=== PATIENT | male | born 1955 | race Two or more races ===

== ENCOUNTER 2018-08-04 18:55 | Emergency (ER) | payer MEDICARE, OTHER, MEDICAID ==
--- NOTE | 2018-08-04 19:18 | EDM.PDOC ---
ED HPI GENERAL MEDICAL PROBLEM - General Chief Complaint: Headache Stated Complaint: HIGH BP/HEADACHE/CHEST PRESSURE Time Seen by Provider: 08/04/18 19:17 - History of Present Illness INITIAL COMMENTS - FREE TEXT/NARRATIVE: 63-year-old male presents emergency room with chest discomfort headache and his blood pressure may be up. Patient is not felt warm last several days. His chest pain is not worsened with exercise does not improve presses just there. No associated nausea vomiting with this the pain does not radiate anywhere. Patient said a headache mostly in the right side of his head. His wonders if this is due to his blood pressure began up. His blood pressures not escalated here. Patient is treated for hyperlipidemia He has no history of coronary artery disease he takes Coumadin for blood clot he had a pulmonary embolism some time back his regular physician is in [facility]. Patient has not had significant cough no fevers or chills. Duration: Other (This is been going on about the last 3 days.) Treatments STATISTICAL GENETICIST: Reports: Other (see below) Other Treatments STATISTICAL GENETICIST: none Headache Pain Score (Numeric/FACES): 6 - Related Data Allergies Allergy/AdvReac Type Severity Reaction Status Date / Time No Known Allergies Allergy Verified 08/04/18 19:07 Home Meds: Home Meds Colchicine 0.6 mg PO QID PRN 08/04/18 [History] LORazepam [Ativan] 0.5 mg PO Q24H #7 tablet 08/04/18 [Rx] Pantoprazole Sodium [Protonix] 40 mg PO DAILY 08/04/18 [History] Silodosin 8 mg PO DAILY 08/04/18 [History] Telmisartan/Hydrochlorothiazid [Telmisartan-Hctz 80-12.5 mg Tb] 1 tab PO DAILY 08/04/18 [History] Warfarin [Coumadin] 5 mg PO DAILY 08/04/18 [History] Past Medical History Cardiovascular History: Reports: Hypertension Gastrointestinal History: Reports: GERD Genitourinary History: Reports: Prostate Disorder Musculoskeletal History: Reports: Gout Hematologic History: Reports: Polycythemia Other Hematologic History: has phlebotmy once a month - Past Surgical History Musculoskeletal Surgical History: Reports: Shoulder Surgery, Other (See Below) Other Musculoskeletal Surgeries/Procedures:: knee surgery Social & Family History - Tobacco Use Smoking Status *Q: Never Smoker - Caffeine Use Caffeine Use: Reports: Coffee, Soda, Tea - Recreational Drug Use Recreational Drug Use: No ED ROS GENERAL - Review of Systems Review Of Systems: See Below Constitutional: Reports: No Symptoms HEENT: Reports: No Symptoms Respiratory: Denies: Shortness of Breath Cardiovascular: Reports: Chest Pain (Mild). Denies: Dyspnea on Exertion, Edema , Lightheadedness, Palpitations Endocrine: Reports: No Symptoms GI/Abdominal: Reports: No Symptoms : Reports: No Symptoms Neurological: Reports: No Symptoms Psychiatric: Reports: No Symptoms - Physical Exam Exam: See Below Exam Limited By: Other General Appearance: Alert, No Apparent Distress Eye Exam: Bilateral Eye: Normal Inspection Ears: Normal External Exam, Normal Canal, Hearing Grossly Normal, Normal TMs Nose: Normal Inspection, Normal Mucosa, No Blood Throat/Mouth: Normal Inspection, Normal Lips, Normal Teeth, Normal Gums, Normal Oropharynx, Normal Voice, No Airway Compromise Head Exam: Atraumatic, Normocephalic Neck: Normal Inspection, Supple, Non-Tender, Full Range of Motion. No: Lymphadenopathy (L), Lymphadenopathy (R) Respiratory/Chest: No Respiratory Distress, Lungs Clear, Normal Breath Sounds GI/Abdominal: Normal Bowel Sounds, Soft, Non-Tender Rectal (Males) Exam: Rectal Fissure Neuro Exam (Abbreviated): Alert, Oriented Back Exam: Normal Inspection. No: CVA Tenderness (L), CVA Tenderness (R) Extremities: Normal Inspection, No Pedal Edema, Mottled Psychiatric: Normal Affect Skin Exam: Warm, Dry, Intact Course - Vital Signs Last Recorded V/S: Last Vital Signs Temp 37.6 C 08/04/18 19:16 Pulse 90 08/04/18 19:16 Resp 20 08/04/18 19:16 BP 135/104 H 08/04/18 19:16 Pulse Ox 95 08/04/18 19:16 - Orders/Labs/Meds Orders: Active Orders 24 hr Category Date Time Status EKG Documentation Completion [RC] STAT Care 08/04/18 19:38 Active Chest 1V Frontal [CR] Stat Exams 08/04/18 19:38 Taken Labs: Laboratory Tests 08/04/18 08/04/18 08/04/18 Range/Units 19:55 19:55 19:55 WBC 7.11 (4.23-9.07) K/mm3 RBC 6.88 H (4.63-6.08) M/mm3 Hgb 19.9 H (13.7-17.5) gm/L Hct 58.9 H (40.1-51.0) % MCV 85.6 (79.0-92.2) fl MCH 28.9 (25.7-32.2) pg MCHC 33.8 (32.2-35.5) g/dl RDW Std Deviation 47.6 H (35.1-43.9) fL Plt Count 151 L (163-337) K/mm3 MPV 12.6 H (9.4-12.3) fl Neutrophils % (Manual) 66 H (40-60) % Band Neutrophils % 0 (0-10) % Lymphocytes % (Manual) 25 (20-40) % Atypical Lymphs % 0 % Monocytes % (Manual) 7 (2-10) % Eosinophils % (Manual) 2 (0.8-7.0) % Basophils % (Manual) 0 L (0.2-1.2) Platelet Estimate Adequate RBC Morph Comment Normal PT (9.5-12.1) SECONDS INR Sodium 140 (136-145) mEq/L Potassium 3.9 (3.5-5.1) mEq/L Chloride 104 (98-107) mEq/L Carbon Dioxide 25 (21-32) mEq/L Anion Gap 14.9 (5-15) BUN 21 H (7-18) mg/dL Creatinine 1.2 (0.7-1.3) mg/dL Est Cr Clr Drug Dosing 60.17 mL/min Estimated GFR (MDRD) > 60 (>60) mL/min BUN/Creatinine Ratio 17.5 (14-18) Glucose 117 H (80-115) mg/dL Calcium 9.4 (8.5-10.1) mg/dL Magnesium 2.1 (1.8-2.4) mg/dl Total Bilirubin 0.7 (0.2-1.0) mg/dL AST 14 L (15-37) U/L ALT 24 (16-63) U/L Alkaline Phosphatase 122 H (46-116) U/L Troponin I < 0.017 (0.00-0.056) ng/mL Total Protein 7.4 (6.4-8.2) g/dl Albumin 4.0 (3.4-5.0) g/dl Globulin 3.4 gm/dL Albumin/Globulin Ratio 1.2 (1-2) Pre Ther Phlebot Pulse Pre Ther Phlebot BP Therapeut Phleb Volume mL Post Ther Phleb Pulse Post Ther Phlebot BP 08/04/18 08/04/18 Range/Units 19:55 20:53 WBC (4.23-9.07) K/mm3 RBC (4.63-6.08) M/mm3 Hgb (13.7-17.5) gm/L Hct (40.1-51.0) % MCV (79.0-92.2) fl MCH (25.7-32.2) pg MCHC (32.2-35.5) g/dl RDW Std Deviation (35.1-43.9) fL Plt Count (163-337) K/mm3 MPV (9.4-12.3) fl Neutrophils % (Manual) (40-60) % Band Neutrophils % (0-10) % Lymphocytes % (Manual) (20-40) % Atypical Lymphs % % Monocytes % (Manual) (2-10) % Eosinophils % (Manual) (0.8-7.0) % Basophils % (Manual) (0.2-1.2) Platelet Estimate RBC Morph Comment PT 14.1 H (9.5-12.1) SECONDS INR 1.30 Sodium (136-145) mEq/L Potassium (3.5-5.1) mEq/L Chloride (98-107) mEq/L Carbon Dioxide (21-32) mEq/L Anion Gap (5-15) BUN (7-18) mg/dL Creatinine (0.7-1.3) mg/dL Est Cr Clr Drug Dosing mL/min Estimated GFR (MDRD) (>60) mL/min BUN/Creatinine Ratio (14-18) Glucose (80-115) mg/dL Calcium (8.5-10.1) mg/dL Magnesium (1.8-2.4) mg/dl Total Bilirubin (0.2-1.0) mg/dL AST (15-37) U/L ALT (16-63) U/L Alkaline Phosphatase (46-116) U/L Troponin I (0.00-0.056) ng/mL Total Protein (6.4-8.2) g/dl Albumin (3.4-5.0) g/dl Globulin gm/dL Albumin/Globulin Ratio (1-2) Pre Ther Phlebot Pulse 94 Pre Ther Phlebot BP 152/134 Therapeut Phleb Volume 500 mL Post Ther Phleb Pulse 86 Post Ther Phlebot BP 131/101 - Re-Assessments/Exams Free Text/Narrative Re-Assessment/Exam: 08/04/18 21:21 Evaluation is basically unremarkable still waiting on his INR. He was phlebotomized one unit and feels much better chest pain gone headache gone awaiting his INR. He feels pretty good and is fairly insistent on going home he would like to give him some for his insomnia bothering him for the last 4-5 weeks we can give him a few Ativan. Departure - Departure Time of Disposition: 21:22 Disposition: Home, Self-Care 01 Clinical Impression: Polycythemia, Atypical chest pain, Cephalgia - Discharge Information Prescriptions: LORazepam [Ativan] 0.5 mg PO Q24H #7 tablet Referrals: PCP,Not In Area [Primary Care Provider] - Forms: ED Department Discharge Additional Instructions: Return to emergency room if any questions problems worsening symptoms. Take an extra Coumadin today and then be certain to take it one daily have your INR checked on Wednesday in the clinic [phone] take the rest of your medications as directed. To help his sleep and give new prescription for Ativan take one at bedtime as needed. - My Orders Last 24 Hours: My Active Orders 08/04/18 19:38 EKG Documentation Completion [RC] STAT Chest 1V Frontal [CR] Stat - Assessment/Plan Last 24 Hours: My Active Orders 08/04/18 19:38 EKG Documentation Completion [RC] STAT Chest 1V Frontal [CR] Stat
--- NOTE | 2018-08-05 07:15 | CR ---
Chest: Portable view of the chest was obtained. Comparison: No prior chest x-ray. If the film is marked correctly, patient has situs inversus. Tortuous thoracic aorta is seen. Heart size is normal for portable technique. Lungs are clear with no acute parenchymal change. Bony structures are grossly intact. Impression: 1. Possible situs inversus if the film is marked correctly. 2. Nothing acute is seen. Diagnostic code #2
== END 2018-08-04 21:35 | disposition home or self-care (01) ==
LOC: JD.ED 18:55
DX: R07.89 Other chest pain (principal); R51 Headache; D75.1 Secondary polycythemia; I10 Essential (primary) hypertension; K21.9 Gastro-esophageal reflux disease without esophagitis; Z79.899 Other long term (current) drug therapy; Z79.01 Long term (current) use of anticoagulants
CPT/HCPCS: 36415; 71045; 71045-26; 80053; 83735; 84484; 85007; 85027; 85610; 93005; 93010; 99195; 99284; 99285-25

== ENCOUNTER 2018-08-12 05:43 | Emergency (ER) | payer MEDICARE, MEDICAID ==
--- NOTE | 2018-08-12 06:18 | EDM.PDOC ---
ED HPI GENERAL MEDICAL PROBLEM - General Chief Complaint: Cardiovascular Problem Stated Complaint: BLOOD PRESSURE Time Seen by Provider: 08/12/18 05:55 Source of Information: Reports: Patient, Family (Son, ), RN Notes Reviewed History Limitations: Reports: Language Barrier (Son acted as marketing and promotions manager ) - History of Present Illness INITIAL COMMENTS - FREE TEXT/NARRATIVE: The patient's son states that the patient has been complaining of tingling to both of his forearms, a drowning sound in both of his ears, and a slight pain to both sides of his neck. He states that it's a "weird feeling" that is difficult to describe. He specifically denies having any chest pain, dyspnea, palpitations, nausea, vomiting, constipation, diarrhea, abdominal pain, or urinary symptoms. No recent diaphoresis. He has had these symptoms since approximately 07/21/2018. He and his are visiting from [place], although are considering moving out here. The patient's son feels that the patient's symptoms may be related to several of the patient's friends dying off. The patient has a history of a PE in 2009, and is on Coumadin. He also has a history of polycythemia, for which he receives therapeutic phlebotomy monthly, most recently 08/04/2018. Posterior Headache Pain Score (Numeric/FACES): 4 - Related Data Allergies Allergy/AdvReac Type Severity Reaction Status Date / Time No Known Allergies Allergy Verified 08/12/18 05:53 Home Meds: Home Meds Colchicine 0.6 mg PO QID PRN 08/04/18 [History] LORazepam [Ativan] 0.5 mg PO Q24H #7 tablet 08/04/18 [Rx] Pantoprazole Sodium [Protonix] 40 mg PO DAILY 08/04/18 [History] Silodosin 8 mg PO DAILY 08/04/18 [History] Telmisartan/Hydrochlorothiazid [Telmisartan-Hctz 80-12.5 mg Tb] 1 tab PO DAILY 08/04/18 [History] Warfarin [Coumadin] 5 mg PO DAILY 08/04/18 [History] Past Medical History Cardiovascular History: Reports: Blood Clots/VTE/DVT (PE around 2009), Hypertension, Other (See Below) (Dextrocardia) Gastrointestinal History: Reports: GERD Genitourinary History: Reports: BPH Musculoskeletal History: Reports: Gout (suspected) Endocrine/Metabolic History: Reports: Obesity/BMI 30+ Hematologic History: Reports: Polycythemia (receives monthly therapeutic phlebotomy) - Past Surgical History HEENT Surgical History: Reports: Cataract Surgery, Tonsillectomy Musculoskeletal Surgical History: Reports: Arthroscopic Knee (right), Shoulder Surgery (right, arthroscopic) Social & Family History - Tobacco Use Smoking Status *Q: Never Smoker - Caffeine Use Caffeine Use: Reports: Coffee, Soda, Tea - Alcohol Use Alcohol Use History: Yes Alcohol Use Frequency: Rarely - Recreational Drug Use Recreational Drug Use: No - Living Situation & Occupation Living situation: Reports: , with Spouse Occupation: Retired ED ROS GENERAL - Review of Systems Review Of Systems: ROS reveals no pertinent complaints other than HPI. ED EXAM, GENERAL - Physical Exam Exam: See Below Exam Limited By: No Limitations General Appearance: Alert, WD/WN, No Apparent Distress Ears: Normal External Exam, Hearing Grossly Normal Nose: Normal Inspection Throat/Mouth: Normal Inspection, Normal Lips, Normal Voice, No Airway Compromise Head: Atraumatic, Normocephalic Neck: Normal Inspection, Full Range of Motion Respiratory/Chest: No Respiratory Distress, Lungs Clear, Normal Breath Sounds, No Accessory Muscle Use Cardiovascular: Normal Peripheral Pulses, Regular Rate, Rhythm, No Edema, No Gallop, No JVD, No Murmur, No Rub, Other (Heart sounds are on right side of chest) Peripheral Pulses: 4+: Radial (L), Radial (R) GI/Abdominal: Normal Bowel Sounds, Soft, Non-Tender, No Organomegaly, No Distention, No Abnormal Bruit, No Mass, Other (Obese) (Male) Exam: Deferred Rectal (Males) Exam: Deferred Back Exam: Normal Inspection, Full Range of Motion, NT Extremities: Normal Inspection, Normal Range of Motion, Normal Capillary Refill Neurological: Alert, Normal Cognition, No Motor/Sensory Deficits Psychiatric: Normal Affect Skin Exam: Warm, Dry, Intact, Normal Color, No Rash EKG INTERPRETATION EKG Date: 08/12/18 Time: 06:56 Rhythm: Other (Sinus bradycardia) Rate (Beats/Min): 57 [place]: Other (Posterior axis) P-Wave: Present QRS: Normal (Late transition) ST-T: Normal (Lateral J-point elevation, but no ischemic changes) QT: Normal Course - Vital Signs Last Recorded V/S: Last Vital Signs Temp 36.5 C 08/12/18 05:52 Pulse 61 08/12/18 05:52 Resp 8 L 08/12/18 05:52 BP 159/108 H 08/12/18 05:52 Pulse Ox 96 08/12/18 05:52 - Orders/Labs/Meds Orders: Active Orders 24 hr Category Date Time Status EKG Documentation Completion [RC] STAT Care 08/12/18 06:41 Active Chest 2V [CR] Stat Exams 08/12/18 06:15 Taken CBC WITH MANUAL DIFF [HEME] Stat Lab 08/12/18 06:25 Results Labs: Laboratory Tests 08/12/18 08/12/18 08/12/18 Range/Units 06:25 06:25 06:25 WBC 4.58 (4.23-9.07) K/mm3 RBC 6.45 H (4.63-6.08) M/mm3 Hgb 18.5 H (13.7-17.5) gm/L Hct 55.7 H (40.1-51.0) % MCV 86.4 (79.0-92.2) fl MCH 28.7 (25.7-32.2) pg MCHC 33.2 (32.2-35.5) g/dl RDW Std Deviation 46.9 H (35.1-43.9) fL Plt Count 131 L (163-337) K/mm3 MPV 12.2 (9.4-12.3) fl PT 27.2 H (9.5-12.1) SECONDS INR 2.54 Sodium 138 (136-145) mEq/L Potassium 3.5 (3.5-5.1) mEq/L Chloride 104 (98-107) mEq/L Carbon Dioxide 27 (21-32) mEq/L Anion Gap 10.5 (5-15) BUN 15 (7-18) mg/dL Creatinine 0.9 (0.7-1.3) mg/dL Est Cr Clr Drug Dosing 80.22 mL/min Estimated GFR (MDRD) > 60 (>60) mL/min BUN/Creatinine Ratio 16.7 (14-18) Glucose 98 (80-115) mg/dL Calcium 9.1 (8.5-10.1) mg/dL Total Bilirubin 0.8 (0.2-1.0) mg/dL AST 15 (15-37) U/L ALT 18 (16-63) U/L Alkaline Phosphatase 105 (46-116) U/L Troponin I < 0.017 (0.00-0.056) ng/mL Total Protein 6.8 (6.4-8.2) g/dl Albumin 3.7 (3.4-5.0) g/dl Globulin 3.1 gm/dL Albumin/Globulin Ratio 1.2 (1-2) - Re-Assessments/Exams Free Text/Narrative Re-Assessment/Exam: 08/12/18 06:17 The patient has had these nonspecific symptoms for over 3 weeks. The patient's son feels like the patient is overly concerned about minor symptoms, because his friends are gradually dying. For today's purposes, I have ordered an ECG, a chest x-ray, and some blood work, just to make sure that nothing terrible is happening. If his workup today is unremarkable, I believe we can safely refer him to a PCP. 08/12/18 07:03 2-view chest radiograph reviewed. The patient appears to have dextrocardia, otherwise, his cardiac silhouette is within normal limits. No pulmonary vascular congestion. No pleural effusions. No focal infiltrate. No pneumothorax. Formal read per the Radiologist pending. 08/12/18 07:13 Test results discussed with the patient and his family. Today's workup is unremarkable. I will discharge him home with a referral to our clinic. Departure - Departure Time of Disposition: 07:14 Disposition: Home, Self-Care 01 Condition: Good Clinical Impression: Malaise - Discharge Information *PRESCRIPTION DRUG MONITORING PROGRAM REVIEWED*: Not Applicable *COPY OF PRESCRIPTION DRUG MONITORING REPORT IN PATIENT YESSENIA: Not Applicable Referrals: Gaby Trevino MD [Physician] - Forms: ED Department Discharge Additional Instructions: You were seen in the emergency room for tingling to both of your forearms, a droning sound your ears, neck pain, and a generally weird feeling. Workup in the ER included blood work, a chest x-ray, and an ECG. Your workup was unremarkable. You have dextrocardia = your heart is reversed, pointing to the right side of your chest instead of the left, but, otherwise, your workup was unremarkable. Your INR (Coumadin number) was therapeutic at 2.54. We recommend that you follow-up with Dr. Gaby Trevino, or one of the other providers in the clinic, at the next available appointment. If any other problems, please do not hesitate to return to the ER. - My Orders Last 24 Hours: My Active Orders 08/12/18 06:15 Chest 2V [CR] Stat 08/12/18 06:25 CBC WITH MANUAL DIFF [HEME] Stat 08/12/18 06:41 EKG Documentation Completion [RC] STAT - Assessment/Plan Last 24 Hours: My Active Orders 08/12/18 06:15 Chest 2V [CR] Stat 08/12/18 06:25 CBC WITH MANUAL DIFF [HEME] Stat 08/12/18 06:41 EKG Documentation Completion [RC] STAT
--- NOTE | 2018-08-12 10:54 | CR ---
Chest: Two views of the chest were obtained. Comparison: Prior portable chest x-ray of 08/04/18. Evidence of situs inversus. Heart size is normal. Upper mediastinum is normal. Lungs are clear with no acute parenchymal change. Mild degenerative change is scattered within the spine. Mild scoliosis is noted. Impression: 1. Situs inversus. 2. Nothing acute is appreciated on two-view chest x-ray. Diagnostic code #2
== END 2018-08-12 07:40 | disposition home or self-care (01) ==
LOC: JD.ED 05:43
DX: R53.81 Other malaise (principal)
CPT/HCPCS: 36415; 71046; 71046-26; 80053; 84484; 85007; 85027; 85610; 93005; 93010; 99282; 99284-25

== ENCOUNTER 2018-12-17 04:24 | Emergency (ER) | payer MEDICARE, OTHER, MEDICAID ==
[2018-12-17] MEDS ORDERED: Lidocaine 2% Jelly 10 ML Urojet MUCMEM ONE (05:16)
--- NOTE | 2018-12-17 05:18 | EDM.PDOC ---
ED HPI GENERAL MEDICAL PROBLEM - General Chief Complaint: Genitourinary Problem Stated Complaint: UNABLE TO URINATE SINCE 1AM Time Seen by Provider: 12/17/18 05:06 Source of Information: Reports: Patient, Family (Son, ) History Limitations: Reports: Language Barrier (Son served as instrument sterilizer) - History of Present Illness INITIAL COMMENTS - FREE TEXT/NARRATIVE: According to the patient's son, who served as a instrument sterilizer for the patient, the patient was able to urinate at 22:00 last night, before), but was then unable to urinate at 01:00. At the same time, he developed suprapubic pain. The patient had similar symptoms in 2013, requiring catheterization and follow- up with a Urologist in [place], who started him on silodosin (Rapaflo), that the patient is still taking. The patient denies recently running out of or skipping any doses of silodosin. The patient is no longer under the care of a Urologist; the silodosin is prescribed by his PCP. The patient reports that he had difficulty sleeping last night, therefore he took some NyQuil, which contains doxylamine succinate, an antihistamine. The patient recalls that he had also taken NyQuil prior to having urinary retention back in 2012, as well. The patient denies any recent illness, such as fever, chills, cough, chest discomfort, palpitations, dyspnea, nausea, vomiting, constipation, diarrhea, abdominal pain, recent weight gain or weight loss, recent bloody bowel movements or black bowel movements, recent joint aches, headaches, or rashes. No recent urinary symptoms, such as dysuria, urinary urgency, or urinary frequency. The patient's PCP is Radha Butt. Lower Abdominal Pain Score (Numeric/FACES): 8 - Related Data Allergies Allergy/AdvReac Type Severity Reaction Status Date / Time No Known Allergies Allergy Verified 12/17/18 05:31 Home Meds: Home Meds Colchicine 0.6 mg PO QID PRN 08/04/18 [History] Pantoprazole Sodium [Protonix] 40 mg PO DAILY 08/04/18 [History] Silodosin 8 mg PO DAILY 08/04/18 [History] Telmisartan/Hydrochlorothiazid [Telmisartan-Hctz 80-12.5 mg Tb] 1 tab PO DAILY 08/04/18 [History] Warfarin [Coumadin] 5 mg PO DAILY 08/04/18 [History] Allopurinol [Zyloprim] 300 mg PO DAILY 11/28/18 [History] Diclofenac Sodium [Voltaren] 50 mg PO BID PRN 11/28/18 [History] Furosemide 20 mg PO DAILY 11/28/18 [History] Past Medical History Cardiovascular History: Reports: Blood Clots/VTE/DVT (PE 2009), Hypertension, Other (See Below) (Dextrocardia) Gastrointestinal History: Reports: GERD Genitourinary History: Reports: BPH Musculoskeletal History: Reports: Gout (suspected, not confirmed) Endocrine/Metabolic History: Reports: Obesity/BMI 30+ Hematologic History: Reports: Polycythemia (monthly phlebotomy) - Past Surgical History HEENT Surgical History: Reports: Cataract Surgery (bilateral), Tonsillectomy Musculoskeletal Surgical History: Reports: Arthroscopic Knee (right), Shoulder Surgery (right, arthroscopic) Social & Family History - Tobacco Use Smoking Status *Q: Never Smoker Second Hand Smoke Exposure: No - Caffeine Use Caffeine Use: Reports: None - Alcohol Use Alcohol Use History: Yes Alcohol Use Frequency: Rarely - Recreational Drug Use Recreational Drug Use: No - Living Situation & Occupation Living situation: Reports: , with Spouse Occupation: Retired ED ROS GENERAL - Review of Systems Review Of Systems: ROS reveals no pertinent complaints other than HPI. ED EXAM, RENAL/ - Physical Exam Exam: See Below Exam Limited By: No Limitations General Appearance: Alert, WD/WN, Mild Distress (Appears uncomfortable) Eye Exam: Bilateral Eye: EOMI, Normal Inspection Ears: Normal External Exam, Hearing Grossly Normal Nose: Normal Inspection Throat/Mouth: Normal Inspection, Normal Lips, Normal Voice, No Airway Compromise Head: Atraumatic, Normocephalic Neck: Normal Inspection, Full Range of Motion Respiratory/Chest: No Respiratory Distress, Lungs Clear, Normal Breath Sounds, No Accessory Muscle Use Cardiovascular: Normal Peripheral Pulses, Regular Rate, Rhythm, No Gallop, No JVD, No Murmur, No Rub GI/Abdominal: Normal Bowel Sounds, Soft, No Organomegaly, No Distention, No Abnormal Bruit, No Mass, Tender (Suprapubic area only. Nontender elsewhere.), Other (Obese) (Male) Exam: Deferred Rectal (Males) Exam: Deferred Back Exam: Normal Inspection, Full Range of Motion. No: CVA Tenderness (L), CVA Tenderness (R) Extremities: Normal Inspection, Normal Range of Motion, No Pedal Edema, Normal Capillary Refill Neurological: Alert, Oriented, Normal Cognition, No Motor/Sensory Deficits Psychiatric: Normal Affect Skin Exam: Warm, Dry, Intact, Normal Color, No Rash Course - Vital Signs Last Recorded V/S: Last Vital Signs Temp 36.5 C 12/17/18 04:33 Pulse 85 12/17/18 04:33 Resp 20 12/17/18 04:33 BP 142/103 H 12/17/18 04:33 Pulse Ox - Orders/Labs/Meds Orders: Active Orders 24 hr Category Date Time Status Bladder Scan [RC] ASDIRECTED Care 12/17/18 05:15 Active Burnham Catheter Insertion [Insert Urinary Catheter] [OM. Care 12/17/18 05:15 Ordered PC] Q24H Urinary Catheter Assessment [RC] ASDIRECTED Care 12/17/18 05:16 Active Labs: Laboratory Tests 12/17/18 Range/Units 05:16 Urine Color Yellow (Yellow) Urine Appearance Clear (Clear) Urine pH 7.0 (5.0-8.0) Ur Specific [place] 1.015 (1.005-1.030) Urine Protein Negative (Negative) Urine Glucose (UA) Negative (Negative) Urine Ketones Negative (Negative) Urine Occult Blood 1+ H (Negative) Urine Nitrite Negative (Negative) Urine Bilirubin Negative (Negative) Urine Urobilinogen 0.2 (0.2-1.0) Ur Leukocyte Esterase Negative (Negative) Urine RBC 0-5 (0-5) /hpf Urine WBC 0-5 (0-5) /hpf Ur Squamous Epith Cells 0-5 (0-5) /hpf Urine Bacteria Rare (FEW) /hpf Urine Mucus Not seen (FEW) /hpf Meds: Medications Discontinued Medications Generic Name Dose Route Start Last Admin Trade Name Freq PRN Reason Stop Dose Admin Lidocaine HCl 10 ml 12/17/18 05:16 12/17/18 05:27 Xylocaine 2% Jelly MUCMEM 12/17/18 05:17 10 ml ONETIME ONE Administration - Re-Assessments/Exams Free Text/Narrative Re-Assessment/Exam: 12/17/18 05:17 The patient's bladder scan demonstrated >620 ml of urine. Following a Urojet, a Burnham catheter will be placed to a leg bag. We will send a urine sample for urinalysis. 12/17/18 06:01 The patient's urinalysis is normal. Given his history, the patient's urinary retention is most likely due to the doxylamine succinate in the NyQuil that he took last night. I will discharge him home with the recommendation that he follow-up in the office of his PCP this coming 12/19/2018, for Burnham catheter removal. If he is still unable to urinate following removal of the catheter, he should return to the ED for reinsertion of the catheter, after which he would need to follow-up with a Urologist. In meantime, however, I will also refer him to a Urologist. Departure - Departure Time of Disposition: 06:08 Disposition: Home, Self-Care 01 Condition: Good Clinical Impression: Urinary retention - Discharge Information *PRESCRIPTION DRUG MONITORING PROGRAM REVIEWED*: Not Applicable *COPY OF PRESCRIPTION DRUG MONITORING REPORT IN PATIENT YESSENIA: Not Applicable Referrals: Radha Butt NP [Primary Care Provider] - Matt Toscano MD [Ordering Only Provider] - Forms: ED Department Discharge Additional Instructions: You were seen in the emergency room after being unable to urinate. A bladder scan found more than 620 mL of urine in her bladder, therefore a Burnham catheter was placed to a leg bag. A urinalysis was checked, showing no sign of a urinary tract infection. Based on your history, your urinary retention is most likely due to the doxylamine succinate, an antihistamine, in the NyQuil that you took last night. Maintain your Burnham catheter as instructed. Be sure to keep the bag below your body level when you lie down at night, so that urine does not back flow into your bladder. Do not take any more NyQuil, ever. Avoid all antihistamines. Follow-up with your PCP, Radha Butt, this coming 12/19/2018, for removal of the Burnham catheter. If you redevelop the inability to urinate, please return to the ER for reinsertion of a Burnham catheter. In the meantime, we recommend that you make an appointment to follow-up with the Urologist Dr. Matt Toscano, in [place]. If any other problems, please do not hesitate to return to the ER. - My Orders Last 24 Hours: My Active Orders 12/17/18 05:15 Bladder Scan [RC] ASDIRECTED Burnham Catheter Insertion [Insert Urinary Catheter] [OM.PC] Q24H 12/17/18 05:16 Urinary Catheter Assessment [RC] ASDIRECTED - Assessment/Plan Last 24 Hours: My Active Orders 12/17/18 05:15 Bladder Scan [RC] ASDIRECTED Burnham Catheter Insertion [Insert Urinary Catheter] [OM.PC] Q24H 12/17/18 05:16 Urinary Catheter Assessment [RC] ASDIRECTED
== END 2018-12-17 06:31 | disposition home or self-care (01) ==
LOC: JD.ED 04:24
DX: N40.1 Benign prostatic hyperplasia with lower urinary tract symptoms (principal); R33.8 Other retention of urine; I10 Essential (primary) hypertension; K21.9 Gastro-esophageal reflux disease without esophagitis; E66.9 Obesity, unspecified; Z68.34 Body mass index [BMI] 34.0-34.9, adult; Z86.711 Personal history of pulmonary embolism; Z79.01 Long term (current) use of anticoagulants; Z79.899 Other long term (current) drug therapy
CPT/HCPCS: 51702; 81001; 99282; 99284

== ENCOUNTER 2018-12-17 19:06 | Emergency (ER) | payer MEDICARE, MEDICAID ==
--- NOTE | 2018-12-17 20:06 | EDM.PDOC ---
ED HPI GENERAL MEDICAL PROBLEM - General Chief Complaint: Genitourinary Problem Stated Complaint: catheter MISPLACED AND BURNING PUT IN THIS MORNING Time Seen by Provider: 12/17/18 19:49 Source of Information: Reports: Patient, Old Records, RN Notes Reviewed History Limitations: Reports: No Limitations - History of Present Illness INITIAL COMMENTS - FREE TEXT/NARRATIVE: Patient is a 63-year-old male who presents to the ED for the evaluation of catheter issues. The patient notes that he was in this ER this morning for difficulty urinating. He had a Burnham catheter placed today at around 5 AM. Patient states that this morning this was just fine, but as the day went on he has been developing some feelings of his bladder feeling full and issues with his catheter leaking. The patient did empty the leg bag at home, and was draining some urine that is dark regan color out of it. Patient states that he is not having too much pain at the site of the catheter, there is a little uncomfortableness. Penis Pain Score (Numeric/FACES): 6 - Related Data Allergies Allergy/AdvReac Type Severity Reaction Status Date / Time No Known Allergies Allergy Verified 12/17/18 05:31 Home Meds: Home Meds Colchicine 0.6 mg PO QID PRN 08/04/18 [History] Pantoprazole Sodium [Protonix] 40 mg PO DAILY 08/04/18 [History] Silodosin 8 mg PO DAILY 08/04/18 [History] Telmisartan/Hydrochlorothiazid [Telmisartan-Hctz 80-12.5 mg Tb] 1 tab PO DAILY 08/04/18 [History] Warfarin [Coumadin] 5 mg PO DAILY 08/04/18 [History] Allopurinol [Zyloprim] 300 mg PO DAILY 11/28/18 [History] Diclofenac Sodium [Voltaren] 50 mg PO BID PRN 11/28/18 [History] Furosemide 20 mg PO DAILY 11/28/18 [History] Past Medical History HEENT History: Reports: Cataract Cardiovascular History: Reports: Blood Clots/VTE/DVT, Hypertension, Other (See Below) Other Cardiovascular History: Dextrocardia Respiratory History: Reports: None Gastrointestinal History: Reports: GERD Genitourinary History: Reports: BPH 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 Musculoskeletal History: Reports: Gout Neurological History: Reports: None Psychiatric History: Reports: None Endocrine/Metabolic History: Reports: Obesity/BMI 30+ Hematologic History: Reports: Polycythemia Other Hematologic History: has phlebotmy once a month Immunologic History: Reports: None Oncologic (Cancer) History: Reports: None Dermatologic History: Reports: None - Past Surgical History Head Surgeries/Procedures: Reports: None HEENT Surgical History: Reports: Cataract Surgery, Tonsillectomy Respiratory Surgical History: Reports: None Neurological Surgical History: Reports: None Musculoskeletal Surgical History: Reports: Arthroscopic Knee, Shoulder Surgery Oncologic Surgical History: Reports: None Dermatological Surgical History: Reports: None Social & Family History - Tobacco Use Smoking Status *Q: Never Smoker - Caffeine Use Caffeine Use: Reports: Soda - Recreational Drug Use Recreational Drug Use: No - Living Situation & Occupation Living situation: Reports: , with Spouse Occupation: Retired ED ROS GENERAL - Review of Systems Review Of Systems: See Below Constitutional: Denies: Fever, Chills HEENT: Reports: No Symptoms Respiratory: Denies: Shortness of Breath Cardiovascular: Denies: Chest Pain Endocrine: Reports: No Symptoms GI/Abdominal: Denies: Abdominal Pain, Diarrhea, Nausea, Vomiting : Reports: Other (catheter leaking) Musculoskeletal: Reports: No Symptoms Skin: Reports: No Symptoms Neurological: Reports: No Symptoms Psychiatric: Reports: No Symptoms Hematologic/Lymphatic: Reports: No Symptoms Immunologic: Reports: No Symptoms ED EXAM, RENAL/ - Physical Exam Exam: See Below Exam Limited By: No Limitations General Appearance: Alert, WD/WN, No Apparent Distress Ears: Normal External Exam Nose: Normal Inspection Throat/Mouth: Normal Inspection, Normal Lips, Normal Teeth, Normal Gums, Normal Oropharynx, Normal Voice, No Airway Compromise Head: Atraumatic, Normocephalic Neck: Normal Inspection Respiratory/Chest: No Respiratory Distress, Lungs Clear, Normal Breath Sounds, No Accessory Muscle Use, Chest Non-Tender Cardiovascular: Normal Peripheral Pulses, Regular Rate, Rhythm, No Murmur GI/Abdominal: Normal Bowel Sounds, Soft, Non-Tender, No Distention, No Mass (Male) Exam: No Hernia, Normal Inspection, Other (Burnham catheter in place, there is some leaking noted from around the catheter at the tip of the penis. The patient's foreskin needed to be pulled back to appreciate the leaking.). No : Circumcised Extremities: Normal Inspection, Normal Capillary Refill Neurological: Alert, Oriented, Normal Cognition, No Motor/Sensory Deficits Psychiatric: Normal Affect, Normal Mood Skin Exam: Warm, Dry, Intact, Normal Color, No Rash Course - Vital Signs Last Recorded V/S: Last Vital Signs Temp 98.9 F 12/17/18 19:43 Pulse 69 12/17/18 19:43 Resp 20 12/17/18 19:43 BP 139/97 H 12/17/18 19:43 Pulse Ox 98 12/17/18 19:43 - Orders/Labs/Meds Orders: Active Orders 24 hr Category Date Time Status Burnham Catheter Insertion [Insert Urinary Catheter] [OM. Care 12/17/18 20:30 Ordered PC] Q24H Urinary Catheter Assessment [RC] ASDIRECTED Care 12/17/18 20:24 Ordered Meds: Medications Discontinued Medications Generic Name Dose Route Start Last Admin Trade Name Génesis PRN Reason Stop Dose Admin Lidocaine HCl 10 ml 12/17/18 20:24 12/17/18 20:46 Xylocaine 2% Jelly MUCMEM 12/17/18 20:25 Not Given ONETIME ONE - Re-Assessments/Exams Free Text/Narrative Re-Assessment/Exam: 12/17/18 20:07 Patient presents to the ER for some catheter issues. I will have the nurse troubleshoot this and make sure that the balloon is inflated to the proper level , and if this is not, we will simply replace the catheter. 12/17/18 21:17 The catheter was replaced successfully, the patient has not noticed any leaking from the new catheter site. Will discharge patient home with general recommendations. Departure - Departure Time of Disposition: 21:17 Disposition: Home, Self-Care 01 Condition: Fair Clinical Impression: Burnham catheter problem Qualifiers: Encounter type: initial encounter Qualified Code(s): T83.9XXA - Unspecified complication of genitourinary prosthetic device, implant and graft, initial encounter - Discharge Information *PRESCRIPTION DRUG MONITORING PROGRAM REVIEWED*: No *COPY OF PRESCRIPTION DRUG MONITORING REPORT IN PATIENT YESSENIA: No Instructions: Indwelling Urinary Catheter Care, Adult Referrals: Radha Butt DECORATING CONSULTANT [Primary Care Provider] - Forms: ED Department Discharge Additional Instructions: You were evaluated in the ED tonight for problems regarding your urinary catheter. Your urinary catheter was replaced with a new one, please follow your previous discharge instructions for removal on Wednesday at the clinic possibly. Please follow the initial instructions that if on Wednesday when you take the urinary catheter out that you are having some urinary retention that you return to the ER for placement of the catheter again. Please return to the ED if your symptoms should change or worsen. - My Orders Last 24 Hours: My Active Orders 12/17/18 20:24 Urinary Catheter Assessment [RC] ASDIRECTED 12/17/18 20:30 Burnham Catheter Insertion [Insert Urinary Catheter] [OM.PC] Q24H - Assessment/Plan Last 24 Hours: My Active Orders 12/17/18 20:24 Urinary Catheter Assessment [RC] ASDIRECTED 12/17/18 20:30 Burnham Catheter Insertion [Insert Urinary Catheter] [OM.PC] Q24H
[2018-12-17] MEDS ORDERED: Lidocaine 2% Jelly 10 ML Urojet MUCMEM ONE (20:24)
== END 2018-12-17 21:30 | disposition home or self-care (01) ==
LOC: JD.ED 19:06
DX: T83.038A Leakage of other urinary catheter, initial encounter (principal); I10 Essential (primary) hypertension; K21.9 Gastro-esophageal reflux disease without esophagitis; E66.9 Obesity, unspecified; Z79.890 Hormone replacement therapy; Z79.899 Other long term (current) drug therapy; Z98.890 Other specified postprocedural states; Z68.35 Body mass index [BMI] 35.0-35.9, adult
CPT/HCPCS: 51702; 99282; 99283

== ENCOUNTER 2018-12-19 14:41 | Emergency (ER) | payer MEDICARE, MEDICAID ==
--- NOTE | 2018-12-19 15:14 | EDM.PDOC ---
ED HPI GENERAL MEDICAL PROBLEM - General Chief Complaint: Genitourinary Problem Stated Complaint: CATHETER ISSUES Time Seen by Provider: 12/19/18 15:12 Source of Information: Reports: Patient, Family (Daughter) History Limitations: Reports: Language Barrier (Speaks mostly Pakistani) - History of Present Illness INITIAL COMMENTS - FREE TEXT/NARRATIVE: 63-year-old male Pakistani Pakistani descent presents to the ED for evaluation positive with his Burnham catheter. Burnham catheter was placed on Wednesday evening after he took NyQuil which contains Benadryl at to help sleep. He was unable to void most of the day on Wednesday. He attended the ER and a Burnham catheter was placed at that time. Burnham catheters continued to leak around the penis. This is due to bladder spasms. Education has worn off the Burnham catheter will simply be removed. His daughter acts as clinical quality manager. Onset: Sudden Onset Date: 12/16/18 Duration: Hour(s):, Day(s): Location: Reports: Other (Reveals a Burnahm catheter leaking around the catheter in the penis. Very little urine is entering the drainage bag.) Quality: Reports: Other Severity: Moderate (Burnham catheter problems as mentioned above.) Improves with: Reports: None Worsens with: Reports: None Context: Reports: Other (Acute urinary retention precipitated by Benadryl usage. ). Denies: Activity, Exercise, Lifting, Sick Contact, Trauma Associated Symptoms: Reports: Other (Suprapubic abdominal pain with intermittent bladder spasms.) Treatments POLITICAL SCIENTIST: Reports: Other (see below) (None.) - Related Data Allergies Allergy/AdvReac Type Severity Reaction Status Date / Time No Known Allergies Allergy Verified 12/19/18 14:53 Home Meds: Home Meds Colchicine 0.6 mg PO QID PRN 08/04/18 [History] Pantoprazole Sodium [Protonix] 40 mg PO DAILY 08/04/18 [History] Silodosin 8 mg PO DAILY 08/04/18 [History] Telmisartan/Hydrochlorothiazid [Telmisartan-Hctz 80-12.5 mg Tb] 1 tab PO DAILY 08/04/18 [History] Warfarin [Coumadin] 5 mg PO DAILY 08/04/18 [History] Allopurinol [Zyloprim] 300 mg PO DAILY 11/28/18 [History] Diclofenac Sodium [Voltaren] 50 mg PO BID PRN 11/28/18 [History] Furosemide 20 mg PO DAILY 11/28/18 [History] Past Medical History HEENT History: Reports: Cataract Cardiovascular History: Reports: Blood Clots/VTE/DVT, Hypertension, Other (See Below) Other Cardiovascular History: Dextrocardia Respiratory History: Reports: None Gastrointestinal History: Reports: GERD Genitourinary History: Reports: BPH 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 Musculoskeletal History: Reports: Gout Neurological History: Reports: None Psychiatric History: Reports: None Endocrine/Metabolic History: Reports: Obesity/BMI 30+ Hematologic History: Reports: Polycythemia Other Hematologic History: has phlebotmy once a month Immunologic History: Reports: None Oncologic (Cancer) History: Reports: None Dermatologic History: Reports: None - Past Surgical History Head Surgeries/Procedures: Reports: None HEENT Surgical History: Reports: Cataract Surgery, Tonsillectomy Respiratory Surgical History: Reports: None Neurological Surgical History: Reports: None Musculoskeletal Surgical History: Reports: Arthroscopic Knee, Shoulder Surgery Oncologic Surgical History: Reports: None Dermatological Surgical History: Reports: None Social & Family History - Tobacco Use Smoking Status *Q: Never Smoker - Caffeine Use Caffeine Use: Reports: Soda - Recreational Drug Use Recreational Drug Use: No - Living Situation & Occupation Living situation: Reports: , with Spouse Occupation: Retired ED ROS GENERAL - Review of Systems Review Of Systems: See Below Constitutional: Reports: Decreased Appetite. Denies: Fever, Chills, Malaise, Weakness, Fatigue, Weight Loss HEENT: Reports: No Symptoms Respiratory: Reports: No Symptoms Cardiovascular: Reports: Blood Pressure Problem. Denies: Chest Pain, Claudication, Dyspnea on Exertion, Edema, Lightheadedness, Orthopnea Endocrine: Reports: Fatigue GI/Abdominal: Reports: Abdominal Pain (Intermittent lower suprapubic abdominal pain due to bladder spasms.) : Reports: Other (Bladder spasms and causing your into extruded around the catheter through the urethra soaking his clothing.) Musculoskeletal: Reports: Back Pain, Joint Pain Skin: Reports: No Symptoms (Osteoarthritic changes) Neurological: Reports: No Symptoms Psychiatric: Reports: No Symptoms Hematologic/Lymphatic: Reports: No Symptoms Immunologic: Reports: No Symptoms ED EXAM, RENAL/ - Physical Exam Exam: See Below Exam Limited By: Language Barrier (Speaks mostly Pakistani. Daughter acts as clinical quality manager.) General Appearance: Alert, WD/WN, No Apparent Distress GI/Abdominal: Soft, Non-Tender, No Organomegaly, No Abnormal Bruit, No Mass, Pelvis Stable (Male) Exam: Other (Burnham catheter appears to be in adequate position. Draining yellow urine around the catheter probably secondary to bladder spasms. There is very little urine in the drainage bag.) Back Exam: Normal Inspection, Full Range of Motion. No: CVA Tenderness (L), CVA Tenderness (R) Extremities: Normal Inspection, Normal Range of Motion, Non-Tender Neurological: Alert, Oriented, CN II-XII Intact, Normal Cognition Psychiatric: Normal Affect, Normal Mood Skin Exam: Warm, Dry, Intact, Normal Color, No Rash Course - Vital Signs Last Recorded V/S: Last Vital Signs Temp 37.1 C 12/19/18 14:51 Pulse 80 12/19/18 14:51 Resp 16 12/19/18 14:51 BP 130/87 12/19/18 14:51 Pulse Ox 98 12/19/18 14:51 - Radiology Interpretation Free Text/Narrative:: 63-year-old male presents to the ED due to problems with his Burnham catheter. Burnham was placed on Wednesday evening after he presented to the ED in acute urinary retention which was felt to been precipitated by the use of Benadryl in NyQuil preparation. Burnham catheter is been in since that time but is continued to have drainage around the catheter causing his underwear to become completely soaked at times. He is getting suprapubic spastic pains compatible with bladder spasms. The medication would've been worn off at this time therefore the but the Burnham catheter will be removed discontinued. Return to the ED for Burnham catheter reinsertion it is not able to void normally within the next 8 hours. Departure - Departure Time of Disposition: 15:12 Disposition: Home, Self-Care 01 Condition: Fair Clinical Impression: Encounter for Burnham catheter removal - Discharge Information *PRESCRIPTION DRUG MONITORING PROGRAM REVIEWED*: Not Applicable *COPY OF PRESCRIPTION DRUG MONITORING REPORT IN PATIENT YESSENIA: Not Applicable Referrals: Radha Butt NP [Primary Care Provider] - Forms: ED Department Discharge Additional Instructions: Evaluation the emergency room today in regards to catheter problems. There was placed due to acute urinary retention probably induced by NyQuil which contains Benadryl and will cause the bladder to become paralyzed in older patients. Of note almost all sleep aids contain Benadryl and should be avoided. Since the medication taken Wednesday night has worn off the Burnham catheter will be removed at this time. Drink plenty of fluids and if not passing his water normally or unable to pass her water by 2300 hrs. tonight return to the ED for Burnham catheter insertion. Of note it may burn and sting a bit to avoid for the next 2 days due to the catheter being placed. This should go away after 48 hours.
== END 2018-12-19 15:30 | disposition home or self-care (01) ==
LOC: JD.ED 14:41
DX: Z46.89 Encounter for fitting and adjustment of other specified devices (principal); R10.30 Lower abdominal pain, unspecified; K21.9 Gastro-esophageal reflux disease without esophagitis; E66.9 Obesity, unspecified; Z68.30 Body mass index [BMI] 30.0-30.9, adult; Z79.899 Other long term (current) drug therapy; Z79.01 Long term (current) use of anticoagulants; Z98.890 Other specified postprocedural states
CPT/HCPCS: 99281; 99283

== ENCOUNTER 2018-12-21 13:40 | Inpatient (IN) | payer MEDICARE, MEDICAID ==
[2018-12-21] MEDS ORDERED: Sodium Chloride 0.9% 10 ML Syringe FLUSH PRN (15:49)
[2018-12-21] MEDS ORDERED: Ondansetron 4 MG/2 ML SDV IVPUSH ONE (15:49)
[2018-12-21] MEDS ORDERED: HYDROmorphone 1 MG/ML Syringe IVPUSH ONE (15:49)
[2018-12-21] MEDS ORDERED: Sodium Chloride 0.9% 1,000 ML IV ONE ×2 (15:49→16:53)
--- NOTE | 2018-12-21 16:55 | EDM.PDOC ---
ED HPI GENERAL MEDICAL PROBLEM - General Chief Complaint: Abdominal Pain Stated Complaint: SEVERE ABDOMINAL PAIN POST CATHETER REMOVAL Time Seen by Provider: 12/21/18 15:30 Source of Information: Reports: Patient, Old Records History Limitations: Reports: Language Barrier - History of Present Illness INITIAL COMMENTS - FREE TEXT/NARRATIVE: 63-year-old male presents for evaluation and treatment of suprapubic pain extending into his groin. patient has been seen in the ER 4 times in the last week for urinary retention. He had a Burnham catheter placed and this was removed on Wednesday. He has now has been able to urinate; only has a little bit at a time. The last day or she is now been experiencing suprapubic pain that radiates into his bilateral groin and low back. He reports feeling feverish and chilled. No nausea or vomiting. Reports that the pain is worse with movement. He has not been on any antibiotics recently. No Recent travel. He has not seen a urologist for his BPH. Review records show that he did have BPH on a previous CT scan. patient present speaks Kitt[place]. Suprapubic Pain Score (Numeric/FACES): 9 - Related Data Allergies Allergy/AdvReac Type Severity Reaction Status Date / Time No Known Allergies Allergy Verified 12/21/18 21:03 Home Meds: Home Meds Colchicine 0.6 mg PO QID PRN 08/04/18 [History] Pantoprazole Sodium [Protonix] 40 mg PO DAILY 08/04/18 [History] Silodosin 8 mg PO DAILY 08/04/18 [History] Telmisartan/Hydrochlorothiazid [Telmisartan-Hctz 80-12.5 mg Tb] 1 tab PO DAILY 08/04/18 [History] Warfarin [Coumadin] 5 mg PO DAILY 08/04/18 [History] Allopurinol [Zyloprim] 300 mg PO DAILY 11/28/18 [History] Ranitidine [Zantac] 150 mg PO BID 12/21/18 [History] Past Medical History HEENT History: Reports: Cataract Cardiovascular History: Reports: Blood Clots/VTE/DVT, Hypertension, Other (See Below) Other Cardiovascular History: Dextrocardia Respiratory History: Reports: None Gastrointestinal History: Reports: GERD Genitourinary History: Reports: BPH [employer] History: Reports: None Musculoskeletal History: Reports: Gout Neurological History: Reports: None Psychiatric History: Reports: None Endocrine/Metabolic History: Reports: Obesity/BMI 30+ Hematologic History: Reports: Polycythemia Other Hematologic History: has phlebotmy once a month Immunologic History: Reports: None Oncologic (Cancer) History: Reports: None Dermatologic History: Reports: None - Past Surgical History Head Surgeries/Procedures: Reports: None HEENT Surgical History: Reports: Cataract Surgery, Tonsillectomy Respiratory Surgical History: Reports: None Neurological Surgical History: Reports: None Musculoskeletal Surgical History: Reports: Arthroscopic Knee, Shoulder Surgery Oncologic Surgical History: Reports: None Dermatological Surgical History: Reports: None Social & Family History - Tobacco Use Smoking Status *Q: Never Smoker - Caffeine Use Caffeine Use: Reports: None - Recreational Drug Use Recreational Drug Use: No - Living Situation & Occupation Living situation: Reports: , with Spouse Occupation: Retired ED ROS GENERAL - Review of Systems Review Of Systems: See Below Constitutional: Reports: Fever, Chills GI/Abdominal: Reports: Abdominal Pain (suprapubic into groin ). Denies: Nausea , Vomiting : Reports: Urinary Retention Musculoskeletal: Reports: Back Pain (low back ) ED EXAM, GI/ABD - Physical Exam Exam: See Below Exam Limited By: No Limitations General Appearance: Alert, WD/WN, No Apparent Distress, Mild Distress, Obese Respiratory/Chest: No Respiratory Distress, Lungs Clear, Normal Breath Sounds Cardiovascular: Normal Peripheral Pulses, Regular Rate, Rhythm, No Murmur GI/Abdominal Exam: Normal Bowel Sounds, Soft, Guarding, Tender (suprapubic) Neurological: Alert, Oriented, Normal Cognition Psychiatric: Normal Affect, Normal Mood Skin Exam: Normal Color, Diaphoretic, Increased Warmth Course - Vital Signs Last Recorded V/S: Last Vital Signs Temp 97.7 F 12/21/18 20:34 Pulse 78 12/21/18 20:34 Resp 8 L 12/21/18 20:34 BP 118/83 12/21/18 22:53 Pulse Ox 100 12/21/18 20:34 - Orders/Labs/Meds Orders: Active Orders 24 hr Category Date Time Status CULTURE BLOOD [BC] Stat Lab 12/21/18 16:00 Received CULTURE BLOOD [BC] Stat Lab 12/21/18 16:15 Received CULTURE URINE [RM] Stat Lab 12/21/18 15:50 Received Sodium Chloride 0.9% [Saline Flush] Med 12/21/18 15:49 Active 10 ml FLUSH ASDIRECTED PRN Blood Culture x2 Reflex Set [OM.PC] Stat Oth 12/21/18 15:50 Ordered Peripheral IV Insertion Adult [OM.PC] Routine Oth 12/21/18 15:49 Ordered Medication Orders Acetaminophen (Tylenol) 650 mg PO Q4H PRN PRN Reason: Pain (Mild 1-3)/fever Hydrocodone Bitart/Acetaminophen (Lando 325-5 Mg) 1 tab PO Q4H PRN PRN Reason: Pain (moderate 4-6) Last Admin: 12/21/18 22:54 Dose: 1 tab Albuterol/Ipratropium (Duoneb 3.0-0.5 Mg/3 Ml) 3 ml NEB Q4H PRN PRN Reason: Shortness Of Breath/wheezing Allopurinol (Zyloprim) 300 mg PO DAILY HEATHER Amlodipine Besylate (Norvasc) 5 mg PO DAILY HEATHER Bisacodyl (Dulcolax) 5 mg PO DAILY PRN PRN Reason: Constipation Docusate Sodium (Colace) 100 mg PO BID PRN PRN Reason: Constipation Famotidine (Pepcid) 20 mg PO BID HEATHER Finasteride (Proscar) 5 mg PO BEDTIME HEATHER Furosemide (Lasix) 20 mg PO DAILY HEATHER Hydralazine HCl (Apresoline) 20 mg IVPUSH Q4H PRN PRN Reason: Hypertension Hydromorphone HCl (Dilaudid) 0.5 mg IVPUSH Q2H PRN PRN Reason: Pain (severe 7-10) Promethazine HCl 6.25 mg/ (Sodium Chloride) 50.25 mls @ 100 mls/hr IV Q6H PRN PRN Reason: Nausea/Vomiting Lorazepam (Ativan) 0.25 mg IV Q6H PRN PRN Reason: Anxiety Losartan Potassium (Cozaar) 25 mg PO DAILY HEATHER Metoprolol Tartrate (Lopressor) 5 mg IVPUSH Q4H PRN PRN Reason: Tachycardia Non-Formulary Medication (Colchicine [Colchicine]) 0.6 mg PO QID PRN PRN Reason: Other Non-Formulary Medication (Silodosin [Silodosin]) 8 mg PO DAILY [facility] Ondansetron HCl (Zofran) 4 mg IV Q6H PRN PRN Reason: Nausea/Vomiting Pantoprazole Sodium (Protonix) 40 mg PO ACBREAKFAST@0700 [facility] Polyethylene Glycol (Miralax) 17 gm PO DAILY PRN PRN Reason: Constipation Senna/Docusate Sodium (Senna Plus) 1 tab PO BID PRN PRN Reason: Constipation Sodium Chloride (Saline Flush) 10 ml FLUSH ASDIRECTED PRN PRN Reason: Keep Vein Open Last Admin: 12/21/18 16:05 Dose: 10 ml Temazepam (Restoril) 7.5 mg PO BEDTIME PRN PRN Reason: Sleep Warfarin Sodium (Coumadin) 5 mg PO DAILY@1800 [facility] Labs: Laboratory Tests 12/21/18 12/21/18 12/21/18 Range/Units 15:50 16:00 16:00 WBC (4.23-9.07) K/mm3 RBC (4.63-6.08) M/mm3 Hgb (13.7-17.5) gm/L Hct (40.1-51.0) % MCV (79.0-92.2) fl MCH (25.7-32.2) pg MCHC (32.2-35.5) g/dl RDW Std Deviation (35.1-43.9) fL Plt Count (163-337) K/mm3 MPV (9.4-12.3) fl Neutrophils % (Manual) (40-60) % Band Neutrophils % (0-10) % Lymphocytes % (Manual) (20-40) % Atypical Lymphs % % Monocytes % (Manual) (2-10) % Eosinophils % (Manual) (0.8-7.0) % Basophils % (Manual) (0.2-1.2) Platelet Estimate Plt Morphology Comment Anisocytosis RBC Morph Comment PT (9.7-12.0) SECONDS INR Sodium 133 L (136-145) mEq/L Potassium 3.5 (3.5-5.1) mEq/L Chloride 99 (98-107) mEq/L Carbon Dioxide 25 (21-32) mEq/L Anion Gap 12.5 (5-15) BUN 17 (7-18) mg/dL Creatinine 1.2 (0.7-1.3) mg/dL Est Cr Clr Drug Dosing 60.17 mL/min Estimated GFR (MDRD) > 60 (>60) mL/min BUN/Creatinine Ratio 14.2 (14-18) Glucose 161 H (80-115) mg/dL Hemoglobin A1c (4.50-6.20) % Lactic Acid 2.3 H (0.4-2.0) mmol/L Calcium 8.8 (8.5-10.1) mg/dL Total Bilirubin 1.6 H (0.2-1.0) mg/dL AST 21 (15-37) U/L ALT 18 (16-63) U/L Alkaline Phosphatase 88 (46-116) U/L C-Reactive Protein 20.6 H* (<1.0) mg/dL Total Protein 6.9 (6.4-8.2) g/dl Albumin 3.1 L (3.4-5.0) g/dl Globulin 3.8 gm/dL Albumin/Globulin Ratio 0.8 L (1-2) Urine Color Dark yellow (Yellow) Urine Appearance Clear (Clear) Urine pH 6.5 (5.0-8.0) Ur Specific [place] 1.020 (1.005-1.030) Urine Protein 1+ H (Negative) Urine Glucose (UA) Negative (Negative) Urine Ketones Trace H (Negative) Urine Occult Blood 2+ H (Negative) Urine Nitrite Positive H (Negative) Urine Bilirubin Negative (Negative) Urine Urobilinogen 1.0 (0.2-1.0) Ur Leukocyte Esterase Trace H (Negative) Urine RBC 10-20 H (0-5) /hpf Urine WBC 5-10 H (0-5) /hpf Ur Squamous Epith Cells 0-5 (0-5) /hpf Amorphous Sediment Few H (NOT SEEN) /hpf Urine Bacteria Many H (FEW) /hpf Urine Mucus Not seen (FEW) /hpf 12/21/18 12/21/18 12/21/18 Range/Units 16:02 16:02 16:02 WBC 9.38 H (4.23-9.07) K/mm3 RBC 6.14 H (4.63-6.08) M/mm3 Hgb 15.8 (13.7-17.5) gm/L Hct 46.8 (40.1-51.0) % MCV 76.2 L D (79.0-92.2) fl MCH 25.7 (25.7-32.2) pg MCHC 33.8 (32.2-35.5) g/dl RDW Std Deviation 42.7 (35.1-43.9) fL Plt Count 116 L (163-337) K/mm3 MPV 12.4 H (9.4-12.3) fl Neutrophils % (Manual) 88 H (40-60) % Band Neutrophils % 0 (0-10) % Lymphocytes % (Manual) 4 L (20-40) % Atypical Lymphs % 0 % Monocytes % (Manual) 8 (2-10) % Eosinophils % (Manual) 0 L (0.8-7.0) % Basophils % (Manual) 0 L (0.2-1.2) Platelet Estimate Decreased Plt Morphology Comment Normal Anisocytosis 1+ slight RBC Morph Comment Not Reportable PT 17.8 H (9.7-12.0) SECONDS INR 1.68 Sodium (136-145) mEq/L Potassium (3.5-5.1) mEq/L Chloride (98-107) mEq/L Carbon Dioxide (21-32) mEq/L Anion Gap (5-15) BUN (7-18) mg/dL Creatinine (0.7-1.3) mg/dL Est Cr Clr Drug Dosing mL/min Estimated GFR (MDRD) (>60) mL/min BUN/Creatinine Ratio (14-18) Glucose (80-115) mg/dL Hemoglobin A1c 5.70 (4.50-6.20) % Lactic Acid (0.4-2.0) mmol/L Calcium (8.5-10.1) mg/dL Total Bilirubin (0.2-1.0) mg/dL AST (15-37) U/L ALT (16-63) U/L Alkaline Phosphatase (46-116) U/L C-Reactive Protein (<1.0) mg/dL Total Protein (6.4-8.2) g/dl Albumin (3.4-5.0) g/dl Globulin gm/dL Albumin/Globulin Ratio (1-2) Urine Color (Yellow) Urine Appearance (Clear) Urine pH (5.0-8.0) Ur Specific [place] (1.005-1.030) Urine Protein (Negative) Urine Glucose (UA) (Negative) Urine Ketones (Negative) Urine Occult Blood (Negative) Urine Nitrite (Negative) Urine Bilirubin (Negative) Urine Urobilinogen (0.2-1.0) Ur Leukocyte Esterase (Negative) Urine RBC (0-5) /hpf Urine WBC (0-5) /hpf Ur Squamous Epith Cells (0-5) /hpf Amorphous Sediment (NOT SEEN) /hpf Urine Bacteria (FEW) /hpf Urine Mucus (FEW) /hpf Meds: Medications Generic Name Dose Route Start Last Admin Trade Name Freq PRN Reason Stop Dose Admin Acetaminophen 650 mg 12/21/18 21:43 Tylenol PO Q4H PRN Pain (Mild 1-3)/fever Hydrocodone Bitart/Acetaminophen 1 tab 12/21/18 21:43 12/21/18 22:54 Lando 325-5 Mg PO 1 tab Q4H PRN Administration Pain (moderate 4-6) Albuterol/Ipratropium 3 ml 12/21/18 21:43 Duoneb 3.0-0.5 Mg/3 Ml NEB Q4H PRN Shortness Of Breath/wheezing Allopurinol 300 mg 12/22/18 09:00 Zyloprim PO DAILY [facility] Amlodipine Besylate 5 mg 12/22/18 09:00 Norvasc PO DAILY [facility] Bisacodyl 5 mg 12/21/18 21:43 Dulcolax PO DAILY PRN Constipation Docusate Sodium 100 mg 12/21/18 21:43 Colace PO BID PRN Constipation Famotidine 20 mg 12/22/18 09:00 Pepcid PO BID [facility] Finasteride 5 mg 12/22/18 21:00 Proscar PO BEDTIME HEATHER Furosemide 20 mg 12/22/18 09:00 Lasix PO DAILY [facility] Hydralazine HCl 20 mg 12/21/18 21:19 Apresoline IVPUSH Q4H PRN Hypertension Hydromorphone HCl 0.5 mg 12/21/18 21:43 Dilaudid IVPUSH Q2H PRN Pain (severe 7-10) Promethazine HCl 6.25 mg/ 50.25 mls @ 100 mls/hr 12/21/18 21:43 Sodium Chloride IV Q6H PRN Nausea/Vomiting Lorazepam 0.25 mg 12/21/18 21:43 Ativan IV Q6H PRN Anxiety Losartan Potassium 25 mg 12/22/18 09:00 Cozaar PO DAILY [facility] Metoprolol Tartrate 5 mg 08/28/19 21:19 Lopressor IVPUSH Q4H PRN Tachycardia Non-Formulary Medication 0.6 mg 12/21/18 21:15 Colchicine [Colchicine] PO QID PRN Other Non-Formulary Medication 8 mg 12/22/18 09:00 Silodosin [Silodosin] PO DAILY [facility] Ondansetron HCl 4 mg 12/21/18 21:43 Zofran IV Q6H PRN Nausea/Vomiting Pantoprazole Sodium 40 mg 12/22/18 07:00 Protonix PO ACBREAKFAST@0700 [facility] Polyethylene Glycol 17 gm 12/21/18 21:43 Miralax PO DAILY PRN Constipation Senna/Docusate Sodium 1 tab 12/21/18 21:43 Senna Plus PO BID PRN Constipation Sodium Chloride 10 ml 12/21/18 15:49 12/21/18 16:05 Saline Flush FLUSH 10 ml ASDIRECTED PRN Administration Keep Vein Open Temazepam 7.5 mg 12/21/18 21:43 Restoril PO BEDTIME PRN Sleep Warfarin Sodium 5 mg 12/22/18 18:00 Coumadin PO DAILY@1800 [facility] Discontinued Medications Generic Name Dose Route Start Last Admin Trade Name Freq PRN Reason Stop Dose Admin Clonidine HCl 0.1 mg 12/21/18 21:25 12/21/18 22:53 Catapres PO 12/21/18 21:26 0.1 mg ONETIME ONE Administration Finasteride 5 mg 12/21/18 21:25 12/21/18 22:55 Proscar PO 12/21/18 21:26 5 mg NOW STA Administration Hydromorphone HCl 1 mg 12/21/18 15:49 12/21/18 16:13 Dilaudid IVPUSH 12/21/18 15:50 1 mg ONETIME ONE Administration Sodium Chloride 1,000 mls @ 999 mls/hr 12/21/18 15:49 12/21/18 16:15 Normal Saline IV 12/21/18 16:49 999 mls/hr ONETIME ONE Administration Sodium Chloride 1,000 mls @ 999 mls/hr 12/21/18 16:53 12/21/18 17:15 Normal Saline IV 12/21/18 17:53 999 mls/hr ONETIME ONE Administration Ceftriaxone Sodium 2 gm/ 100 mls @ 200 mls/hr 12/21/18 17:24 12/21/18 17:37 Sodium Chloride IV 12/21/18 17:53 200 mls/hr NOW STA Administration Non-Formulary Medication 1 tab 12/22/18 09:00 Telmisartan/Hydrochlorothiazid [Telmisartan-Hctz 80-12.5 Mg Tb] PO DAILY HEATHER Ondansetron HCl 4 mg 12/21/18 15:49 12/21/18 16:11 Zofran IVPUSH 12/21/18 15:50 4 mg ONETIME ONE Administration Warfarin Sodium 10 mg 12/21/18 21:17 Coumadin PO 12/21/18 21:18 ONETIME ONE Warfarin Sodium 5 mg 12/21/18 21:17 12/21/18 22:51 Coumadin PO 12/21/18 21:18 5 mg ONETIME ONE Administration - Radiology Interpretation Free Text/Narrative:: CT abdomen and pelvis Technique: Multiple axial sections were obtained from above the dome of the diaphragm inferiorly through the pubic symphysis. Intravenous and oral contrast was not utilized. Study has been performed as a ureteral stone protocol. Comparison: Prior CT abdomen and pelvis exam of 08/17/18. 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 Kidneys show no abnormal calcifications. No ureteral dilatation or ureteral stone is seen. Visualized lung bases shows mild bibasilar atelectasis. Liver contains no focal abnormality. Gallbladder contains no calcified gallstones. Spleen appears within normal limits. Adrenal glands show no nodule. Pancreas is within normal limits. Aorta shows no aneurysm. No retroperitoneal adenopathy is seen. No mesenteric abnormalities are seen. Markedly enlarged prostate gland is seen. No pelvic mass or adenopathy is identified. Appendix felt to be seen and is normal in size. No free fluid or inflammatory change is seen. Bone window settings were reviewed which shows diffuse disc space narrowing and endplate osteophytes within the spine. Impression: 1. No renal calculi, ureteral dilatation or ureteral stone is seen. 2. Markedly enlarged prostate gland. 3. Nothing acute is appreciated on noncontrast CT study of the abdomen and pelvis. - Re-Assessments/Exams Free Text/Narrative Re-Assessment/Exam: 12/21/18 19:06 reviewed the labs and imaging with the patient and his family. I do feel that he needs to be admitted for this UTI. Likley pyelo and possibly uroseptic with a lactic acid of 2.[address] Tejada, agrees to the admission. Patient will need to see urology as an outpatient in the near future. Patient and family made aware of this. Departure - Departure Time of Disposition: 19:20 Disposition: Admitted As Inpatient 65 Condition: Fair Clinical Impression: Pyelonephritis - Discharge Information *PRESCRIPTION DRUG MONITORING PROGRAM REVIEWED*: No *COPY OF PRESCRIPTION DRUG MONITORING REPORT IN PATIENT YESSENIA: No - My Orders Last 24 Hours: My Active Orders 12/21/18 15:49 Sodium Chloride 0.9% [Saline Flush] 10 ml FLUSH ASDIRECTED PRN Peripheral IV Insertion Adult [OM.PC] Routine 12/21/18 15:50 CULTURE URINE [RM] Stat Blood Culture x2 Reflex Set [OM.PC] Stat 12/21/18 16:00 CULTURE BLOOD [BC] Stat 12/21/18 16:15 CULTURE BLOOD [BC] Stat - Assessment/Plan Last 24 Hours: My Active Orders 12/21/18 15:49 Sodium Chloride 0.9% [Saline Flush] 10 ml FLUSH ASDIRECTED PRN Peripheral IV Insertion Adult [OM.PC] Routine 12/21/18 15:50 CULTURE URINE [RM] Stat Blood Culture x2 Reflex Set [OM.PC] Stat 12/21/18 16:00 CULTURE BLOOD [BC] Stat 12/21/18 16:15 CULTURE BLOOD [BC] Stat
[2018-12-21] MEDS ORDERED: cefTRIAXone 2 GM in Sodium Chloride 0.9% 100 ML IV STA (17:24)
--- NOTE | 2018-12-21 18:20 | CT ---
CT abdomen and pelvis Technique: Multiple axial sections were obtained from above the dome of the diaphragm inferiorly through the pubic symphysis. Intravenous and oral contrast was not utilized. Study has been performed as a ureteral stone protocol. Comparison: Prior CT abdomen and pelvis exam of 08/17/18. 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 Kidneys show no abnormal calcifications. No ureteral dilatation or ureteral stone is seen. Visualized lung bases shows mild bibasilar atelectasis. Liver contains no focal abnormality. Gallbladder contains no calcified gallstones. Spleen appears within normal limits. Adrenal glands show no nodule. Pancreas is within normal limits. Aorta shows no aneurysm. No retroperitoneal adenopathy is seen. No mesenteric abnormalities are seen. Markedly enlarged prostate gland is seen. No pelvic mass or adenopathy is identified. Appendix felt to be seen and is normal in size. No free fluid or inflammatory change is seen. Bone window settings were reviewed which shows diffuse disc space narrowing and endplate osteophytes within the spine. Impression: 1. No renal calculi, ureteral dilatation or ureteral stone is seen. 2. Markedly enlarged prostate gland. 3. Nothing acute is appreciated on noncontrast CT study of the abdomen and pelvis. Diagnostic code #3
--- NOTE | 2018-12-21 20:21 | PCM.HP.2 ---
H&P History of Present Illness - General Date of Service: 12/21/18 Admit Problem/Dx: Admission Diagnosis/Problem Admission Diagnosis/Problem Urinary tract infection Source of Information: Patient, Family, Old Records, Provider, RN Notes Reviewed , Significant Other History Limitations: Reports: Language Barrier - History of Present Illness Initial Comments - Free Text/Narative: This is a 63 yo Male with past medical hx/o Cataract, Hx/o Blood Clot, HTN, Dextrocardia, GERD, BPH, Gout, Polycythemia, and Obesity, who presents to ED with suprapubic pain with radiation into his groin. His symptom started Wednesday and was initially seen in ED for urinary retention. He was discharged with a guerrero catheter but came back in the evening due to leakage. His indwelling catheter was changed and he returned to ED this past Wednesday for removal. He did just fine up until yesterday. His daughter states that felt like he got a cold on Wednesday after he was rained on. His symptoms gradually worsen throughout the course of the day and yesterday he develops a subjective fever, chills, body aches, malaise, fatigue and too weak to walk. Patient carries a hx/o BPH on Silodosin. He has not seen a urologist since he moved here in [place] this past May. He has a new PCP (Radha Butt) but only seen her once unrelated to urinary retention. His is initial workup in ED shows a CBC remarkable for WBC of 9.38, RBC of 6.14 , MCV of 76.2, Platelet # of 116, MPV of 12.4, Neutrophils of 88%, and Lymphocytes of 4%. His coagulation studies show PT of 17.8 and INR of 1.68. His Chemistry is significant for Na of 133, BS of 161, LA of 2.3, Total Bilirubin of 1.6, CRP of 20.6 and Albumin of 3.1. His UA shows hematuria, many bacteria and adequate amount of WBC. His abdominal/pelvis CT scan report read as no renal calculi, ureteral dilatation or ureteral stone is seen. Markedly enlarged prostate gland. Nothing acute is appreciated on non-contrast CT study. Patient is primarily coming in for urinary tract infection secondary to recent guerrero catheter from urinary retention. HPI is supplied by his daughter at beside. He is primarily Korean speaker with limited [place] language skills. Suprapubic Pain Score (Numeric/FACES): 9 Left groin Pain Score (Numeric/FACES): 5 - Related Data Allergies/Adverse Reactions: Allergies Allergy/AdvReac Type Severity Reaction Status Date / Time No Known Allergies Allergy Verified 12/21/18 21:03 Home Medications: Home Meds Colchicine 0.6 mg PO QID PRN 08/04/18 [History] Pantoprazole Sodium [Protonix] 40 mg PO DAILY 08/04/18 [History] Silodosin 8 mg PO DAILY 08/04/18 [History] Telmisartan/Hydrochlorothiazid [Telmisartan-Hctz 80-12.5 mg Tb] 1 tab PO DAILY 08/04/18 [History] Warfarin [Coumadin] 5 mg PO DAILY 08/04/18 [History] Allopurinol [Zyloprim] 300 mg PO DAILY 11/28/18 [History] Ranitidine [Zantac] 150 mg PO BID 12/21/18 [History] Past Medical History HEENT History: Reports: Cataract Cardiovascular History: Reports: Blood Clots/VTE/DVT, Hypertension, Other (See Below) Other Cardiovascular History: Dextrocardia Respiratory History: Reports: None Gastrointestinal History: Reports: GERD Genitourinary History: Reports: BPH 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: Reports: None Musculoskeletal History: Reports: Gout Neurological History: Reports: None Psychiatric History: Reports: None Endocrine/Metabolic History: Reports: Obesity/BMI 30+ Hematologic History: Reports: Polycythemia Other Hematologic History: has phlebotmy once a month Immunologic History: Reports: None Oncologic (Cancer) History: Reports: None Dermatologic History: Reports: None - Past Surgical History Head Surgeries/Procedures: Reports: None HEENT Surgical History: Reports: Cataract Surgery, Tonsillectomy Respiratory Surgical History: Reports: None Neurological Surgical History: Reports: None Musculoskeletal Surgical History: Reports: Arthroscopic Knee, Shoulder Surgery Oncologic Surgical History: Reports: None Dermatological Surgical History: Reports: None Social & Family History - Tobacco Use Smoking Status *Q: Never Smoker - Caffeine Use Caffeine Use: Reports: None - Recreational Drug Use Recreational Drug Use: No - Living Situation & Occupation Living situation: Reports: , with Spouse Occupation: Retired H&P Review of Systems - Review of Systems: Review Of Systems: See Below General: Reports: Fever, Chills, Malaise, Weakness, Fatigue HEENT: Reports: No Symptoms Pulmonary: Denies: Shortness of Breath, Wheezing, Pleuritic Chest Pain, Cough Cardiovascular: Denies: Chest Pain, Palpitations, Dyspnea on Exertion, Lightheadedness, Syncope, Blood Pressure Problem Gastrointestinal: Reports: Abdominal Pain. Denies: Difficulty Swallowing, Nausea, Vomiting Genitourinary: Reports: Dysuria, Burning, Retention Musculoskeletal: Reports: No Symptoms, Back Pain Skin: Denies: Bruising, Erythema, Wound Psychiatric: Denies: Confusion, Anxiety, Agitation, Hallucinations, Suicidal Ideation, Homicidal Ideation, Hallucinations (Auditory) Neurological: Denies: Confusion, Difficulty Walking, Weakness, Gait Disturbance Hematologic/Lymphatic: Reports: No Symptoms Immunologic: Reports: No Symptoms Exam - Exam Exam: See Below - Vital Signs Vital Signs: Last Vital Signs Temp 36.2 C 12/21/18 13:50 Pulse 105 H 12/21/18 13:50 Resp 20 12/21/18 13:50 BP 108/77 12/21/18 13:50 Pulse Ox 94 L 12/21/18 13:50 Weight: 107.048 kg - Exam General: Alert, Oriented, Cooperative, Other (Obese) HEENT: Conjunctiva Clear, EACs Clear, EOMI, Hearing Intact, Mucosa Moist & [place] , Nares Patent, Normal Nasal Septum, Posterior Pharynx Clear, Pupils Equal, Pupils Reactive Lungs: Clear to Auscultation, Normal Respiratory Effort Cardiovascular: Regular Rate, Regular Rhythm GI/Abdominal Exam: Normal Bowel Sounds, Soft, Non-Tender, No Organomegaly, No Distention, No Abnormal Bruit, No Mass, Other (Obese) (Male) Exam: Deferred Rectal (Males) Exam: Deferred (CT scan shows markedly enlarged prostate) Back Exam: Normal Inspection, Decreased Range of Motion Extremities: Normal Inspection, Normal Range of Motion, Non-Tender, No Pedal Edema, Normal Capillary Refill Peripheral Pulses: 2+: Posterior Tibial (L), Posterior Tibial (R), Dorsalis Pedis (L), Dorsalis Pedis (R) Skin: Warm, Dry, Intact Neuro Extensive - Mental Status: Oriented x3, Normal Cognition, Memory Intact Neuro Extensive - Motor, Sensory, Reflexes: CN II-XII Intact, Normal Gait Psychiatric: Alert, Normal Affect, Normal Mood - Patient Data Lab Results Last 24 hrs: Laboratory Results - last 24 hr 12/21/18 12/21/18 12/21/18 Range/Units 15:50 16:00 16:00 WBC (4.23-9.07) K/mm3 RBC (4.63-6.08) M/mm3 Hgb (13.7-17.5) gm/L Hct (40.1-51.0) % MCV (79.0-92.2) fl MCH (25.7-32.2) pg MCHC (32.2-35.5) g/dl RDW Std Deviation (35.1-43.9) fL Plt Count (163-337) K/mm3 MPV (9.4-12.3) fl Neutrophils % (Manual) (40-60) % Band Neutrophils % (0-10) % Lymphocytes % (Manual) (20-40) % Atypical Lymphs % % Monocytes % (Manual) (2-10) % Eosinophils % (Manual) (0.8-7.0) % Basophils % (Manual) (0.2-1.2) Platelet Estimate Plt Morphology Comment Anisocytosis RBC Morph Comment PT (9.7-12.0) SECONDS INR Sodium 133 L (136-145) mEq/L Potassium 3.5 (3.5-5.1) mEq/L Chloride 99 (98-107) mEq/L Carbon Dioxide 25 (21-32) mEq/L Anion Gap 12.5 (5-15) BUN 17 (7-18) mg/dL Creatinine 1.2 (0.7-1.3) mg/dL Est Cr Clr Drug Dosing 60.17 mL/min Estimated GFR (MDRD) > 60 (>60) mL/min BUN/Creatinine Ratio 14.2 (14-18) Glucose 161 H (80-115) mg/dL Lactic Acid 2.3 H (0.4-2.0) mmol/L Calcium 8.8 (8.5-10.1) mg/dL Total Bilirubin 1.6 H (0.2-1.0) mg/dL AST 21 (15-37) U/L ALT 18 (16-63) U/L Alkaline Phosphatase 88 (46-116) U/L C-Reactive Protein 20.6 H* (<1.0) mg/dL Total Protein 6.9 (6.4-8.2) g/dl Albumin 3.1 L (3.4-5.0) g/dl Globulin 3.8 gm/dL Albumin/Globulin Ratio 0.8 L (1-2) Urine Color Dark yellow (Yellow) Urine Appearance Clear (Clear) Urine pH 6.5 (5.0-8.0) Ur Specific [place] 1.020 (1.005-1.030) Urine Protein 1+ H (Negative) Urine Glucose (UA) Negative (Negative) Urine Ketones Trace H (Negative) Urine Occult Blood 2+ H (Negative) Urine Nitrite Positive H (Negative) Urine Bilirubin Negative (Negative) Urine Urobilinogen 1.0 (0.2-1.0) Ur Leukocyte Esterase Trace H (Negative) Urine RBC 10-20 H (0-5) /hpf Urine WBC 5-10 H (0-5) /hpf Ur Squamous Epith Cells 0-5 (0-5) /hpf Amorphous Sediment Few H (NOT SEEN) /hpf Urine Bacteria Many H (FEW) /hpf Urine Mucus Not seen (FEW) /hpf 12/21/18 12/21/18 Range/Units 16:02 16:02 WBC 9.38 H (4.23-9.07) K/mm3 RBC 6.14 H (4.63-6.08) M/mm3 Hgb 15.8 (13.7-17.5) gm/L Hct 46.8 (40.1-51.0) % MCV 76.2 L D (79.0-92.2) fl MCH 25.7 (25.7-32.2) pg MCHC 33.8 (32.2-35.5) g/dl RDW Std Deviation 42.7 (35.1-43.9) fL Plt Count 116 L (163-337) K/mm3 MPV 12.4 H (9.4-12.3) fl Neutrophils % (Manual) 88 H (40-60) % Band Neutrophils % 0 (0-10) % Lymphocytes % (Manual) 4 L (20-40) % Atypical Lymphs % 0 % Monocytes % (Manual) 8 (2-10) % Eosinophils % (Manual) 0 L (0.8-7.0) % Basophils % (Manual) 0 L (0.2-1.2) Platelet Estimate Decreased Plt Morphology Comment Normal Anisocytosis 1+ slight RBC Morph Comment Not Reportable PT 17.8 H (9.7-12.0) SECONDS INR 1.68 Sodium (136-145) mEq/L Potassium (3.5-5.1) mEq/L Chloride (98-107) mEq/L Carbon Dioxide (21-32) mEq/L Anion Gap (5-15) BUN (7-18) mg/dL Creatinine (0.7-1.3) mg/dL Est Cr Clr Drug Dosing mL/min Estimated GFR (MDRD) (>60) mL/min BUN/Creatinine Ratio (14-18) Glucose (80-115) mg/dL Lactic Acid (0.4-2.0) mmol/L Calcium (8.5-10.1) mg/dL Total Bilirubin (0.2-1.0) mg/dL AST (15-37) U/L ALT (16-63) U/L Alkaline Phosphatase (46-116) U/L C-Reactive Protein (<1.0) mg/dL Total Protein (6.4-8.2) g/dl Albumin (3.4-5.0) g/dl Globulin gm/dL Albumin/Globulin Ratio (1-2) Urine Color (Yellow) Urine Appearance (Clear) Urine pH (5.0-8.0) Ur Specific [place] (1.005-1.030) Urine Protein (Negative) Urine Glucose (UA) (Negative) Urine Ketones (Negative) Urine Occult Blood (Negative) Urine Nitrite (Negative) Urine Bilirubin (Negative) Urine Urobilinogen (0.2-1.0) Ur Leukocyte Esterase (Negative) Urine RBC (0-5) /hpf Urine WBC (0-5) /hpf Ur Squamous Epith Cells (0-5) /hpf Amorphous Sediment (NOT SEEN) /hpf Urine Bacteria (FEW) /hpf Urine Mucus (FEW) /hpf Result Diagrams: 12/22/18 04:46 12/22/18 04:46 Problem List Initiated/Reviewed/Updated: Yes Orders Last 24hrs: Active Orders 24 hr Category Date Time Status Admission Status [Patient Status] [ADT] Routine ADT 12/21/18 19:19 Active Peripheral IV Care [RC] . DIRECTED Care 12/21/18 15:50 Active CULTURE BLOOD [BC] Stat Lab 12/21/18 16:00 Received CULTURE BLOOD [BC] Stat Lab 12/21/18 16:15 Received CULTURE URINE [RM] Stat Lab 12/21/18 15:50 Received Sodium Chloride 0.9% [Saline Flush] Med 12/21/18 15:49 Active 10 ml FLUSH ASDIRECTED PRN Blood Culture x2 Reflex Set [OM.PC] Stat Oth 12/21/18 15:50 Ordered Peripheral IV Insertion Adult [OM.PC] Routine Oth 12/21/18 15:49 Ordered Medication Orders Sodium Chloride (Saline Flush) 10 ml FLUSH ASDIRECTED PRN PRN Reason: Keep Vein Open Last Admin: 12/21/18 16:05 Dose: 10 ml Assessment/Plan Comment:: Assessment: Acute: UTI - 2/2 recent indwelling catheter use - Has urinary retention from markedly enlarged prostate - UA shows hematuria and bacteruria - Suprapubic pain with radiation to his groin - Afebrile and with mild leukocytosis in ED - IV Rocephin in ED; may resume medication or switch to PNC base if no response in AM Urinary Retention - 2/2 Markedly Enlarged Prostate - Recently had guerrero catheter for it - He is able to void now per family - Bladder scan showed 46 ml of retained urine - He is on Silodosin for maintenance medication - Add 5-AR Inhibitor - Urology eval after discharge Accelerated/Malignant HTN - Carries a hx/o HTN - BP of 141/120 mmHg - He takes ARB/HCT combo for maintenance medications - Clonidine po x1 and PRN IV Hydralazine for BP > 150/90 mmHg - Losartan 25 mg po daily, Lasix 20 mg po daily and Norvasc 5 mg po daily for inpatient maintenance medications Class II Obese - BMI of 35.9 - Advised LSM - Dietary consult for weight management Subtherapeutic INR - INR of 1.68 - Uncertain why he is on Warfarin - Per family due to Polycythemia with hx/o phlebotomy - He takes 5 mg po daily; will give 10 mg po x1 tonight Lactic Acidosis - 2/2 Infection - Received 2L of NS in ED - Repeat LA Chronic: Cataract, Hx/o Blood Clot, HTN, Dextrocardia, GERD, BPH, Gout, Polycythemia, and Obesity Plan: Admit to [facility] Resume Home Meds except HCTZ due to Gout Routine AM Labs Regular Diet Dietary consult for Gout Diet and Weight Management Daily INR PT/OT eval Need urology eval after discharge SW/CM for d/c planning Code status: full Additional orders as above - Mortality Measure Prognosis:: Good
[2018-12-21] MEDS ORDERED: Colchicine 0.6 MG Tab PO PRN (21:15)
[2018-12-21] MEDS ORDERED: Warfarin 5 MG Tab PO ONE (21:17)
[2018-12-21] MEDS ORDERED: Warfarin 10 MG Tab PO ONE (21:17)
[2018-12-21] MEDS ORDERED: Metoprolol Tartrate 5 MG/5 ML SDV IVPUSH PRN (21:19)
[2018-12-21] MEDS ORDERED: hydrALAZINE 20 MG/ML SDV IVPUSH PRN (21:19)
[2018-12-21] MEDS ORDERED: cloNIDine 0.1 MG Tab PO ONE (21:25)
[2018-12-21] MEDS ORDERED: Finasteride 5 MG Tab PO STA (21:25)
[2018-12-21 21:39] LABS: HEMOGLOBIN A1C 5.7 % (4.50-6.20)
[2018-12-21] MEDS ORDERED: Albuterol/Ipratropium 3.0-0.5 MG/3 ML Neb Soln NEB PRN (21:43)
[2018-12-21] MEDS ORDERED: HYDROmorphone 0.5 MG/0.5 ML Syringe IVPUSH PRN (21:43)
[2018-12-21] MEDS ORDERED: Ondansetron 4 MG/2 ML SDV IV PRN (21:43)
[2018-12-21] MEDS ORDERED: Docusate Sodium 100 MG Cap PO PRN (21:43)
[2018-12-21] MEDS ORDERED: Acetaminophen 325 MG Tab PO PRN (21:43)
[2018-12-21] MEDS ORDERED: Promethazine 6.25 MG in Sodium Chloride 0.9% 50 ML IV PRN (21:43)
[2018-12-21] MEDS ORDERED: Temazepam 7.5 MG Cap PO PRN (21:43)
[2018-12-21] MEDS ORDERED: LORazepam 2 MG/ML SDV IV PRN (21:43)
[2018-12-21] MEDS ORDERED: Bisacodyl 5 MG Tab PO PRN (21:43)
[2018-12-21] MEDS ORDERED: Polyethylene Glycol 3350 Powder 17 GM Packet PO PRN (21:43)
[2018-12-21] MEDS: Acetaminophen/HYDROcodone 325-5 MG Tab PO PRN (22:54)
[2018-12-22] MEDS: Acetaminophen/HYDROcodone 325-5 MG Tab PO PRN ×3 (06:50→22:36)
[2018-12-22] MEDS: Pantoprazole 40 MG Tab.CR PO SCH (06:51)
--- NOTE | 2018-12-22 07:25 | PCM.PN ---
- General Info Date of Service: 12/22/18 Admission Dx/Problem (Free Text): Admission Diagnosis/Problem Admission Diagnosis/Problem Urinary tract infection Subjective Update: Follow Up Functional Status: Reports: Pain Controlled, Tolerating Diet, Urinating. Denies : New Symptoms - Review of Systems General: Reports: Weakness. Denies: Fever, Chills HEENT: Reports: No Symptoms Pulmonary: Denies: Shortness of Breath Cardiovascular: Denies: Chest Pain, Dyspnea on Exertion, Lightheadedness Gastrointestinal: Denies: Abdominal Pain, Nausea, Vomiting Genitourinary: Reports: Other (left inguinal pain). Denies: Dysuria, Urgency, Retention Musculoskeletal: Reports: No Symptoms Skin: Reports: No Symptoms Neurological: Reports: Difficulty Walking, Weakness, Gait Disturbance. Denies: Confusion, Dizziness, Numbness, Paresthesia, Tingling Psychiatric: Denies: Depression, Anxiety, Agitation, Hallucinations Systems Review Comment:: Overnight he had trouble getting up and out of bed. He complains of left inguinal pain. It took 2 staff to help him get up. He rates his pain at 6/10. He denies any back pain, no numbness, tingling or radiation of pain on the affected limb. He carries no hx/o inguinal hernia. His inguinal U/S revealed no blood clot. PT/OT unable to formally examine him due to generalized weakness. - Patient Data Vitals - Most Recent: Last Vital Signs Temp 36.9 C 12/21/18 22:55 Pulse 94 12/21/18 22:55 Resp 24 H 12/21/18 22:55 BP 118/83 12/21/18 22:55 Pulse Ox 95 12/21/18 22:55 Weight - Most Recent: 107.048 kg I&O - Last 24 Hours: Intake & Output 12/21/18 12/22/18 12/22/18 22:59 06:59 14:59 Intake Total 700 Output Total 400 Balance 300 Lab Results Last 24 Hours: Laboratory Results - last 24 hr 12/21/18 12/21/18 12/21/18 Range/Units 15:50 16:00 16:00 WBC (4.23-9.07) K/mm3 RBC (4.63-6.08) M/mm3 Hgb (13.7-17.5) gm/L Hct (40.1-51.0) % MCV (79.0-92.2) fl MCH (25.7-32.2) pg MCHC (32.2-35.5) g/dl RDW Std Deviation (35.1-43.9) fL Plt Count (163-337) K/mm3 MPV (9.4-12.3) fl Neut % (Auto) (34.0-67.9) % Lymph % (Auto) (21.8-53.1) % [place] % (Auto) (5.3-12.2) % Eos % (Auto) (0.8-7.0) Baso % (Auto) (0.1-1.2) % Neut # (Auto) (1.78-5.38) K/mm3 Lymph # (Auto) (1.32-3.57) K/mm3 [place] # (Auto) (0.30-0.82) K/mm3 Eos # (Auto) (0.04-0.54) K/mm3 Baso # (Auto) (0.01-0.08) K/mm3 Neutrophils % (Manual) (40-60) % Band Neutrophils % (0-10) % Lymphocytes % (Manual) (20-40) % Atypical Lymphs % % Monocytes % (Manual) (2-10) % Eosinophils % (Manual) (0.8-7.0) % Basophils % (Manual) (0.2-1.2) Platelet Estimate Plt Morphology Comment Anisocytosis RBC Morph Comment PT (9.7-12.0) SECONDS INR Sodium 133 L (136-145) mEq/L Potassium 3.5 (3.5-5.1) mEq/L Chloride 99 (98-107) mEq/L Carbon Dioxide 25 (21-32) mEq/L Anion Gap 12.5 (5-15) BUN 17 (7-18) mg/dL Creatinine 1.2 (0.7-1.3) mg/dL Est Cr Clr Drug Dosing 60.17 mL/min Estimated GFR (MDRD) > 60 (>60) mL/min BUN/Creatinine Ratio 14.2 (14-18) Glucose 161 H (80-115) mg/dL Hemoglobin A1c (4.50-6.20) % Lactic Acid 2.3 H (0.4-2.0) mmol/L Calcium 8.8 (8.5-10.1) mg/dL Magnesium (1.8-2.4) mg/dl Total Bilirubin 1.6 H (0.2-1.0) mg/dL AST 21 (15-37) U/L ALT 18 (16-63) U/L Alkaline Phosphatase 88 (46-116) U/L Creatine Kinase (39-308) U/L C-Reactive Protein 20.6 H* (<1.0) mg/dL Total Protein 6.9 (6.4-8.2) g/dl Albumin 3.1 L (3.4-5.0) g/dl Globulin 3.8 gm/dL Albumin/Globulin Ratio 0.8 L (1-2) Urine Color Dark yellow (Yellow) Urine Appearance Clear (Clear) Urine pH 6.5 (5.0-8.0) Ur Specific [place] 1.020 (1.005-1.030) Urine Protein 1+ H (Negative) Urine Glucose (UA) Negative (Negative) Urine Ketones Trace H (Negative) Urine Occult Blood 2+ H (Negative) Urine Nitrite Positive H (Negative) Urine Bilirubin Negative (Negative) Urine Urobilinogen 1.0 (0.2-1.0) Ur Leukocyte Esterase Trace H (Negative) Urine RBC 10-20 H (0-5) /hpf Urine WBC 5-10 H (0-5) /hpf Ur Squamous Epith Cells 0-5 (0-5) /hpf Amorphous Sediment Few H (NOT SEEN) /hpf Urine Bacteria Many H (FEW) /hpf Urine Mucus Not seen (FEW) /hpf 12/21/18 12/21/18 12/21/18 Range/Units 16:02 16:02 16:02 WBC 9.38 H (4.23-9.07) K/mm3 RBC 6.14 H (4.63-6.08) M/mm3 Hgb 15.8 (13.7-17.5) gm/L Hct 46.8 (40.1-51.0) % MCV 76.2 L D (79.0-92.2) fl MCH 25.7 (25.7-32.2) pg MCHC 33.8 (32.2-35.5) g/dl RDW Std Deviation 42.7 (35.1-43.9) fL Plt Count 116 L (163-337) K/mm3 MPV 12.4 H (9.4-12.3) fl Neut % (Auto) (34.0-67.9) % Lymph % (Auto) (21.8-53.1) % [place] % (Auto) (5.3-12.2) % Eos % (Auto) (0.8-7.0) Baso % (Auto) (0.1-1.2) % Neut # (Auto) (1.78-5.38) K/mm3 Lymph # (Auto) (1.32-3.57) K/mm3 [place] # (Auto) (0.30-0.82) K/mm3 Eos # (Auto) (0.04-0.54) K/mm3 Baso # (Auto) (0.01-0.08) K/mm3 Neutrophils % (Manual) 88 H (40-60) % Band Neutrophils % 0 (0-10) % Lymphocytes % (Manual) 4 L (20-40) % Atypical Lymphs % 0 % Monocytes % (Manual) 8 (2-10) % Eosinophils % (Manual) 0 L (0.8-7.0) % Basophils % (Manual) 0 L (0.2-1.2) Platelet Estimate Decreased Plt Morphology Comment Normal Anisocytosis 1+ slight RBC Morph Comment Not Reportable PT 17.8 H (9.7-12.0) SECONDS INR 1.68 Sodium (136-145) mEq/L Potassium (3.5-5.1) mEq/L Chloride (98-107) mEq/L Carbon Dioxide (21-32) mEq/L Anion Gap (5-15) BUN (7-18) mg/dL Creatinine (0.7-1.3) mg/dL Est Cr Clr Drug Dosing mL/min Estimated GFR (MDRD) (>60) mL/min BUN/Creatinine Ratio (14-18) Glucose (80-115) mg/dL Hemoglobin A1c 5.70 (4.50-6.20) % Lactic Acid (0.4-2.0) mmol/L Calcium (8.5-10.1) mg/dL Magnesium (1.8-2.4) mg/dl Total Bilirubin (0.2-1.0) mg/dL AST (15-37) U/L ALT (16-63) U/L Alkaline Phosphatase (46-116) U/L Creatine Kinase (39-308) U/L C-Reactive Protein (<1.0) mg/dL Total Protein (6.4-8.2) g/dl Albumin (3.4-5.0) g/dl Globulin gm/dL Albumin/Globulin Ratio (1-2) Urine Color (Yellow) Urine Appearance (Clear) Urine pH (5.0-8.0) Ur Specific [place] (1.005-1.030) Urine Protein (Negative) Urine Glucose (UA) (Negative) Urine Ketones (Negative) Urine Occult Blood (Negative) Urine Nitrite (Negative) Urine Bilirubin (Negative) Urine Urobilinogen (0.2-1.0) Ur Leukocyte Esterase (Negative) Urine RBC (0-5) /hpf Urine WBC (0-5) /hpf Ur Squamous Epith Cells (0-5) /hpf Amorphous Sediment (NOT SEEN) /hpf Urine Bacteria (FEW) /hpf Urine Mucus (FEW) /hpf 12/21/18 12/21/18 12/22/18 Range/Units 21:42 21:42 04:46 WBC 7.10 (4.23-9.07) K/mm3 RBC 5.53 (4.63-6.08) M/mm3 Hgb 14.1 D (13.7-17.5) gm/L Hct 42.8 (40.1-51.0) % MCV 77.4 L (79.0-92.2) fl MCH 25.5 L (25.7-32.2) pg MCHC 32.9 (32.2-35.5) g/dl RDW Std Deviation 43.3 (35.1-43.9) fL Plt Count 106 L (163-337) K/mm3 MPV 12.4 H (9.4-12.3) fl Neut % (Auto) 80.9 H (34.0-67.9) % Lymph % (Auto) 8.6 L (21.8-53.1) % [place] % (Auto) 9.9 (5.3-12.2) % Eos % (Auto) 0 L (0.8-7.0) Baso % (Auto) 0.3 (0.1-1.2) % Neut # (Auto) 5.75 H (1.78-5.38) K/mm3 Lymph # (Auto) 0.61 L (1.32-3.57) K/mm3 [place] # (Auto) 0.70 (0.30-0.82) K/mm3 Eos # (Auto) 0.00 L (0.04-0.54) K/mm3 Baso # (Auto) 0.02 (0.01-0.08) K/mm3 Neutrophils % (Manual) (40-60) % Band Neutrophils % (0-10) % Lymphocytes % (Manual) (20-40) % Atypical Lymphs % % Monocytes % (Manual) (2-10) % Eosinophils % (Manual) (0.8-7.0) % Basophils % (Manual) (0.2-1.2) Platelet Estimate Plt Morphology Comment Anisocytosis RBC Morph Comment PT 17.4 H (9.7-12.0) SECONDS INR 1.64 Sodium (136-145) mEq/L Potassium (3.5-5.1) mEq/L Chloride (98-107) mEq/L Carbon Dioxide (21-32) mEq/L Anion Gap (5-15) BUN (7-18) mg/dL Creatinine (0.7-1.3) mg/dL Est Cr Clr Drug Dosing mL/min Estimated GFR (MDRD) (>60) mL/min BUN/Creatinine Ratio (14-18) Glucose (80-115) mg/dL Hemoglobin A1c (4.50-6.20) % Lactic Acid 1.3 (0.4-2.0) mmol/L Calcium (8.5-10.1) mg/dL Magnesium (1.8-2.4) mg/dl Total Bilirubin (0.2-1.0) mg/dL AST (15-37) U/L ALT (16-63) U/L Alkaline Phosphatase (46-116) U/L Creatine Kinase (39-308) U/L C-Reactive Protein (<1.0) mg/dL Total Protein (6.4-8.2) g/dl Albumin (3.4-5.0) g/dl Globulin gm/dL Albumin/Globulin Ratio (1-2) Urine Color (Yellow) Urine Appearance (Clear) Urine pH (5.0-8.0) Ur Specific [place] (1.005-1.030) Urine Protein (Negative) Urine Glucose (UA) (Negative) Urine Ketones (Negative) Urine Occult Blood (Negative) Urine Nitrite (Negative) Urine Bilirubin (Negative) Urine Urobilinogen (0.2-1.0) Ur Leukocyte Esterase (Negative) Urine RBC (0-5) /hpf Urine WBC (0-5) /hpf Ur Squamous Epith Cells (0-5) /hpf Amorphous Sediment (NOT SEEN) /hpf Urine Bacteria (FEW) /hpf Urine Mucus (FEW) /hpf 12/22/18 Range/Units 04:46 WBC (4.23-9.07) K/mm3 RBC (4.63-6.08) M/mm3 Hgb (13.7-17.5) gm/L Hct (40.1-51.0) % MCV (79.0-92.2) fl MCH (25.7-32.2) pg MCHC (32.2-35.5) g/dl RDW Std Deviation (35.1-43.9) fL Plt Count (163-337) K/mm3 MPV (9.4-12.3) fl Neut % (Auto) (34.0-67.9) % Lymph % (Auto) (21.8-53.1) % [place] % (Auto) (5.3-12.2) % Eos % (Auto) (0.8-7.0) Baso % (Auto) (0.1-1.2) % Neut # (Auto) (1.78-5.38) K/mm3 Lymph # (Auto) (1.32-3.57) K/mm3 [place] # (Auto) (0.30-0.82) K/mm3 Eos # (Auto) (0.04-0.54) K/mm3 Baso # (Auto) (0.01-0.08) K/mm3 Neutrophils % (Manual) (40-60) % Band Neutrophils % (0-10) % Lymphocytes % (Manual) (20-40) % Atypical Lymphs % % Monocytes % (Manual) (2-10) % Eosinophils % (Manual) (0.8-7.0) % Basophils % (Manual) (0.2-1.2) Platelet Estimate Plt Morphology Comment Anisocytosis RBC Morph Comment PT (9.7-12.0) SECONDS INR Sodium 132 L (136-145) mEq/L Potassium 3.5 (3.5-5.1) mEq/L Chloride 98 (98-107) mEq/L Carbon Dioxide 25 (21-32) mEq/L Anion Gap 12.5 (5-15) BUN 17 (7-18) mg/dL Creatinine 1.1 (0.7-1.3) mg/dL Est Cr Clr Drug Dosing 65.64 mL/min Estimated GFR (MDRD) > 60 (>60) mL/min BUN/Creatinine Ratio 15.5 (14-18) Glucose 111 (80-115) mg/dL Hemoglobin A1c (4.50-6.20) % Lactic Acid (0.4-2.0) mmol/L Calcium 8.2 L (8.5-10.1) mg/dL Magnesium 1.8 (1.8-2.4) mg/dl Total Bilirubin (0.2-1.0) mg/dL AST (15-37) U/L ALT (16-63) U/L Alkaline Phosphatase (46-116) U/L Creatine Kinase 278 (39-308) U/L C-Reactive Protein 22.9 H* (<1.0) mg/dL Total Protein (6.4-8.2) g/dl Albumin (3.4-5.0) g/dl Globulin gm/dL Albumin/Globulin Ratio (1-2) Urine Color (Yellow) Urine Appearance (Clear) Urine pH (5.0-8.0) Ur Specific [place] (1.005-1.030) Urine Protein (Negative) Urine Glucose (UA) (Negative) Urine Ketones (Negative) Urine Occult Blood (Negative) Urine Nitrite (Negative) Urine Bilirubin (Negative) Urine Urobilinogen (0.2-1.0) Ur Leukocyte Esterase (Negative) Urine RBC (0-5) /hpf Urine WBC (0-5) /hpf Ur Squamous Epith Cells (0-5) /hpf Amorphous Sediment (NOT SEEN) /hpf Urine Bacteria (FEW) /hpf Urine Mucus (FEW) /hpf Med Orders - Current: Current Medications Acetaminophen (Tylenol) 650 mg PO Q4H PRN PRN Reason: Pain (Mild 1-3)/fever Hydrocodone Bitart/Acetaminophen ([place] 325-5 Mg) 1 tab PO Q4H PRN PRN Reason: Pain (moderate 4-6) Last Admin: 12/22/18 06:50 Dose: 1 tab Albuterol/Ipratropium (Duoneb 3.0-0.5 Mg/3 Ml) 3 ml NEB Q4H PRN PRN Reason: Shortness Of Breath/wheezing Allopurinol (Zyloprim) 300 mg PO DAILY [facility] Amlodipine Besylate (Norvasc) 5 mg PO DAILY [facility] Bisacodyl (Dulcolax) 5 mg PO DAILY PRN PRN Reason: Constipation Colchicine (Colcrys) 0.6 mg PO QID PRN PRN Reason: Other Docusate Sodium (Colace) 100 mg PO BID PRN PRN Reason: Constipation Famotidine (Pepcid) 20 mg PO BID [facility] Finasteride (Proscar) 5 mg PO BEDTIME [facility]ATH[facility] Furosemide (Lasix) 20 mg PO DAILY [facility] Hydralazine HCl (Apresoline) 20 mg IVPUSH Q4H PRN PRN Reason: Hypertension Hydromorphone HCl (Dilaudid) 0.5 mg IVPUSH Q2H PRN PRN Reason: Pain (severe 7-10) Promethazine HCl 6.25 mg/ (Sodium Chloride) 50.25 mls @ 100 mls/hr IV Q6H PRN PRN Reason: Nausea/Vomiting Lorazepam (Ativan) 0.25 mg IV Q6H PRN PRN Reason: Anxiety Losartan Potassium (Cozaar) 25 mg PO DAILY [facility] Metoprolol Tartrate (Lopressor) 5 mg IVPUSH Q4H PRN PRN Reason: Tachycardia Ondansetron HCl (Zofran) 4 mg IV Q6H PRN PRN Reason: Nausea/Vomiting Pantoprazole Sodium (Protonix) 40 mg PO ACBREAKFAST@0700 [facility] Last Admin: 12/22/18 06:51 Dose: 40 mg Silodosin 8 Mg 0 each PO DAILY [facility] Polyethylene Glycol (Miralax) 17 gm PO DAILY PRN PRN Reason: Constipation Senna/Docusate Sodium (Senna Plus) 1 tab PO BID PRN PRN Reason: Constipation Sodium Chloride (Saline Flush) 10 ml FLUSH ASDIRECTED PRN PRN Reason: Keep Vein Open Last Admin: 12/21/18 16:05 Dose: 10 ml Temazepam (Restoril) 7.5 mg PO BEDTIME PRN PRN Reason: Sleep Warfarin Sodium (Coumadin) 5 mg PO DAILY@1800 [facility] Discontinued Medications Clonidine HCl (Catapres) 0.1 mg PO ONETIME ONE Stop: 12/21/18 21:26 Last Admin: 12/21/18 22:53 Dose: 0.1 mg Finasteride (Proscar) 5 mg PO NOW STA Stop: 12/21/18 21:26 Last Admin: 12/21/18 22:55 Dose: 5 mg Hydromorphone HCl (Dilaudid) 1 mg IVPUSH ONETIME ONE Stop: 12/21/18 15:50 Last Admin: 12/21/18 16:13 Dose: 1 mg Sodium Chloride (Normal Saline) 1,000 mls @ 999 mls/hr IV ONETIME ONE Stop: 12/21/18 16:49 Last Admin: 12/21/18 16:15 Dose: 999 mls/hr Sodium Chloride (Normal Saline) 1,000 mls @ 999 mls/hr IV ONETIME ONE Stop: 12/21/18 17:53 Last Admin: 12/21/18 17:15 Dose: 999 mls/hr Ceftriaxone Sodium 2 gm/ (Sodium Chloride) 100 mls @ 200 mls/hr IV NOW STA Stop: 12/21/18 17:53 Last Admin: 12/21/18 17:37 Dose: 200 mls/hr Non-Formulary Medication (Telmisartan/Hydrochlorothiazid [Telmisartan-Hctz 80- 12.5 Mg Tb]) 1 tab PO DAILY [facility]ATHER Ondansetron HCl (Zofran) 4 mg IVPUSH ONETIME ONE Stop: 12/21/18 15:50 Last Admin: 12/21/18 16:11 Dose: 4 mg Warfarin Sodium (Coumadin) 10 mg PO ONETIME ONE Stop: 12/21/18 21:18 Warfarin Sodium (Coumadin) 5 mg PO ONETIME ONE Stop: 12/21/18 21:18 Last Admin: 12/21/18 22:51 Dose: 5 mg - Exam General: Alert, Oriented, Cooperative, Mild Distress, Other (Obese) HEENT: Pupils Equal, Pupils Reactive, EOMI, Mucous Membr. Moist/[place] Neck: Supple Lungs: Clear to Auscultation, Normal Respiratory Effort Cardiovascular: Regular Rate, Regular Rhythm GI/Abdominal Exam: Normal Bowel Sounds, Soft, Non-Tender, No Organomegaly, No Distention, No Abnormal Bruit, Other (Obese) (Male) Exam: Other (Tender on left inguinal). No: Hernia, Inguinal Lymphadenopathy Back Exam: Normal Inspection Extremities: Normal Inspection, Normal Range of Motion, Non-Tender, No Pedal Edema, Normal Capillary Refill, Other (Left leg: pain with passive movements ). No: Janessa's Sign Peripheral Pulses: 2+: Posterior Tibial (L), Posterior Tibial (R), Dorsalis Pedis (L), Dorsalis Pedis (R) Skin: Warm, Dry, Intact Neurological: No New Focal Deficit (limited due to pain with movement), Sensation Intact. No: Normal Gait Psy/Mental Status: Alert, Normal Affect, Normal Mood - Problem List Review Problem List Initiated/Reviewed/Updated: Yes - My Orders Last 24 Hours: My Active Orders 12/21/18 21:15 Colchicine [Colcrys] 0.6 mg PO QID PRN 12/21/18 21:19 Metoprolol Tartrate [Lopressor] 5 mg IVPUSH Q4H PRN hydrALAZINE [Apresoline] 20 mg IVPUSH Q4H PRN 12/21/18 21:24 Consult to Dietary [Consult to Hand Twister] [CONS] Routine 12/21/18 21:43 Height and Weight [RC] 04 Intake and Output [RC] 04,16 Oxygen Therapy [RC] PRN Up ad Sadie [RC] ASDIRECTED VTE/DVT Education [RC] DAILY Vital Signs [RC] Q4HR Consult to Case Management/Automatic I Threading Machine Feeder [CONS] Routine OT Evaluation and Treatment [CONS] Routine PT Evaluation and Treatment [CONS] Routine Acetaminophen [Tylenol] 650 mg PO Q4H PRN Acetaminophen/HYDROcodone [[place] 325-5 MG] 1 tab PO Q4H PRN Albuterol/Ipratropium [DuoNeb 3.0-0.5 MG/3 ML] 3 ml NEB Q4H PRN Bisacodyl [Dulcolax] 5 mg PO DAILY PRN Docusate Sodium [Colace] 100 mg PO BID PRN Docusate Sodium/Sennosides [Senna Plus] 1 tab PO BID PRN HYDROmorphone [Dilaudid] 0.5 mg IVPUSH Q2H PRN LORazepam [Ativan] 0.25 mg IV Q6H PRN Ondansetron [Zofran] 4 mg IV Q6H PRN Polyethylene Glycol 3350 [MiraLAX] 17 gm PO DAILY PRN Promethazine [Phenergan] 6.25 mg Sodium Chloride 0.9% [Normal Saline] 50 ml IV Q6H Temazepam [Restoril] 7.5 mg PO BEDTIME PRN Resuscitation Status Routine 12/21/18 21:44 Antiembolic Devices [RC] BID Sequential Compression Device [OM.PC] Per Unit Routine 12/21/18 21:45 RT Aerosol Therapy [RC] ASDIRECTED 12/21/18 Breakfast Regular Diet [DIET] 12/22/18 04:46 BASIC METABOLIC PANEL,BMP [CHEM] AM C-REACTIVE PROTEIN [CHEM] AM CBC WITH AUTO DIFF [HEME] AM CREATINE KINASE,CK [CHEM] AM MAGNESIUM [CHEM] AM VITAMIN D,25-HYDROXY [CHEM] AM 12/22/18 07:00 Pantoprazole [ProTONIX] 40 mg PO ACBREAKFAST@0700 12/22/18 09:00 Allopurinol [Zyloprim] 300 mg PO DAILY Famotidine [Pepcid] 20 mg PO BID Furosemide [Lasix] 20 mg PO DAILY Losartan [Cozaar] 25 mg PO DAILY Patient's Own Medication [Ptom] 0 each PO DAILY amLODIPine [Norvasc] 5 mg PO DAILY 12/22/18 18:00 Warfarin [Coumadin] 5 mg PO DAILY@1800 12/22/18 21:00 Finasteride [Proscar] 5 mg PO BEDTIME 12/23/18 05:11 BASIC METABOLIC PANEL,BMP [CHEM] AM C-REACTIVE PROTEIN [CHEM] AM CBC WITH AUTO DIFF [HEME] AM MAGNESIUM [CHEM] AM 12/24/18 05:11 BASIC METABOLIC PANEL,BMP [CHEM] AM C-REACTIVE PROTEIN [CHEM] AM CBC WITH AUTO DIFF [HEME] AM MAGNESIUM [CHEM] AM 12/25/18 05:11 BASIC METABOLIC PANEL,BMP [CHEM] AM C-REACTIVE PROTEIN [CHEM] AM CBC WITH AUTO DIFF [HEME] AM MAGNESIUM [CHEM] AM 12/26/18 05:11 BASIC METABOLIC PANEL,BMP [CHEM] AM C-REACTIVE PROTEIN [CHEM] AM CBC WITH AUTO DIFF [HEME] AM MAGNESIUM [CHEM] AM - Plan Plan:: Assessment: Acute: UTI - 2/2 recent indwelling catheter use - Has urinary retention from markedly enlarged prostate - UA shows hematuria and bacteruria--> GNR - Suprapubic pain with radiation to his left groin - Afebrile and with mild leukocytosis in ED - IV Zosyn Q6H due to no response with IV Rocephin Urinary Retention - 2/2 Markedly Enlarged Prostate - Recently had guerrero catheter for it - He is able to void now per family - Bladder scan showed 46 ml of retained urine - He is on Silodosin for maintenance medication - Add 5-AR Inhibitor - Urology eval after discharge Class II Obese - BMI of 35.9 - Advised LSM - Dietary consult for weight management Subtherapeutic INR - INR of 1.68-->1.80 - Uncertain why he is on Warfarin - Per family due to Polycythemia with hx/o phlebotomy - He takes 5 mg po daily; will give 10 mg po x1 tonight - Pharmacy to dose warfarin starting today Left Groin Pain with Generalized Weakness - Suspect 2/2 Arthritic Changes - No back pain, numbness or tingling to bilateral lower extremities - Reviewed Abdominal/Pelvis CT scan report: shows diffuse disc space narrowing and endplate osteophytes within the spine. Nothing acute is appreciated - U/S shows no blood clot - Uric Acid level is wnl - Originally ordered abdominal/pelvis/hip MRI but after discussing it with Dr. Cazares, he recommended Abdominal/Pelvis CTA - Abdominal/Pelvis CTA report: Slight atherosclerotic calcification within the common iliac arteries. No aorto-iliac dissection or occlusion. Branch vessels off the aorta also show no occlusion or focal stenosis. Degenerative change within the spine as well as vacuum phenomena within the sacroiliac joints - Lumbar x-ray done on 10/31/2018: Scoliosis as well as diffuse degenerative change - Pain with adduction, abduction, interna/external rotation, straight leg raise and flexion motion - Symptom may improve with weight loss - PRN pain medications, muscle relaxant, as well as PT/OT - If no response, consider ortho consult in AM Resolved: S/p Lactic Acidosis - 2/2 Infection - Received 2L of NS in ED - Repeat LA S/p Accelerated/Malignant HTN - Carries a hx/o HTN - BP of 141/120 mmHg - He takes ARB/HCT combo for maintenance medications - Clonidine po x1 and PRN IV Hydralazine for BP > 150/90 mmHg - Losartan 25 mg po daily, Lasix 20 mg po daily and Norvasc 5 mg po daily for inpatient maintenance medications Chronic: Cataract, Hx/o Blood Clot, HTN, Dextrocardia, GERD, BPH, Gout, Polycythemia, and Obesity Plan: Admit to [facility] Resume Home Meds except HCTZ due to Gout Routine AM Labs Regular Diet Dietary consult for Gout Diet and Weight Management Daily INR PT/OT eval Need urology eval after discharge SW/CM for d/c planning Code status: full Additional orders as above
[2018-12-22 07:51] LABS: VITAMIN D,25-HYDROXY 25.7 ng/ml (30.0-100.0)
[2018-12-22] MEDS ORDERED: Non-Formulary Medication 1 Each (Ranitidine 150 MG) PO SCH (09:00)
[2018-12-22] MEDS ORDERED: cefTRIAXone 1 GM in Sodium Chloride 0.9% 100 ML IV SCH (09:00)
[2018-12-22] MEDS ORDERED: Furosemide 20 MG Tab PO SCH (09:00)
[2018-12-22] MEDS ORDERED: Allopurinol 300 MG Tab PO SCH (09:00)
[2018-12-22] MEDS ORDERED: Piperacillin/Tazobactam 4.5 GM in Sodium Chloride 0.9% 100 ML IV ONE (09:15)
[2018-12-22] MEDS: Cholecalciferol (Vitamin D3) 5,000 UNIT Tab PO SCH (09:26)
[2018-12-22] MEDS: Losartan 25 MG Tab PO SCH (09:30)
[2018-12-22] MEDS: amLODIPine 5 MG Tab PO SCH (09:30)
[2018-12-22] MEDS: Silodosin 8 MG PO SCH (09:31)
[2018-12-22] MEDS: Famotidine 20 MG Tab PO SCH ×2 (09:35→20:55)
[2018-12-22] MEDS ORDERED: HYDROmorphone 1 MG/ML Syringe IVPUSH PRN (10:56)
[2018-12-22] MEDS: oxyCODONE 5 MG Tab PO PRN ×2 (11:03→17:23)
--- NOTE | 2018-12-22 12:06 | US ---
Bilateral lower extremity deep venous ultrasound: Duplex and color flow imaging was obtained of the right and left common femoral, greater saphenous, superficial femoral, popliteal, posterior tibial and peroneal veins. Findings: Normal phasic flow, augmentation and compression are seen. Right inguinal lymph node is seen measuring 3.1 cm which is believed to be incidental. Impression: 1. No evidence of deep venous thrombosis within the right or left lower extremities. Diagnostic code #1
[2018-12-22] MEDS ORDERED: Sodium Chloride 0.9% 500 ML IV ONE (13:34)
[2018-12-22] MEDS ORDERED: Sodium Chloride 0.9% 10 ML Syringe FLUSH PRN (13:40)
[2018-12-22] MEDS ORDERED: Iopamidol 755 Mg/ML 100 ML Bottle IVPUSH ONE (13:40)
[2018-12-22] MEDS ORDERED: Sodium Chloride 0.9% 100 ML IV SCH (13:45)
--- NOTE | 2018-12-22 15:24 | CT ---
CT aortoiliac angiogram Technique: Multiple axial sections were obtained from the dome of the diaphragm inferiorly through the hips and proximal femurs. Findings: Aorta shows no aneurysm or dissection. No focal occlusion is seen. Normal enhancement of the superior mesenteric artery and celiac axis is seen. Inferior mesenteric artery is also patent. Slight atherosclerotic calcification is seen within the common iliac arteries. Internal and external iliac arteries are patent with no occlusion. Superficial femoral arteries are also widely patent into the knee. Profunda arteries are patent. Other findings: Minimal atelectasis is noted within both lung bases. Liver contains no focal abnormality. Gallbladder contains no calcified gallstones. Spleen appears within normal limits. Adrenal glands show no nodule. Pancreas appears within normal limits. Kidneys show symmetric contrast enhancement. Cyst is noted within the left kidney measuring 1.7 cm. No retroperitoneal adenopathy or mesenteric abnormalities are seen. Markedly enlarged prostate gland is again noted. No pelvic mass or adenopathy is seen. No inguinal adenopathy is seen. No soft tissue findings are seen within the upper aspects of the lower extremities. Bone window settings were reviewed which show no discrete fracture within the femur or pelvis. Slight vacuum phenomena is incidentally noted within the sacroiliac joints. Scattered degenerative change is noted throughout the spine with scoliosis. No free fluid or inflammatory change is seen within the abdomen or pelvis. Appendix is not definitely visualized. Situs inversus is noted. Impression: 1. Slight atherosclerotic calcification within the common iliac arteries. No aortoiliac dissection or occlusion. Branch vessels off the aorta also show no occlusion or focal stenosis. 2. Markedly enlarged prostate gland. 3. Degenerative change within the spine as well as vacuum phenomena within the sacroiliac joints. 4. 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
[2018-12-22] MEDS: Piperacillin/Tazobactam 4.5 GM in Sodium Chloride 0.9% 100 ML IV SCH (17:22)
[2018-12-22] MEDS ORDERED: Warfarin 5 MG Tab PO SCH (18:00)
[2018-12-22] MEDS: Finasteride 5 MG Tab PO SCH (20:55)
[2018-12-23] MEDS: Piperacillin/Tazobactam 4.5 GM in Sodium Chloride 0.9% 100 ML IV SCH ×2 (00:15→09:13)
[2018-12-23] MEDS: oxyCODONE 5 MG Tab PO PRN ×2 (02:42→10:49)
[2018-12-23] MEDS: Pantoprazole 40 MG Tab.CR PO SCH (06:19)
--- NOTE | 2018-12-23 08:20 | PCM.PN ---
- General Info Date of Service: 12/23/18 Admission Dx/Problem (Free Text): Admission Diagnosis/Problem Admission Diagnosis/Problem Urinary tract infection Subjective Update: patient states he continues to have lower abdominal, suprapubic pain that radiates into the hips. This has been going on since just before admission. He does state that he has no pain at rest and with movement. He is afebrile. Functional Status: Reports: Pain Controlled - Review of Systems General: Reports: No Symptoms. Denies: Fever HEENT: Reports: No Symptoms Pulmonary: Reports: No Symptoms. Denies: Shortness of Breath Cardiovascular: Reports: No Symptoms. Denies: Chest Pain Musculoskeletal: Reports: Other (suprapubic/inguinal pain) - Patient Data Vitals - Most Recent: Last Vital Signs Temp 98.7 F 12/23/18 04:00 Pulse 66 12/23/18 04:00 Resp 14 12/23/18 04:00 BP 101/58 L 12/23/18 04:00 Pulse Ox 95 12/23/18 04:00 Weight - Most Recent: 235 lb 8 oz I&O - Last 24 Hours: Intake & Output 12/22/18 12/23/18 12/23/18 22:59 06:59 14:59 Intake Total 1150 875 Output Total 300 Balance 850 875 Lab Results Last 24 Hours: Laboratory Results - last 24 hr 12/22/18 12/22/18 12/22/18 Range/Units 04:46 04:50 18:25 WBC (4.23-9.07) K/mm3 RBC (4.63-6.08) M/mm3 Hgb (13.7-17.5) gm/L Hct (40.1-51.0) % MCV (79.0-92.2) fl MCH (25.7-32.2) pg MCHC (32.2-35.5) g/dl RDW Std Deviation (35.1-43.9) fL Plt Count (163-337) K/mm3 MPV (9.4-12.3) fl Neut % (Auto) (34.0-67.9) % Lymph % (Auto) (21.8-53.1) % [place] % (Auto) (5.3-12.2) % Eos % (Auto) (0.8-7.0) Baso % (Auto) (0.1-1.2) % Neut # (Auto) (1.78-5.38) K/mm3 Lymph # (Auto) (1.32-3.57) K/mm3 [place] # (Auto) (0.30-0.82) K/mm3 Eos # (Auto) (0.04-0.54) K/mm3 Baso # (Auto) (0.01-0.08) K/mm3 Manual Slide Review PT 19.0 H (9.7-12.0) SECONDS INR 1.80 D-Dimer, Quantitative 0.93 H (0.19-0.50) mg/L Sodium (136-145) mEq/L Potassium (3.5-5.1) mEq/L Chloride (98-107) mEq/L Carbon Dioxide (21-32) mEq/L Anion Gap (5-15) BUN (7-18) mg/dL Creatinine (0.7-1.3) mg/dL Est Cr Clr Drug Dosing mL/min Estimated GFR (MDRD) (>60) mL/min BUN/Creatinine Ratio (14-18) Glucose (80-115) mg/dL Uric Acid 4.5 (3.5-7.2) mg/dL Calcium (8.5-10.1) mg/dL Magnesium (1.8-2.4) mg/dl C-Reactive Protein (<1.0) mg/dL 12/23/18 12/23/18 Range/Units 04:47 04:49 WBC 7.01 (4.23-9.07) K/mm3 RBC 5.47 (4.63-6.08) M/mm3 Hgb 14.2 (13.7-17.5) gm/L Hct 42.1 (40.1-51.0) % MCV 77.0 L (79.0-92.2) fl MCH 26.0 (25.7-32.2) pg MCHC 33.7 (32.2-35.5) g/dl RDW Std Deviation 43.2 (35.1-43.9) fL Plt Count 97 L (163-337) K/mm3 MPV 12.8 H (9.4-12.3) fl Neut % (Auto) 80.0 H (34.0-67.9) % Lymph % (Auto) 6.0 L (21.8-53.1) % [place] % (Auto) 13.3 H (5.3-12.2) % Eos % (Auto) 0.3 L (0.8-7.0) Baso % (Auto) 0.1 (0.1-1.2) % Neut # (Auto) 5.61 H (1.78-5.38) K/mm3 Lymph # (Auto) 0.42 L (1.32-3.57) K/mm3 [place] # (Auto) 0.93 H (0.30-0.82) K/mm3 Eos # (Auto) 0.02 L (0.04-0.54) K/mm3 Baso # (Auto) 0.01 (0.01-0.08) K/mm3 Manual Slide Review Abnormal smear PT (9.7-12.0) SECONDS INR D-Dimer, Quantitative (0.19-0.50) mg/L Sodium 135 L (136-145) mEq/L Potassium 3.4 L (3.5-5.1) mEq/L Chloride 101 (98-107) mEq/L Carbon Dioxide 25 (21-32) mEq/L Anion Gap 12.4 (5-15) BUN 17 (7-18) mg/dL Creatinine 1.0 (0.7-1.3) mg/dL Est Cr Clr Drug Dosing 72.20 mL/min Estimated GFR (MDRD) > 60 (>60) mL/min BUN/Creatinine Ratio 17.0 (14-18) Glucose 127 H (80-115) mg/dL Uric Acid (3.5-7.2) mg/dL Calcium 8.6 (8.5-10.1) mg/dL Magnesium 2.0 (1.8-2.4) mg/dl C-Reactive Protein 25.9 H* (<1.0) mg/dL Jose Antonio Results Last 24 Hours: Microbiology 12/21/18 16:15 Aerobic Blood Culture - Preliminary Blood - Venous - Lab Draw NO GROWTH AFTER 1 DAY Anaerobic Blood Culture - Preliminary NO GROWTH AFTER 1 DAY 12/21/18 16:00 Aerobic Blood Culture - Preliminary Blood - Venous NO GROWTH AFTER 1 DAY Anaerobic Blood Culture - Preliminary NO GROWTH AFTER 1 DAY 12/21/18 15:50 Urine Culture - Preliminary Urine, Voided Gram Negative Rods Med Orders - Current: Current Medications Acetaminophen (Tylenol) 650 mg PO Q4H PRN PRN Reason: Pain (Mild 1-3)/fever Hydrocodone Bitart/Acetaminophen ([place] 325-5 Mg) 1 tab PO Q4H PRN PRN Reason: Pain (moderate 4-6) Last Admin: 12/22/18 22:36 Dose: 1 tab Albuterol/Ipratropium (Duoneb 3.0-0.5 Mg/3 Ml) 3 ml NEB Q4H PRN PRN Reason: Shortness Of Breath/wheezing Allopurinol (Zyloprim) 300 mg PO DAILY [facility] Amlodipine Besylate (Norvasc) 5 mg PO DAILY [facility] Last Admin: 12/22/18 09:30 Dose: Not Given Bisacodyl (Dulcolax) 5 mg PO DAILY PRN PRN Reason: Constipation Cholecalciferol (Vitamin D3) 5,000 unit PO DAILY [facility] Last Admin: 12/22/18 09:26 Dose: 5,000 unit Docusate Sodium (Colace) 100 mg PO BID PRN PRN Reason: Constipation Last Admin: 12/22/18 22:37 Dose: 100 mg Famotidine (Pepcid) 20 mg PO BID [facility] Last Admin: 12/22/18 20:55 Dose: 20 mg Finasteride (Proscar) 5 mg PO BEDTIME [facility] Last Admin: 12/22/18 20:55 Dose: 5 mg Furosemide (Lasix) 20 mg PO DAILY [facility] Hydralazine HCl (Apresoline) 20 mg IVPUSH Q4H PRN PRN Reason: Hypertension Hydromorphone HCl (Dilaudid) 1 mg IVPUSH Q2H PRN PRN Reason: Pain Promethazine HCl 6.25 mg/ (Sodium Chloride) 50.25 mls @ 100 mls/hr IV Q6H PRN PRN Reason: Nausea/Vomiting Piperacillin Sod/Tazobactam (Sod 4.5 gm/ Sodium Chloride) 100 mls @ 25 mls/hr IV Q8H [facility] Last Admin: 12/23/18 00:15 Dose: 25 mls/hr Lorazepam (Ativan) 0.25 mg IV Q6H PRN PRN Reason: Anxiety Losartan Potassium (Cozaar) 25 mg PO DAILY [facility] Last Admin: 12/22/18 09:30 Dose: Not Given Metoprolol Tartrate (Lopressor) 5 mg IVPUSH Q4H PRN PRN Reason: Tachycardia Ondansetron HCl (Zofran) 4 mg IV Q6H PRN PRN Reason: Nausea/Vomiting Oxycodone HCl (Oxycodone) 5 mg PO Q6H PRN PRN Reason: Pain Last Admin: 12/23/18 02:42 Dose: 5 mg Pantoprazole Sodium (Protonix) 40 mg PO ACBREAKFAST@0700 [facility] Last Admin: 12/23/18 06:19 Dose: 40 mg Silodosin 8 Mg 0 each PO DAILY [facility] Last Admin: 12/22/18 09:31 Dose: Not Given Polyethylene Glycol (Miralax) 17 gm PO DAILY PRN PRN Reason: Constipation Senna/Docusate Sodium (Senna Plus) 1 tab PO BID PRN PRN Reason: Constipation Sodium Chloride (Saline Flush) 10 ml FLUSH ASDIRECTED PRN PRN Reason: Keep Vein Open Last Admin: 12/21/18 16:05 Dose: 10 ml Temazepam (Restoril) 7.5 mg PO BEDTIME PRN PRN Reason: Sleep Warfarin Sodium (Coumadin) 5 mg PO DAILY@1800 [facility] Last Admin: 12/22/18 17:23 Dose: 5 mg Warfarin Sodium (Pharmacy To Dose - Warfarin) 0 dose .XX ASDIRECTED PRN PRN Reason: RX TO DOSE WARFARIN Discontinued Medications Allopurinol (Zyloprim) 300 mg PO DAILY [facility] Last Admin: 12/22/18 09:25 Dose: 300 mg Clonidine HCl (Catapres) 0.1 mg PO ONETIME ONE Stop: 12/21/18 21:26 Last Admin: 12/21/18 22:53 Dose: 0.1 mg Colchicine (Colcrys) 0.6 mg PO QID PRN PRN Reason: Other Finasteride (Proscar) 5 mg PO NOW STA Stop: 12/21/18 21:26 Last Admin: 12/21/18 22:55 Dose: 5 mg Furosemide (Lasix) 20 mg PO DAILY [facility] Last Admin: 12/22/18 09:30 Dose: Not Given Hydromorphone HCl (Dilaudid) 1 mg IVPUSH ONETIME ONE Stop: 12/21/18 15:50 Last Admin: 12/21/18 16:13 Dose: 1 mg Hydromorphone HCl (Dilaudid) 0.5 mg IVPUSH Q2H PRN PRN Reason: Pain (severe 7-10) Last Admin: 12/22/18 09:21 Dose: 0.5 mg Sodium Chloride (Normal Saline) 1,000 mls @ 999 mls/hr IV ONETIME ONE Stop: 12/21/18 16:49 Last Admin: 12/21/18 16:15 Dose: 999 mls/hr Sodium Chloride (Normal Saline) 1,000 mls @ 999 mls/hr IV ONETIME ONE Stop: 12/21/18 17:53 Last Admin: 12/21/18 17:15 Dose: 999 mls/hr Ceftriaxone Sodium 2 gm/ (Sodium Chloride) 100 mls @ 200 mls/hr IV NOW STA Stop: 12/21/18 17:53 Last Admin: 12/21/18 17:37 Dose: 200 mls/hr Ceftriaxone Sodium 1 gm/ (Sodium Chloride) 100 mls @ 200 mls/hr IV Q24H [facility] Last Admin: 12/22/18 09:10 Dose: Not Given Piperacillin Sod/Tazobactam (Sod 4.5 gm/ Sodium Chloride) 100 mls @ 200 mls/hr IV ONETIME ONE Stop: 12/22/18 09:44 Last Admin: 12/22/18 09:27 Dose: 200 mls/hr Sodium Chloride (Normal Saline) 500 mls @ 999 mls/hr IV .BOLUS ONE Stop: 12/22/18 14:04 Last Admin: 12/22/18 13:43 Dose: 999 mls/hr Sodium Chloride (Normal Saline) 100 mls @ 75 mls/hr IV ASDIRECTED [facility] Stop: 12/22/18 16:00 Last Admin: 12/22/18 14:18 Dose: 75 mls/hr Iopamidol (Isovue-370 (76%)) 100 ml IVPUSH ONETIME ONE Stop: 12/22/18 13:41 Last Admin: 12/22/18 14:18 Dose: 100 ml Non-Formulary Medication (Telmisartan/Hydrochlorothiazid [Telmisartan-Hctz 80- 12.5 Mg Tb]) 1 tab PO DAILY [facility] Ondansetron HCl (Zofran) 4 mg IVPUSH ONETIME ONE Stop: 12/21/18 15:50 Last Admin: 12/21/18 16:11 Dose: 4 mg Sodium Chloride (Saline Flush) 10 ml FLUSH ONETIME PRN PRN Reason: IV FLUSH Stop: 12/22/18 16:00 Last Admin: 12/22/18 14:18 Dose: 10 ml Warfarin Sodium (Coumadin) 10 mg PO ONETIME ONE Stop: 12/21/18 21:18 Last Admin: 12/22/18 08:55 Dose: Not Given Warfarin Sodium (Coumadin) 5 mg PO ONETIME ONE Stop: 12/21/18 21:18 Last Admin: 12/21/18 22:51 Dose: 5 mg - Exam Quality Assessment: No: Supplemental Oxygen General: Alert, Oriented HEENT: Pupils Equal, Pupils Reactive Neck: Supple Lungs: Clear to Auscultation, Normal Respiratory Effort Cardiovascular: Regular Rate, Regular Rhythm GI/Abdominal Exam: Normal Bowel Sounds, Soft, Tender (tenderness to palpation along the pannus of his suprapubic and bilateral inguinal area.) - Problem List Review Problem List Initiated/Reviewed/Updated: Yes - Plan Plan:: Assessment: Acute: UTI/parostitis - pansensitive Escherichia coli - 2/2 recent indwelling catheter use - Has urinary retention from markedly enlarged prostate - UA shows hematuria and bacteruria--> GNR - Suprapubic pain with radiation to his left groin - Afebrile and with mild leukocytosis in ED - Ancef 1 g every 8 hours for another 24-48 hours then switch to by mouth Urinary Retention - 2/2 Markedly Enlarged Prostate - Recently had guerrero catheter for it - He is able to void now per family - Bladder scan showed 46 ml of retained urine - He is on Silodosin for maintenance medication - Add 5-AR Inhibitor - Urology eval after discharge Abductor muscle strain bilaterally - MRI shows: 1. Diffuse edema within the abductor muscle groups on both sides , worse on the right side. Findings presumably due to previous trauma with partial muscle tearing. Infection is also a possibility, but seems unlikely without any more superficial edema being seen. 2. Markedly enlarged prostate gland. 3. Degenerative change is partially visualized within the lumbar spine. Class II Obese - BMI of 35.9 - Advised LSM - Dietary consult for weight management 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 - INR of 1.68-->1.80 --> 2.8 - He takes 5 mg po daily at home - Pharmacy to dose warfarin starting today Left Groin Pain with Generalized Weakness - Suspect 2/2 Arthritic Changes - No back pain, numbness or tingling to bilateral lower extremities - Reviewed Abdominal/Pelvis CT scan report: shows diffuse disc space narrowing and endplate osteophytes within the spine. Nothing acute is appreciated - U/S shows no blood clot - Uric Acid level is wnl - Originally ordered abdominal/pelvis/hip MRI but after discussing it with Dr. Cazares, he recommended Abdominal/Pelvis CTA - Abdominal/Pelvis CTA report: Slight atherosclerotic calcification within the common iliac arteries. No aorto-iliac dissection or occlusion. Branch vessels off the aorta also show no occlusion or focal stenosis. Degenerative change within the spine as well as vacuum phenomena within the sacroiliac joints - Lumbar x-ray done on 10/31/2018: Scoliosis as well as diffuse degenerative change - Pain with adduction, abduction, interna/external rotation, straight leg raise and flexion motion - Symptom may improve with weight loss - PRN pain medications, muscle relaxant, as well as PT/OT - If no response, consider ortho consult in AM Resolved: S/p Lactic Acidosis - 2/2 Infection - Received 2L of NS in ED - Repeat LA S/p Accelerated/Malignant HTN - Carries a hx/o HTN - BP of 141/120 mmHg - He takes ARB/HCT combo for maintenance medications - Clonidine po x1 and PRN IV Hydralazine for BP > 150/90 mmHg - Losartan 25 mg po daily, Lasix 20 mg po daily and Norvasc 5 mg po daily for inpatient maintenance medications Chronic: Cataract, Hx/o Blood Clot, HTN, Dextrocardia, GERD, BPH, Gout, Polycythemia, and Obesity Plan: Admit to [facility] Resume Home Meds except HCTZ due to Gout Routine AM Labs Regular Diet Dietary consult for Gout Diet and Weight Management Daily INR PT/OT eval Need urology eval after discharge SW/CM for d/c planning Code status: full Additional orders as above
[2018-12-23] MEDS: Acetaminophen/HYDROcodone 325-5 MG Tab PO PRN ×3 (09:13→21:04)
[2018-12-23] MEDS: Famotidine 20 MG Tab PO SCH ×2 (09:14→21:04)
[2018-12-23] MEDS: Cholecalciferol (Vitamin D3) 5,000 UNIT Tab PO SCH (09:14)
[2018-12-23] MEDS: Silodosin 8 MG PO SCH ×2 (09:15→17:51)
[2018-12-23] MEDS: Losartan 25 MG Tab PO SCH (09:25)
[2018-12-23] MEDS: amLODIPine 5 MG Tab PO SCH (09:26)
[2018-12-23] MEDS ORDERED: Sodium Chloride 0.9% 10 ML Syringe FLUSH PRN (11:56)
[2018-12-23] MEDS ORDERED: Gadobenate Dimeglumine 529 MG/ML 20 ML SDV IVPUSH ONE (11:56)
--- NOTE | 2018-12-23 13:21 | MR ---
MRI pelvis (without and with intravenous contrast) Technique: T1, T2 fat-suppressed axial semi-: T2 fat-suppressed, T2 inversion recovery, T2 and T1-weighted coronal; T2-weighted sagittal; post-gadolinium T1 fat-suppressed axial, coronal and sagittal images were obtained. Findings: Diffuse edema is identified within the abductor muscle groups on both sides, worse on the right side. Findings presumably are due to previous trauma with partial muscle tearing. Markedly enlarged prostate gland is noted. No bone marrow edema is seen. No low signal fracture line is seen within the hips or pelvis. Degenerative change is partially visualized within the lumbar spine. No abnormal enhancement is seen. Impression: 1. Diffuse edema within the abductor muscle groups on both sides, worse on the right side. As mentioned above, findings presumably due to previous trauma with partial muscle tearing. Infection is also a possibility but seems unlikely without any more superficial edema being seen. 2. Markedly enlarged prostate gland. 3. Degenerative change is partially visualized within the lumbar spine. Diagnostic code #3
[2018-12-23] MEDS ORDERED: Furosemide 40 MG Tab PO ONE (15:00)
[2018-12-23] MEDS ORDERED: Potassium Chloride 20 MEQ Tab.ER PO ONE (16:18)
[2018-12-23] MEDS ORDERED: Warfarin Sliding Scale PO SCH (18:00)
[2018-12-23] MEDS: ceFAZolin 1 GM in Premix Bag 1 BAG IV SCH (21:03)
[2018-12-23] MEDS: Finasteride 5 MG Tab PO SCH (21:04)
[2018-12-24] MEDS ORDERED: Bisacodyl 10 MG Supp RECTAL ONE (03:39)
[2018-12-24] MEDS: Acetaminophen/HYDROcodone 325-5 MG Tab PO PRN ×2 (04:12→15:27)
[2018-12-24] MEDS: Pantoprazole 40 MG Tab.CR PO SCH (06:45)
[2018-12-24] MEDS: ceFAZolin 1 GM in Premix Bag 1 BAG IV SCH ×3 (06:45→21:03)
[2018-12-24] MEDS: amLODIPine 5 MG Tab PO SCH (09:07)
[2018-12-24] MEDS: Losartan 25 MG Tab PO SCH (09:07)
[2018-12-24] MEDS: Cholecalciferol (Vitamin D3) 5,000 UNIT Tab PO SCH (09:07)
[2018-12-24] MEDS: Famotidine 20 MG Tab PO SCH (09:07)
[2018-12-24] MEDS ORDERED: Ketorolac 30 MG/ML SDV IM ONE (09:24)
[2018-12-24] MEDS: Cyclobenzaprine 10 MG Tab PO PRN ×2 (10:53→20:51)
[2018-12-24] MEDS ORDERED: Belladonna Alkaloids/Opium 16.2-30 MG Supp RECTAL PRN (12:17)
--- NOTE | 2018-12-24 13:34 | PCM.PN ---
- General Info Date of Service: 12/24/18 Admission Dx/Problem (Free Text): Admission Diagnosis/Problem Admission Diagnosis/Problem Urinary tract infection Subjective Update: patient continues to have severe suprapubic and inguinal pain. MRI showed possible partial tear of the abductor muscle groups on both sides, worse on the right side. It is presumed from previous trauma with partial muscle tearing, but patient denies any trauma. Infection is also a possibility, but seems unlikely without any more superficial edema being seen. patient's pain corresponds to the abductor muscles and he has increasing pain with abduction and abduction of his hips. C-reactive protein did come down slightly and he continues to have a normal white count. He is afebrile. Patient was switched to Ancef last night after cultures grew out Escherichia coli that is pansensitive. - Review of Systems General: Denies: Fever HEENT: Reports: No Symptoms Pulmonary: Reports: No Symptoms Cardiovascular: Reports: No Symptoms Gastrointestinal: Reports: No Symptoms Genitourinary: Denies: Dysuria, Frequency, Burning Musculoskeletal: Reports: Leg Pain - Patient Data Vitals - Most Recent: Last Vital Signs Temp 98.1 F 12/24/18 02:33 Pulse 64 12/24/18 02:33 Resp 14 12/24/18 02:33 BP 120/77 12/24/18 09:07 Pulse Ox 96 12/24/18 02:33 Weight - Most Recent: 236 lb 8 oz I&O - Last 24 Hours: Intake & Output 12/23/18 12/24/18 12/24/18 22:59 06:59 14:59 Intake Total 900 600 Output Total 200 590 Balance 700 10 Lab Results Last 24 Hours: Laboratory Results - last 24 hr 12/24/18 12/24/18 12/24/18 Range/Units 05:55 05:55 05:55 WBC 6.66 (4.23-9.07) K/mm3 RBC 5.66 (4.63-6.08) M/mm3 Hgb 14.5 (13.7-17.5) gm/L Hct 43.2 (40.1-51.0) % MCV 76.3 L (79.0-92.2) fl MCH 25.6 L (25.7-32.2) pg MCHC 33.6 (32.2-35.5) g/dl RDW Std Deviation 43.8 (35.1-43.9) fL Plt Count 121 L (163-337) K/mm3 MPV 13.1 H (9.4-12.3) fl Neut % (Auto) 74.1 H (34.0-67.9) % Lymph % (Auto) 11.7 L (21.8-53.1) % [place] % (Auto) 12.0 (5.3-12.2) % Eos % (Auto) 1.2 (0.8-7.0) Baso % (Auto) 0.5 (0.1-1.2) % Neut # (Auto) 4.94 (1.78-5.38) K/mm3 Lymph # (Auto) 0.78 L (1.32-3.57) K/mm3 [place] # (Auto) 0.80 (0.30-0.82) K/mm3 Eos # (Auto) 0.08 (0.04-0.54) K/mm3 Baso # (Auto) 0.03 (0.01-0.08) K/mm3 PT 32.2 H (9.7-12.0) SECONDS INR 3.15 Sodium 136 (136-145) mEq/L Potassium 3.7 (3.5-5.1) mEq/L Chloride 100 (98-107) mEq/L Carbon Dioxide 25 (21-32) mEq/L Anion Gap 14.7 (5-15) BUN 15 (7-18) mg/dL Creatinine 0.8 (0.7-1.3) mg/dL Est Cr Clr Drug Dosing 90.25 mL/min Estimated GFR (MDRD) > 60 (>60) mL/min BUN/Creatinine Ratio 18.8 H (14-18) Glucose 134 H (80-115) mg/dL Calcium 8.9 (8.5-10.1) mg/dL Magnesium 1.9 (1.8-2.4) mg/dl C-Reactive Protein 24.7 H* (<1.0) mg/dL Jose Antonio Results Last 24 Hours: Microbiology 12/21/18 16:15 Aerobic Blood Culture - Preliminary Blood - Venous - Lab Draw NO GROWTH AFTER 2 DAYS Anaerobic Blood Culture - Preliminary NO GROWTH AFTER 2 DAYS 12/21/18 16:00 Aerobic Blood Culture - Preliminary Blood - Venous NO GROWTH AFTER 2 DAYS Anaerobic Blood Culture - Preliminary NO GROWTH AFTER 2 DAYS 12/21/18 15:50 Urine Culture - Final Urine, Voided Escherichia Coli Med Orders - Current: Current Medications Acetaminophen (Tylenol) 650 mg PO Q4H PRN PRN Reason: Pain (Mild 1-3)/fever Hydrocodone Bitart/Acetaminophen ([place] 325-5 Mg) 1 tab PO Q4H PRN PRN Reason: Pain (moderate 4-6) Last Admin: 12/24/18 04:12 Dose: 1 tab Albuterol/Ipratropium (Duoneb 3.0-0.5 Mg/3 Ml) 3 ml NEB Q4H PRN PRN Reason: Shortness Of Breath/wheezing Allopurinol (Zyloprim) 300 mg PO DAILY [facility] Bisacodyl (Dulcolax) 5 mg PO DAILY PRN PRN Reason: Constipation Last Admin: 12/23/18 09:25 Dose: 5 mg Cholecalciferol (Vitamin D3) 5,000 unit PO DAILY [facility] Last Admin: 12/24/18 09:07 Dose: 5,000 unit Cyclobenzaprine HCl (Flexeril) 10 mg PO TID PRN PRN Reason: Muscle Spasm Last Admin: 12/24/18 10:53 Dose: 10 mg Docusate Sodium (Colace) 100 mg PO BID PRN PRN Reason: Constipation Last Admin: 12/22/18 22:37 Dose: 100 mg Finasteride (Proscar) 5 mg PO BEDTIME [facility] Last Admin: 12/23/18 21:04 Dose: 5 mg Hydralazine HCl (Apresoline) 20 mg IVPUSH Q4H PRN PRN Reason: Hypertension Hydromorphone HCl (Dilaudid) 1 mg IVPUSH Q2H PRN PRN Reason: Pain Promethazine HCl 6.25 mg/ (Sodium Chloride) 50.25 mls @ 100 mls/hr IV Q6H PRN PRN Reason: Nausea/Vomiting Cefazolin Sodium/Dextrose 1 gm (/ Premix) 50 mls @ 100 mls/hr IV Q8HR [facility] Last Admin: 12/24/18 06:45 Dose: 100 mls/hr Lorazepam (Ativan) 0.25 mg IV Q6H PRN PRN Reason: Anxiety Losartan Potassium (Cozaar) 25 mg PO DAILY [facility] Last Admin: 12/24/18 09:07 Dose: 25 mg Metoprolol Tartrate (Lopressor) 5 mg IVPUSH Q4H PRN PRN Reason: Tachycardia Ondansetron HCl (Zofran) 4 mg IV Q6H PRN PRN Reason: Nausea/Vomiting Oxycodone HCl (Oxycodone) 5 mg PO Q6H PRN PRN Reason: Pain Last Admin: 12/23/18 10:49 Dose: 5 mg Pantoprazole Sodium (Protonix) 40 mg PO ACBREAKFAST@0700 [facility] Last Admin: 12/24/18 06:45 Dose: 40 mg Silodosin 8 Mg 0 each PO DAILY@1800 [facility] Last Admin: 12/23/18 17:51 Dose: 1 each Polyethylene Glycol (Miralax) 17 gm PO DAILY PRN PRN Reason: Constipation Last Admin: 12/23/18 21:05 Dose: 17 gm Senna/Docusate Sodium (Senna Plus) 1 tab PO BID PRN PRN Reason: Constipation Sodium Chloride (Saline Flush) 10 ml FLUSH ASDIRECTED PRN PRN Reason: Keep Vein Open Last Admin: 12/21/18 16:05 Dose: 10 ml Temazepam (Restoril) 7.5 mg PO BEDTIME PRN PRN Reason: Sleep Warfarin Sodium (Pharmacy To Dose - Warfarin) 0 dose .XX ASDIRECTED PRN PRN Reason: RX TO DOSE WARFARIN Warfarin Sodium (Coumadin Sliding Scale) 0 each PO QPM [facility] Stop: 12/24/18 18:01 Discontinued Medications Allopurinol (Zyloprim) 300 mg PO DAILY [facility] Last Admin: 12/22/18 09:25 Dose: 300 mg Amlodipine Besylate (Norvasc) 5 mg PO DAILY [facility] Last Admin: 12/24/18 09:07 Dose: 5 mg Belladonna Alkaloids/Opium (B & O Supprettes No. 15a) 1 supp RECTAL Q6H PRN PRN Reason: bladder spasm Bisacodyl (Dulcolax) 10 mg RECTAL ONETIME ONE Stop: 12/24/18 03:40 Last Admin: 12/24/18 04:47 Dose: 10 mg Clonidine HCl (Catapres) 0.1 mg PO ONETIME ONE Stop: 12/21/18 21:26 Last Admin: 12/21/18 22:53 Dose: 0.1 mg Colchicine (Colcrys) 0.6 mg PO QID PRN PRN Reason: Other Famotidine (Pepcid) 20 mg PO BID [facility] Last Admin: 12/24/18 09:07 Dose: 20 mg Finasteride (Proscar) 5 mg PO NOW STA Stop: 12/21/18 21:26 Last Admin: 12/21/18 22:55 Dose: 5 mg Furosemide (Lasix) 20 mg PO DAILY [facility] Last Admin: 12/22/18 09:30 Dose: Not Given Furosemide (Lasix) 20 mg PO DAILY [facility] Furosemide (Lasix) 40 mg PO ONETIME ONE Stop: 12/23/18 15:01 Last Admin: 12/23/18 15:33 Dose: 40 mg Gadobenate Dimeglumine (Multihance) 20 ml IVPUSH ONETIME ONE Stop: 12/23/18 11:57 Last Admin: 12/23/18 12:12 Dose: 20 ml Hydromorphone HCl (Dilaudid) 1 mg IVPUSH ONETIME ONE Stop: 12/21/18 15:50 Last Admin: 12/21/18 16:13 Dose: 1 mg Hydromorphone HCl (Dilaudid) 0.5 mg IVPUSH Q2H PRN PRN Reason: Pain (severe 7-10) Last Admin: 12/22/18 09:21 Dose: 0.5 mg Sodium Chloride (Normal Saline) 1,000 mls @ 999 mls/hr IV ONETIME ONE Stop: 12/21/18 16:49 Last Admin: 12/21/18 16:15 Dose: 999 mls/hr Sodium Chloride (Normal Saline) 1,000 mls @ 999 mls/hr IV ONETIME ONE Stop: 12/21/18 17:53 Last Admin: 12/21/18 17:15 Dose: 999 mls/hr Ceftriaxone Sodium 2 gm/ (Sodium Chloride) 100 mls @ 200 mls/hr IV NOW STA Stop: 12/21/18 17:53 Last Admin: 12/21/18 17:37 Dose: 200 mls/hr Ceftriaxone Sodium 1 gm/ (Sodium Chloride) 100 mls @ 200 mls/hr IV Q24H [facility] Last Admin: 12/22/18 09:10 Dose: Not Given Piperacillin Sod/Tazobactam (Sod 4.5 gm/ Sodium Chloride) 100 mls @ 200 mls/hr IV ONETIME ONE Stop: 12/22/18 09:44 Last Admin: 12/22/18 09:27 Dose: 200 mls/hr Piperacillin Sod/Tazobactam (Sod 4.5 gm/ Sodium Chloride) 100 mls @ 25 mls/hr IV Q8H [facility] Last Admin: 12/23/18 09:13 Dose: 25 mls/hr Sodium Chloride (Normal Saline) 500 mls @ 999 mls/hr IV .BOLUS ONE Stop: 12/22/18 14:04 Last Admin: 12/22/18 13:43 Dose: 999 mls/hr Sodium Chloride (Normal Saline) 100 mls @ 75 mls/hr IV ASDIRECTED [facility] Stop: 12/22/18 16:00 Last Admin: 12/22/18 14:18 Dose: 75 mls/hr Iopamidol (Isovue-370 (76%)) 100 ml IVPUSH ONETIME ONE Stop: 12/22/18 13:41 Last Admin: 12/22/18 14:18 Dose: 100 ml Ketorolac Tromethamine (Toradol) 30 mg IM ONETIME ONE Stop: 12/24/18 09:25 Last Admin: 12/24/18 12:03 Dose: Not Given Non-Formulary Medication (Telmisartan/Hydrochlorothiazid [Telmisartan-Hctz 80- 12.5 Mg Tb]) 1 tab PO DAILY [facility] Ondansetron HCl (Zofran) 4 mg IVPUSH ONETIME ONE Stop: 12/21/18 15:50 Last Admin: 12/21/18 16:11 Dose: 4 mg Silodosin 8 Mg 0 each PO DAILY [facility] Last Admin: 12/23/18 09:15 Dose: Not Given Potassium Chloride (Klor-Con M20) 40 meq PO ONETIME ONE Stop: 12/23/18 16:19 Last Admin: 12/23/18 16:28 Dose: 40 meq Sodium Chloride (Saline Flush) 10 ml FLUSH ONETIME PRN PRN Reason: IV FLUSH Stop: 12/22/18 16:00 Last Admin: 12/22/18 14:18 Dose: 10 ml Sodium Chloride (Saline Flush) 10 ml FLUSH ONETIME PRN PRN Reason: IV FLUSH Stop: 12/23/18 13:00 Last Admin: 12/23/18 12:12 Dose: 10 ml Warfarin Sodium (Coumadin) 5 mg PO DAILY@1800 [facility] Last Admin: 12/22/18 17:23 Dose: 5 mg Warfarin Sodium (Coumadin) 10 mg PO ONETIME ONE Stop: 12/21/18 21:18 Last Admin: 12/22/18 08:55 Dose: Not Given Warfarin Sodium (Coumadin) 5 mg PO ONETIME ONE Stop: 12/21/18 21:18 Last Admin: 12/21/18 22:51 Dose: 5 mg Warfarin Sodium (Coumadin Sliding Scale) 0 each PO QPM [facility] Stop: 12/23/18 18:01 Last Admin: 12/23/18 19:06 Dose: Not Given - Exam Quality Assessment: No: Supplemental Oxygen General: Alert, Oriented HEENT: Pupils Equal Neck: Supple Lungs: Clear to Auscultation, Normal Respiratory Effort Cardiovascular: Regular Rate, Regular Rhythm GI/Abdominal Exam: Normal Bowel Sounds, Soft, No Organomegaly, Tender ( suprapubic tenderness without any signs of erythema or induration.) Extremities: Other (tenderness along the abductors without any erythema or induration.) Skin: Warm, Dry, Intact Neurological: No New Focal Deficit Psy/Mental Status: Alert, Normal Affect, Normal Mood - Problem List Review Problem List Initiated/Reviewed/Updated: Yes - My Orders Last 24 Hours: My Active Orders 12/23/18 22:00 ceFAZolin [Ancef] 1 gm Premix Bag 1 bag IV Q8HR 12/24/18 10:06 Cyclobenzaprine [Flexeril] 10 mg PO TID PRN 12/24/18 18:00 Warfarin Sliding Scale [Coumadin Sliding Scale] 0 each PO QPM - Plan Plan:: Assessment: Acute: UTI/parostitis - pansensitive Escherichia coli - 2/2 recent indwelling catheter use - Has urinary retention from markedly enlarged prostate - UA shows hematuria and bacteruria--> GNR - Suprapubic pain with radiation to his left groin - Afebrile and with mild leukocytosis in ED - Ancef 1 g every 8 hours for another 24-48 hours then switch to by mouth Urinary Retention - 2/2 Markedly Enlarged Prostate - Recently had guerrero catheter for it - He is able to void now per family - Bladder scan showed 46 ml of retained urine - He is on Silodosin for maintenance medication - Add 5-AR Inhibitor - Urology eval after discharge Abductor muscle strain bilaterally - MRI shows: 1. Diffuse edema within the abductor muscle groups on both sides , worse on the right side. Findings presumably due to previous trauma with partial muscle tearing. Infection is also a possibility, but seems unlikely without any more superficial edema being seen. 2. Markedly enlarged prostate gland. 3. Degenerative change is partially visualized within the lumbar spine. - MRI is consistent with patient's symptoms. Pain has worsened and we do not have physical therapy available. C-reactive protein did increase slightly coming down at 24.7 from 25.9. At this point, we will continue with Ancef and see if there is any improvement. - Trial of Flexeril 10 mg. Patient states it did not help his pain. 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 Nothing acute is appreciated - U/S shows no blood clot - Uric Acid level is wnl - Originally ordered abdominal/pelvis/hip MRI but after discussing it with Dr. Cazares, he recommended Abdominal/Pelvis CTA - Abdominal/Pelvis CTA report: Slight atherosclerotic calcification within the common iliac arteries. No aorto-iliac dissection or occlusion. Branch vessels off the aorta also show no occlusion or focal stenosis. Degenerative change within the spine as well as vacuum phenomena within the sacroiliac joints - Lumbar x-ray done on 10/31/2018: Scoliosis as well as diffuse degenerative change - Pain with adduction, abduction, interna/external rotation, straight leg raise and flexion motion - Symptom may improve with weight loss - PRN pain medications, muscle relaxant, as well as PT/OT - If no response, consider ortho consult in AM Resolved: S/p Lactic Acidosis - 2/2 Infection - Received 2L of NS in ED - Repeat LA S/p Accelerated/Malignant HTN - Carries a hx/o HTN - BP of 141/120 mmHg - He takes ARB/HCT combo for maintenance medications - Clonidine po x1 and PRN IV Hydralazine for BP > 150/90 mmHg - Losartan 25 mg po daily and Norvasc 5 mg po daily for inpatient maintenance medications Chronic: Cataract, Hx/o Blood Clot, HTN, Dextrocardia, GERD, BPH, Gout, Polycythemia, and Obesity Plan: Admit to [facility] Resume Home Meds except HCTZ due to Gout Routine AM Labs Regular Diet Dietary consult for Gout Diet and Weight Management Daily INR PT/OT eval Need urology eval after discharge SW/CM for d/c planning Code status: full Additional orders as above
[2018-12-24] MEDS ORDERED: Warfarin Sliding Scale PO SCH (18:00)
[2018-12-24] MEDS: Silodosin 8 MG PO SCH (18:55)
[2018-12-24] MEDS: Finasteride 5 MG Tab PO SCH (20:50)
[2018-12-25] MEDS: ceFAZolin 1 GM in Premix Bag 1 BAG IV SCH ×3 (06:00→21:20)
[2018-12-25] MEDS: Acetaminophen/HYDROcodone 325-5 MG Tab PO PRN ×3 (06:01→20:18)
[2018-12-25] MEDS: Pantoprazole 40 MG Tab.CR PO SCH (06:02)
[2018-12-25] MEDS ORDERED: Furosemide 20 MG Tab PO SCH (09:00)
[2018-12-25] MEDS: oxyCODONE 5 MG Tab PO PRN (09:22)
[2018-12-25] MEDS: Losartan 25 MG Tab PO SCH (09:22)
[2018-12-25] MEDS: Cholecalciferol (Vitamin D3) 5,000 UNIT Tab PO SCH (09:22)
[2018-12-25] MEDS: Allopurinol 300 MG Tab PO SCH (09:23)
[2018-12-25] MEDS: Cyclobenzaprine 10 MG Tab PO PRN (11:00)
--- NOTE | 2018-12-25 13:51 | PCM.PN ---
- General Info Date of Service: 12/25/18 Admission Dx/Problem (Free Text): Admission Diagnosis/Problem Admission Diagnosis/Problem Urinary tract infection Subjective Update: pain has significantly improved. He is afebrile. He did have one blood culture grow out gram-negative rods at 90 hours. Functional Status: Reports: Pain Controlled - Review of Systems General: Reports: No Symptoms HEENT: Reports: No Symptoms Pulmonary: Reports: No Symptoms Cardiovascular: Reports: No Symptoms Gastrointestinal: Reports: No Symptoms Genitourinary: Reports: No Symptoms - Patient Data Vitals - Most Recent: Last Vital Signs Temp 97.9 F 12/25/18 07:37 Pulse 70 12/25/18 07:37 Resp 16 12/25/18 07:37 BP 118/91 H 12/25/18 09:22 Pulse Ox 98 12/25/18 07:37 Weight - Most Recent: 236 lb 6.4 oz I&O - Last 24 Hours: Intake & Output 12/24/18 12/25/18 12/25/18 22:59 06:59 14:59 Intake Total 850 250 Output Total 550 300 Balance 300 -50 Lab Results Last 24 Hours: Laboratory Results - last 24 hr 12/25/18 12/25/18 12/25/18 Range/Units 05:11 05:11 05:11 WBC 9.75 H (4.23-9.07) K/mm3 RBC 5.55 (4.63-6.08) M/mm3 Hgb 14.2 (13.7-17.5) gm/L Hct 42.2 (40.1-51.0) % MCV 76.0 L (79.0-92.2) fl MCH 25.6 L (25.7-32.2) pg MCHC 33.6 (32.2-35.5) g/dl RDW Std Deviation 43.5 (35.1-43.9) fL Plt Count 161 L (163-337) K/mm3 MPV 12.6 H (9.4-12.3) fl Neut % (Auto) 77.7 H (34.0-67.9) % Lymph % (Auto) 11.3 L (21.8-53.1) % [place] % (Auto) 9.0 (5.3-12.2) % Eos % (Auto) 0.6 L (0.8-7.0) Baso % (Auto) 0.4 (0.1-1.2) % Neut # (Auto) 7.57 H (1.78-5.38) K/mm3 Lymph # (Auto) 1.10 L (1.32-3.57) K/mm3 [place] # (Auto) 0.88 H (0.30-0.82) K/mm3 Eos # (Auto) 0.06 (0.04-0.54) K/mm3 Baso # (Auto) 0.04 (0.01-0.08) K/mm3 Manual Slide Review Abnormal smear PT 22.3 H D (9.7-12.0) SECONDS INR 2.14 Sodium 136 (136-145) mEq/L Potassium 3.8 (3.5-5.1) mEq/L Chloride 102 (98-107) mEq/L Carbon Dioxide 26 (21-32) mEq/L Anion Gap 11.8 (5-15) BUN 14 (7-18) mg/dL Creatinine 0.8 (0.7-1.3) mg/dL Est Cr Clr Drug Dosing 90.25 mL/min Estimated GFR (MDRD) > 60 (>60) mL/min BUN/Creatinine Ratio 17.5 (14-18) Glucose 122 H (80-115) mg/dL Calcium 9.0 (8.5-10.1) mg/dL Magnesium 2.0 (1.8-2.4) mg/dl C-Reactive Protein 21.4 H* (<1.0) mg/dL Jose Antonio Results Last 24 Hours: Microbiology 12/21/18 16:15 Aerobic Blood Culture - Preliminary Blood - Venous - Lab Draw Gram Negative Rods Anaerobic Blood Culture - Preliminary NO GROWTH AFTER 3 DAYS 12/21/18 16:00 Aerobic Blood Culture - Preliminary Blood - Venous NO GROWTH AFTER 3 DAYS Anaerobic Blood Culture - Preliminary NO GROWTH AFTER 3 DAYS Med Orders - Current: Current Medications Acetaminophen (Tylenol) 650 mg PO Q4H PRN PRN Reason: Pain (Mild 1-3)/fever Hydrocodone Bitart/Acetaminophen ([place] 325-5 Mg) 1 tab PO Q4H PRN PRN Reason: Pain (moderate 4-6) Last Admin: 12/25/18 13:39 Dose: 1 tab Albuterol/Ipratropium (Duoneb 3.0-0.5 Mg/3 Ml) 3 ml NEB Q4H PRN PRN Reason: Shortness Of Breath/wheezing Allopurinol (Zyloprim) 300 mg PO DAILY [facility] Last Admin: 12/25/18 09:23 Dose: 300 mg Bisacodyl (Dulcolax) 5 mg PO DAILY PRN PRN Reason: Constipation Last Admin: 12/23/18 09:25 Dose: 5 mg Cholecalciferol (Vitamin D3) 5,000 unit PO DAILY [facility] Last Admin: 12/25/18 09:22 Dose: 5,000 unit Cyclobenzaprine HCl (Flexeril) 10 mg PO TID PRN PRN Reason: Muscle Spasm Last Admin: 12/25/18 11:00 Dose: 10 mg Docusate Sodium (Colace) 100 mg PO BID PRN PRN Reason: Constipation Last Admin: 12/22/18 22:37 Dose: 100 mg Finasteride (Proscar) 5 mg PO BEDTIME [facility] Last Admin: 12/24/18 20:50 Dose: 5 mg Hydralazine HCl (Apresoline) 20 mg IVPUSH Q4H PRN PRN Reason: Hypertension Hydromorphone HCl (Dilaudid) 1 mg IVPUSH Q2H PRN PRN Reason: Pain Promethazine HCl 6.25 mg/ (Sodium Chloride) 50.25 mls @ 100 mls/hr IV Q6H PRN PRN Reason: Nausea/Vomiting Cefazolin Sodium/Dextrose 1 gm (/ Premix) 50 mls @ 100 mls/hr IV Q8HR [facility] Last Admin: 12/25/18 13:39 Dose: 100 mls/hr Lorazepam (Ativan) 0.25 mg IV Q6H PRN PRN Reason: Anxiety Losartan Potassium (Cozaar) 25 mg PO DAILY [facility] Last Admin: 12/25/18 09:22 Dose: 25 mg Metoprolol Tartrate (Lopressor) 5 mg IVPUSH Q4H PRN PRN Reason: Tachycardia Ondansetron HCl (Zofran) 4 mg IV Q6H PRN PRN Reason: Nausea/Vomiting Oxycodone HCl (Oxycodone) 5 mg PO Q6H PRN PRN Reason: Pain Last Admin: 12/25/18 09:22 Dose: 5 mg Pantoprazole Sodium (Protonix) 40 mg PO ACBREAKFAST@0700 [facility] Last Admin: 12/25/18 06:02 Dose: 40 mg Silodosin 8 Mg 0 each PO DAILY@1800 [facility] Last Admin: 12/24/18 18:55 Dose: 1 each Polyethylene Glycol (Miralax) 17 gm PO DAILY PRN PRN Reason: Constipation Last Admin: 12/23/18 21:05 Dose: 17 gm Senna/Docusate Sodium (Senna Plus) 1 tab PO BID PRN PRN Reason: Constipation Sodium Chloride (Saline Flush) 10 ml FLUSH ASDIRECTED PRN PRN Reason: Keep Vein Open Last Admin: 12/21/18 16:05 Dose: 10 ml Temazepam (Restoril) 7.5 mg PO BEDTIME PRN PRN Reason: Sleep Warfarin Sodium (Pharmacy To Dose - Warfarin) 0 dose .XX ASDIRECTED PRN PRN Reason: RX TO DOSE WARFARIN Warfarin Sodium (Coumadin) 7.5 mg PO QPM [facility] Stop: 12/25/18 18:01 Discontinued Medications Allopurinol (Zyloprim) 300 mg PO DAILY [facility] Last Admin: 12/22/18 09:25 Dose: 300 mg Amlodipine Besylate (Norvasc) 5 mg PO DAILY [facility] Last Admin: 12/24/18 09:07 Dose: 5 mg Belladonna Alkaloids/Opium (B & O Supprettes No. 15a) 1 supp RECTAL Q6H PRN PRN Reason: bladder spasm Bisacodyl (Dulcolax) 10 mg RECTAL ONETIME ONE Stop: 12/24/18 03:40 Last Admin: 12/24/18 04:47 Dose: 10 mg Clonidine HCl (Catapres) 0.1 mg PO ONETIME ONE Stop: 12/21/18 21:26 Last Admin: 12/21/18 22:53 Dose: 0.1 mg Colchicine (Colcrys) 0.6 mg PO QID PRN PRN Reason: Other Famotidine (Pepcid) 20 mg PO BID [facility] Last Admin: 12/24/18 09:07 Dose: 20 mg Finasteride (Proscar) 5 mg PO NOW STA Stop: 12/21/18 21:26 Last Admin: 12/21/18 22:55 Dose: 5 mg Furosemide (Lasix) 20 mg PO DAILY [facility] Last Admin: 12/22/18 09:30 Dose: Not Given Furosemide (Lasix) 20 mg PO DAILY [facility] Furosemide (Lasix) 40 mg PO ONETIME ONE Stop: 12/23/18 15:01 Last Admin: 12/23/18 15:33 Dose: 40 mg Gadobenate Dimeglumine (Multihance) 20 ml IVPUSH ONETIME ONE Stop: 12/23/18 11:57 Last Admin: 12/23/18 12:12 Dose: 20 ml Hydromorphone HCl (Dilaudid) 1 mg IVPUSH ONETIME ONE Stop: 12/21/18 15:50 Last Admin: 12/21/18 16:13 Dose: 1 mg Hydromorphone HCl (Dilaudid) 0.5 mg IVPUSH Q2H PRN PRN Reason: Pain (severe 7-10) Last Admin: 12/22/18 09:21 Dose: 0.5 mg Sodium Chloride (Normal Saline) 1,000 mls @ 999 mls/hr IV ONETIME ONE Stop: 12/21/18 16:49 Last Admin: 12/21/18 16:15 Dose: 999 mls/hr Sodium Chloride (Normal Saline) 1,000 mls @ 999 mls/hr IV ONETIME ONE Stop: 12/21/18 17:53 Last Admin: 12/21/18 17:15 Dose: 999 mls/hr Ceftriaxone Sodium 2 gm/ (Sodium Chloride) 100 mls @ 200 mls/hr IV NOW STA Stop: 12/21/18 17:53 Last Admin: 12/21/18 17:37 Dose: 200 mls/hr Ceftriaxone Sodium 1 gm/ (Sodium Chloride) 100 mls @ 200 mls/hr IV Q24H [facility] Last Admin: 12/22/18 09:10 Dose: Not Given Piperacillin Sod/Tazobactam (Sod 4.5 gm/ Sodium Chloride) 100 mls @ 200 mls/hr IV ONETIME ONE Stop: 12/22/18 09:44 Last Admin: 12/22/18 09:27 Dose: 200 mls/hr Piperacillin Sod/Tazobactam (Sod 4.5 gm/ Sodium Chloride) 100 mls @ 25 mls/hr IV Q8H [facility] Last Admin: 12/23/18 09:13 Dose: 25 mls/hr Sodium Chloride (Normal Saline) 500 mls @ 999 mls/hr IV .BOLUS ONE Stop: 12/22/18 14:04 Last Admin: 12/22/18 13:43 Dose: 999 mls/hr Sodium Chloride (Normal Saline) 100 mls @ 75 mls/hr IV ASDIRECTED [facility] Stop: 12/22/18 16:00 Last Admin: 12/22/18 14:18 Dose: 75 mls/hr Iopamidol (Isovue-370 (76%)) 100 ml IVPUSH ONETIME ONE Stop: 12/22/18 13:41 Last Admin: 12/22/18 14:18 Dose: 100 ml Ketorolac Tromethamine (Toradol) 30 mg IM ONETIME ONE Stop: 12/24/18 09:25 Last Admin: 12/24/18 12:03 Dose: Not Given Non-Formulary Medication (Telmisartan/Hydrochlorothiazid [Telmisartan-Hctz 80- 12.5 Mg Tb]) 1 tab PO DAILY [facility] Ondansetron HCl (Zofran) 4 mg IVPUSH ONETIME ONE Stop: 12/21/18 15:50 Last Admin: 12/21/18 16:11 Dose: 4 mg Silodosin 8 Mg 0 each PO DAILY [facility] Last Admin: 12/23/18 09:15 Dose: Not Given Potassium Chloride (Klor-Con M20) 40 meq PO ONETIME ONE Stop: 12/23/18 16:19 Last Admin: 12/23/18 16:28 Dose: 40 meq Sodium Chloride (Saline Flush) 10 ml FLUSH ONETIME PRN PRN Reason: IV FLUSH Stop: 12/22/18 16:00 Last Admin: 12/22/18 14:18 Dose: 10 ml Sodium Chloride (Saline Flush) 10 ml FLUSH ONETIME PRN PRN Reason: IV FLUSH Stop: 12/23/18 13:00 Last Admin: 12/23/18 12:12 Dose: 10 ml Warfarin Sodium (Coumadin) 5 mg PO DAILY@1800 [facility] Last Admin: 12/22/18 17:23 Dose: 5 mg Warfarin Sodium (Coumadin) 10 mg PO ONETIME ONE Stop: 12/21/18 21:18 Last Admin: 12/22/18 08:55 Dose: Not Given Warfarin Sodium (Coumadin) 5 mg PO ONETIME ONE Stop: 12/21/18 21:18 Last Admin: 12/21/18 22:51 Dose: 5 mg Warfarin Sodium (Coumadin Sliding Scale) 0 each PO QPM [facility] Stop: 12/23/18 18:01 Last Admin: 12/23/18 19:06 Dose: Not Given Warfarin Sodium (Coumadin Sliding Scale) 0 each PO QPM [facility] Stop: 12/24/18 18:01 Last Admin: 12/24/18 18:11 Dose: Not Given - Exam Quality Assessment: Supplemental Oxygen General: Alert, Oriented HEENT: Pupils Equal, Pupils Reactive Neck: Supple Lungs: Clear to Auscultation, Normal Respiratory Effort Cardiovascular: Regular Rate, Regular Rhythm GI/Abdominal Exam: Normal Bowel Sounds, Soft, Non-Tender, No Distention Back Exam: Normal Inspection Extremities: Normal Inspection, Normal Range of Motion, Non-Tender, No Pedal Edema Psy/Mental Status: Alert, Normal Affect, Normal Mood - Problem List Review Problem List Initiated/Reviewed/Updated: Yes - My Orders Last 24 Hours: My Active Orders 12/25/18 13:23 Blood Culture x2 Reflex Set [OM.PC] Stat 12/25/18 13:30 CULTURE BLOOD [BC] Stat CULTURE BLOOD [BC] Stat 12/25/18 18:00 Warfarin [Coumadin] 7.5 mg PO QPM - Plan Plan:: Assessment: Acute: UTI/parostitis - pansensitive Escherichia coli - 2/2 recent indwelling catheter use - Has urinary retention from markedly enlarged prostate - UA shows hematuria and bacteruria--> GNR - Suprapubic pain with radiation to his left groin - Afebrile and with mild leukocytosis in ED - Ancef 1 g every 8 hours - slight increase in white count to 9.75 with decreasing fevers or protein at 21.4 - Continue to monitor gram-negative abundio bacteremia - Repeat blood cultures - Continue IV antibiotics Urinary Retention - 2/2 Markedly Enlarged Prostate - Recently had guerrero catheter for it - He is able to void now per family - Bladder scan showed 46 ml of retained urine - He is on Silodosin for maintenance medication - Add 5-AR Inhibitor - Urology eval after discharge Abductor muscle strain bilaterally - MRI shows: 1. Diffuse edema within the abductor muscle groups on both sides , worse on the right side. Findings presumably due to previous trauma with partial muscle tearing. Infection is also a possibility, but seems unlikely without any more superficial edema being seen. 2. Markedly enlarged prostate gland. 3. Degenerative change is partially visualized within the lumbar spine. - MRI is consistent with patient's symptoms. Pain has worsened and we do not have physical therapy available. C-reactive protein did increase slightly coming down at 24.7 from 25.9. At this point, we will continue with Ancef and see if there is any improvement. - Trial of Flexeril 10 mg. Patient states it did not help his pain. 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 Nothing acute is appreciated - U/S shows no blood clot - Uric Acid level is wnl - Originally ordered abdominal/pelvis/hip MRI but after discussing it with Dr. Cazares, he recommended Abdominal/Pelvis CTA - Abdominal/Pelvis CTA report: Slight atherosclerotic calcification within the common iliac arteries. No aorto-iliac dissection or occlusion. Branch vessels off the aorta also show no occlusion or focal stenosis. Degenerative change within the spine as well as vacuum phenomena within the sacroiliac joints - Lumbar x-ray done on 10/31/2018: Scoliosis as well as diffuse degenerative change - Pain with adduction, abduction, interna/external rotation, straight leg raise and flexion motion - Symptom may improve with weight loss - PRN pain medications, muscle relaxant, as well as PT/OT - If no response, consider ortho consult in AM Resolved: S/p Lactic Acidosis - 2/2 Infection - Received 2L of NS in ED - Repeat LA S/p Accelerated/Malignant HTN - Carries a hx/o HTN - BP of 141/120 mmHg - He takes ARB/HCT combo for maintenance medications - Clonidine po x1 and PRN IV Hydralazine for BP > 150/90 mmHg - Losartan 25 mg po daily and Norvasc 5 mg po daily for inpatient maintenance medications Chronic: Cataract, Hx/o Blood Clot, HTN, Dextrocardia, GERD, BPH, Gout, Polycythemia, and Obesity Plan: Admit to [facility] Resume Home Meds except HCTZ due to Gout Routine AM Labs Regular Diet Dietary consult for Gout Diet and Weight Management Daily INR PT/OT eval Need urology eval after discharge SW/CM for d/c planning Code status: full Additional orders as above
[2018-12-25] MEDS ORDERED: Warfarin 7.5 MG Tab PO SCH (18:00)
[2018-12-25] MEDS: Silodosin 8 MG PO SCH (18:02)
[2018-12-25] MEDS: Finasteride 5 MG Tab PO SCH (20:18)
[2018-12-26] MEDS: Cyclobenzaprine 10 MG Tab PO PRN ×3 (00:48→20:21)
[2018-12-26] MEDS: ceFAZolin 1 GM in Premix Bag 1 BAG IV SCH (05:10)
[2018-12-26] MEDS: Pantoprazole 40 MG Tab.CR PO SCH (06:47)
[2018-12-26] MEDS: Losartan 25 MG Tab PO SCH (08:57)
[2018-12-26] MEDS: Cholecalciferol (Vitamin D3) 5,000 UNIT Tab PO SCH (08:58)
[2018-12-26] MEDS: Allopurinol 300 MG Tab PO SCH (08:58)
[2018-12-26] MEDS ORDERED: Colchicine 0.6 MG Tab PO ONE ×2 (12:11→13:30)
[2018-12-26] MEDS: Indomethacin 25 MG Cap PO SCH ×2 (12:51→17:19)
[2018-12-26] MEDS: ceFAZolin 2 GM in Premix Bag 1 BAG IV SCH ×2 (12:59→20:21)
--- NOTE | 2018-12-26 14:32 | PCM.PN ---
- General Info Date of Service: 12/26/18 Admission Dx/Problem (Free Text): Admission Diagnosis/Problem Admission Diagnosis/Problem Urinary tract infection Subjective Update: Pain in the lower abdomen and inner thighs has improved. he now complains of right lateral foot pain. He states it feels like a gouty flare. Pain is moderate at rest. It started this morning. Functional Status: Denies: Pain Controlled - Review of Systems General: Reports: No Symptoms HEENT: Reports: No Symptoms Pulmonary: Reports: No Symptoms Cardiovascular: Reports: No Symptoms Gastrointestinal: Reports: No Symptoms - Patient Data Vitals - Most Recent: Last Vital Signs Temp 99.0 F 12/26/18 11:28 Pulse 89 12/26/18 11:28 Resp 20 12/26/18 11:28 BP 136/85 12/26/18 11:28 Pulse Ox 98 12/26/18 11:28 Weight - Most Recent: 233 lb I&O - Last 24 Hours: Intake & Output 12/25/18 12/26/18 12/26/18 22:59 06:59 14:59 Intake Total 950 800 180 Output Total 200 400 Balance 750 400 180 Lab Results Last 24 Hours: Laboratory Results - last 24 hr 12/26/18 12/26/18 12/26/18 Range/Units 04:55 04:55 04:55 WBC 9.86 H (4.23-9.07) K/mm3 RBC 5.47 (4.63-6.08) M/mm3 Hgb 13.9 (13.7-17.5) gm/L Hct 42.4 (40.1-51.0) % MCV 77.5 L (79.0-92.2) fl MCH 25.4 L (25.7-32.2) pg MCHC 32.8 (32.2-35.5) g/dl RDW Std Deviation 44.9 H (35.1-43.9) fL Plt Count 200 (163-337) K/mm3 MPV 12.3 (9.4-12.3) fl Neut % (Auto) 70.3 H (34.0-67.9) % Lymph % (Auto) 15.0 L (21.8-53.1) % [place] % (Auto) 7.6 (5.3-12.2) % Eos % (Auto) 2.4 (0.8-7.0) Baso % (Auto) 0.6 (0.1-1.2) % Neut # (Auto) 6.93 H (1.78-5.38) K/mm3 Lymph # (Auto) 1.48 (1.32-3.57) K/mm3 [place] # (Auto) 0.75 (0.30-0.82) K/mm3 Eos # (Auto) 0.24 (0.04-0.54) K/mm3 Baso # (Auto) 0.06 (0.01-0.08) K/mm3 Manual Slide Review Abnormal smear PT 18.8 H (9.7-12.0) SECONDS INR 1.78 Sodium 138 (136-145) mEq/L Potassium 3.8 (3.5-5.1) mEq/L Chloride 103 (98-107) mEq/L Carbon Dioxide 26 (21-32) mEq/L Anion Gap 12.8 (5-15) BUN 15 (7-18) mg/dL Creatinine 0.7 (0.7-1.3) mg/dL Est Cr Clr Drug Dosing 103.14 mL/min Estimated GFR (MDRD) > 60 (>60) mL/min BUN/Creatinine Ratio 21.4 H (14-18) Glucose 105 (80-115) mg/dL Uric Acid (3.5-7.2) mg/dL Calcium 9.0 (8.5-10.1) mg/dL Magnesium 2.0 (1.8-2.4) mg/dl C-Reactive Protein 17.9 H* (<1.0) mg/dL 12/26/18 Range/Units 04:55 WBC (4.23-9.07) K/mm3 RBC (4.63-6.08) M/mm3 Hgb (13.7-17.5) gm/L Hct (40.1-51.0) % MCV (79.0-92.2) fl MCH (25.7-32.2) pg MCHC (32.2-35.5) g/dl RDW Std Deviation (35.1-43.9) fL Plt Count (163-337) K/mm3 MPV (9.4-12.3) fl Neut % (Auto) (34.0-67.9) % Lymph % (Auto) (21.8-53.1) % [place] % (Auto) (5.3-12.2) % Eos % (Auto) (0.8-7.0) Baso % (Auto) (0.1-1.2) % Neut # (Auto) (1.78-5.38) K/mm3 Lymph # (Auto) (1.32-3.57) K/mm3 [place] # (Auto) (0.30-0.82) K/mm3 Eos # (Auto) (0.04-0.54) K/mm3 Baso # (Auto) (0.01-0.08) K/mm3 Manual Slide Review PT (9.7-12.0) SECONDS INR Sodium (136-145) mEq/L Potassium (3.5-5.1) mEq/L Chloride (98-107) mEq/L Carbon Dioxide (21-32) mEq/L Anion Gap (5-15) BUN (7-18) mg/dL Creatinine (0.7-1.3) mg/dL Est Cr Clr Drug Dosing mL/min Estimated GFR (MDRD) (>60) mL/min BUN/Creatinine Ratio (14-18) Glucose (80-115) mg/dL Uric Acid 4.2 (3.5-7.2) mg/dL Calcium (8.5-10.1) mg/dL Magnesium (1.8-2.4) mg/dl C-Reactive Protein (<1.0) mg/dL Jose Antonio Results Last 24 Hours: Microbiology 12/25/18 13:30 Aerobic Blood Culture - Preliminary Blood - Venous - Lab Draw NO GROWTH AFTER 1 DAY Anaerobic Blood Culture - Preliminary NO GROWTH AFTER 1 DAY 12/25/18 13:30 Aerobic Blood Culture - Preliminary Blood - Venous NO GROWTH AFTER 1 DAY Anaerobic Blood Culture - Preliminary NO GROWTH AFTER 1 DAY 12/21/18 16:15 Aerobic Blood Culture - Preliminary Blood - Venous - Lab Draw Gram Negative Rods Anaerobic Blood Culture - Preliminary NO GROWTH AFTER 4 DAYS 12/21/18 16:00 Aerobic Blood Culture - Preliminary Blood - Venous NO GROWTH AFTER 4 DAYS Anaerobic Blood Culture - Preliminary NO GROWTH AFTER 4 DAYS Med Orders - Current: Current Medications Acetaminophen (Tylenol) 650 mg PO Q4H PRN PRN Reason: Pain (Mild 1-3)/fever Hydrocodone Bitart/Acetaminophen ([place] 325-5 Mg) 1 tab PO Q4H PRN PRN Reason: Pain (moderate 4-6) Last Admin: 12/25/18 20:18 Dose: 1 tab Albuterol/Ipratropium (Duoneb 3.0-0.5 Mg/3 Ml) 3 ml NEB Q4H PRN PRN Reason: Shortness Of Breath/wheezing Allopurinol (Zyloprim) 300 mg PO DAILY [facility] Last Admin: 12/26/18 08:58 Dose: 300 mg Bisacodyl (Dulcolax) 5 mg PO DAILY PRN PRN Reason: Constipation Last Admin: 12/23/18 09:25 Dose: 5 mg Cholecalciferol (Vitamin D3) 5,000 unit PO DAILY [facility] Last Admin: 12/26/18 08:58 Dose: 5,000 unit Cyclobenzaprine HCl (Flexeril) 10 mg PO TID PRN PRN Reason: Muscle Spasm Last Admin: 12/26/18 08:57 Dose: 10 mg Docusate Sodium (Colace) 100 mg PO BID PRN PRN Reason: Constipation Last Admin: 12/22/18 22:37 Dose: 100 mg Finasteride (Proscar) 5 mg PO BEDTIME [facility] Last Admin: 12/25/18 20:18 Dose: 5 mg Hydralazine HCl (Apresoline) 20 mg IVPUSH Q4H PRN PRN Reason: Hypertension Hydromorphone HCl (Dilaudid) 1 mg IVPUSH Q2H PRN PRN Reason: Pain Promethazine HCl 6.25 mg/ (Sodium Chloride) 50.25 mls @ 100 mls/hr IV Q6H PRN PRN Reason: Nausea/Vomiting Cefazolin Sodium/Dextrose 2 gm (/ Premix) 50 mls @ 100 mls/hr IV Q8H [facility] Last Admin: 12/26/18 12:59 Dose: 100 mls/hr Indomethacin (Indocin) 50 mg PO TIDMEALS [facility] Stop: 12/27/18 13:01 Last Admin: 12/26/18 12:51 Dose: 50 mg Lorazepam (Ativan) 0.25 mg IV Q6H PRN PRN Reason: Anxiety Losartan Potassium (Cozaar) 25 mg PO DAILY [facility] Last Admin: 12/26/18 08:57 Dose: 25 mg Metoprolol Tartrate (Lopressor) 5 mg IVPUSH Q4H PRN PRN Reason: Tachycardia Ondansetron HCl (Zofran) 4 mg IV Q6H PRN PRN Reason: Nausea/Vomiting Oxycodone HCl (Oxycodone) 5 mg PO Q6H PRN PRN Reason: Pain Last Admin: 12/25/18 09:22 Dose: 5 mg Pantoprazole Sodium (Protonix) 40 mg PO ACBREAKFAST@0700 [facility] Last Admin: 12/26/18 06:47 Dose: 40 mg Silodosin 8 Mg 0 each PO DAILY@1800 [facility] Last Admin: 12/25/18 18:02 Dose: 1 each Polyethylene Glycol (Miralax) 17 gm PO DAILY PRN PRN Reason: Constipation Last Admin: 12/23/18 21:05 Dose: 17 gm Senna/Docusate Sodium (Senna Plus) 1 tab PO BID PRN PRN Reason: Constipation Sodium Chloride (Saline Flush) 10 ml FLUSH ASDIRECTED PRN PRN Reason: Keep Vein Open Last Admin: 12/21/18 16:05 Dose: 10 ml Temazepam (Restoril) 7.5 mg PO BEDTIME PRN PRN Reason: Sleep Warfarin Sodium (Pharmacy To Dose - Warfarin) 0 dose .XX ASDIRECTED PRN PRN Reason: RX TO DOSE WARFARIN Warfarin Sodium (Coumadin) 7.5 mg PO QPM [facility] Stop: 12/26/18 18:01 Discontinued Medications Allopurinol (Zyloprim) 300 mg PO DAILY [facility] Last Admin: 12/22/18 09:25 Dose: 300 mg Amlodipine Besylate (Norvasc) 5 mg PO DAILY [facility] Last Admin: 12/24/18 09:07 Dose: 5 mg Belladonna Alkaloids/Opium (B & O Supprettes No. 15a) 1 supp RECTAL Q6H PRN PRN Reason: bladder spasm Bisacodyl (Dulcolax) 10 mg RECTAL ONETIME ONE Stop: 12/24/18 03:40 Last Admin: 12/24/18 04:47 Dose: 10 mg Clonidine HCl (Catapres) 0.1 mg PO ONETIME ONE Stop: 12/21/18 21:26 Last Admin: 12/21/18 22:53 Dose: 0.1 mg Colchicine (Colcrys) 0.6 mg PO QID PRN PRN Reason: Other Colchicine (Colcrys) 1.2 mg PO ONETIME ONE Stop: 12/26/18 12:12 Last Admin: 12/26/18 13:15 Dose: 1.2 mg Colchicine (Colcrys) 0.6 mg PO ONETIME ONE Stop: 12/26/18 13:31 Famotidine (Pepcid) 20 mg PO BID [facility] Last Admin: 12/24/18 09:07 Dose: 20 mg Finasteride (Proscar) 5 mg PO NOW STA Stop: 12/21/18 21:26 Last Admin: 12/21/18 22:55 Dose: 5 mg Furosemide (Lasix) 20 mg PO DAILY [facility] Last Admin: 12/22/18 09:30 Dose: Not Given Furosemide (Lasix) 20 mg PO DAILY [facility] Furosemide (Lasix) 40 mg PO ONETIME ONE Stop: 12/23/18 15:01 Last Admin: 12/23/18 15:33 Dose: 40 mg Gadobenate Dimeglumine (Multihance) 20 ml IVPUSH ONETIME ONE Stop: 12/23/18 11:57 Last Admin: 12/23/18 12:12 Dose: 20 ml Hydromorphone HCl (Dilaudid) 1 mg IVPUSH ONETIME ONE Stop: 12/21/18 15:50 Last Admin: 12/21/18 16:13 Dose: 1 mg Hydromorphone HCl (Dilaudid) 0.5 mg IVPUSH Q2H PRN PRN Reason: Pain (severe 7-10) Last Admin: 12/22/18 09:21 Dose: 0.5 mg Sodium Chloride (Normal Saline) 1,000 mls @ 999 mls/hr IV ONETIME ONE Stop: 12/21/18 16:49 Last Admin: 12/21/18 16:15 Dose: 999 mls/hr Sodium Chloride (Normal Saline) 1,000 mls @ 999 mls/hr IV ONETIME ONE Stop: 12/21/18 17:53 Last Admin: 12/21/18 17:15 Dose: 999 mls/hr Ceftriaxone Sodium 2 gm/ (Sodium Chloride) 100 mls @ 200 mls/hr IV NOW STA Stop: 12/21/18 17:53 Last Admin: 12/21/18 17:37 Dose: 200 mls/hr Ceftriaxone Sodium 1 gm/ (Sodium Chloride) 100 mls @ 200 mls/hr IV Q24H [facility] Last Admin: 12/22/18 09:10 Dose: Not Given Piperacillin Sod/Tazobactam (Sod 4.5 gm/ Sodium Chloride) 100 mls @ 200 mls/hr IV ONETIME ONE Stop: 12/22/18 09:44 Last Admin: 12/22/18 09:27 Dose: 200 mls/hr Piperacillin Sod/Tazobactam (Sod 4.5 gm/ Sodium Chloride) 100 mls @ 25 mls/hr IV Q8H [facility] Last Admin: 12/23/18 09:13 Dose: 25 mls/hr Sodium Chloride (Normal Saline) 500 mls @ 999 mls/hr IV .BOLUS ONE Stop: 12/22/18 14:04 Last Admin: 12/22/18 13:43 Dose: 999 mls/hr Sodium Chloride (Normal Saline) 100 mls @ 75 mls/hr IV ASDIRECTED HEATHER Stop: 12/22/18 16:00 Last Admin: 12/22/18 14:18 Dose: 75 mls/hr Cefazolin Sodium/Dextrose 1 gm (/ Premix) 50 mls @ 100 mls/hr IV Q8HR [facility] Last Admin: 12/26/18 05:10 Dose: 100 mls/hr Iopamidol (Isovue-370 (76%)) 100 ml IVPUSH ONETIME ONE Stop: 12/22/18 13:41 Last Admin: 12/22/18 14:18 Dose: 100 ml Ketorolac Tromethamine (Toradol) 30 mg IM ONETIME ONE Stop: 12/24/18 09:25 Last Admin: 12/24/18 12:03 Dose: Not Given Non-Formulary Medication (Telmisartan/Hydrochlorothiazid [Telmisartan-Hctz 80- 12.5 Mg Tb]) 1 tab PO DAILY [facility] Ondansetron HCl (Zofran) 4 mg IVPUSH ONETIME ONE Stop: 12/21/18 15:50 Last Admin: 12/21/18 16:11 Dose: 4 mg Silodosin 8 Mg 0 each PO DAILY [facility] Last Admin: 12/23/18 09:15 Dose: Not Given Potassium Chloride (Klor-Con M20) 40 meq PO ONETIME ONE Stop: 12/23/18 16:19 Last Admin: 12/23/18 16:28 Dose: 40 meq Sodium Chloride (Saline Flush) 10 ml FLUSH ONETIME PRN PRN Reason: IV FLUSH Stop: 12/22/18 16:00 Last Admin: 12/22/18 14:18 Dose: 10 ml Sodium Chloride (Saline Flush) 10 ml FLUSH ONETIME PRN PRN Reason: IV FLUSH Stop: 12/23/18 13:00 Last Admin: 12/23/18 12:12 Dose: 10 ml Warfarin Sodium (Coumadin) 5 mg PO DAILY@1800 [facility] Last Admin: 12/22/18 17:23 Dose: 5 mg Warfarin Sodium (Coumadin) 10 mg PO ONETIME ONE Stop: 12/21/18 21:18 Last Admin: 12/22/18 08:55 Dose: Not Given Warfarin Sodium (Coumadin) 5 mg PO ONETIME ONE Stop: 12/21/18 21:18 Last Admin: 12/21/18 22:51 Dose: 5 mg Warfarin Sodium (Coumadin Sliding Scale) 0 each PO QPM [facility] Stop: 12/23/18 18:01 Last Admin: 12/23/18 19:06 Dose: Not Given Warfarin Sodium (Coumadin Sliding Scale) 0 each PO QPM [facility] Stop: 12/24/18 18:01 Last Admin: 12/24/18 18:11 Dose: Not Given Warfarin Sodium (Coumadin) 7.5 mg PO QPM [facility] Stop: 12/25/18 18:01 Last Admin: 12/25/18 18:01 Dose: 7.5 mg - Exam Quality Assessment: No: Supplemental Oxygen General: Alert, Oriented HEENT: Pupils Equal Neck: Supple Lungs: Clear to Auscultation, Normal Respiratory Effort Cardiovascular: Regular Rate, Regular Rhythm GI/Abdominal Exam: Normal Bowel Sounds, Soft, No Distention, Tender (suprapubic tenderness. Not as severe.) Extremities: Leg Pain (Medial thigh tenderness. Not as severe.), Other (right plate drying machine tender and red at base of 5th metatarsal.) Psy/Mental Status: Alert, Normal Affect, Normal Mood - Problem List Review Problem List Initiated/Reviewed/Updated: Yes - My Orders Last 24 Hours: My Active Orders 12/25/18 13:30 CULTURE BLOOD [BC] Stat CULTURE BLOOD [BC] Stat 12/26/18 13:00 Indomethacin [Indocin] 50 mg PO TIDMEALS ceFAZolin [Ancef] 2 gm Premix Bag 1 bag IV Q8H 12/26/18 18:00 Warfarin [Coumadin] 7.5 mg PO QPM - Plan Plan:: Assessment: Acute: UTI/parostitis - pansensitive Escherichia coli - 2/2 recent indwelling catheter use - Has urinary retention from markedly enlarged prostate - UA shows hematuria and bacteruria--> GNR - Suprapubic pain with radiation to his left groin - Afebrile and with mild leukocytosis in ED - Increase Ancef 2 g every 8 hours - slight increase in white count to 9.75 with decreasing fevers and CRP 17.9 - Continue to monitor gram-negative abundio bacteremia - Repeat blood cultures - Continue IV antibiotics - Waiting for culture results - increase Ancef to 2 gm every 8 hours Urinary Retention - 2/2 Markedly Enlarged Prostate - Recently had guerrero catheter for it - He is able to void now per family - Bladder scan showed 46 ml of retained urine - He is on Silodosin for maintenance medication - Add 5-AR Inhibitor - Urology eval after discharge Abductor muscle strain bilaterally - MRI shows: 1. Diffuse edema within the abductor muscle groups on both sides , worse on the right side. Findings presumably due to previous trauma with partial muscle tearing. Infection is also a possibility, but seems unlikely without any more superficial edema being seen. 2. Markedly enlarged prostate gland. 3. Degenerative change is partially visualized within the lumbar spine. - MRI is consistent with patient's symptoms. Pain has worsened and we do not have physical therapy available. - Flexeril 10 mg tid prn Left Groin Pain with Generalized Weakness - No back pain, numbness or tingling to bilateral lower extremities - Reviewed Abdominal/Pelvis CT scan report: shows diffuse disc space narrowing and endplate osteophytes within the spine. Nothing acute is appreciated - U/S shows no blood clot - Uric Acid level is wnl - Originally ordered abdominal/pelvis/hip MRI but after discussing it with Dr. Cazares, he recommended Abdominal/Pelvis CTA - Abdominal/Pelvis CTA report: Slight atherosclerotic calcification within the common iliac arteries. No aorto-iliac dissection or occlusion. Branch vessels off the aorta also show no occlusion or focal stenosis. Degenerative change within the spine as well as vacuum phenomena within the sacroiliac joints - Lumbar x-ray done on 10/31/2018: Scoliosis as well as diffuse degenerative change - Pain with adduction, abduction, interna/external rotation, straight leg raise and flexion motion - Symptom may improve with weight loss - PRN pain medications, muscle relaxant, as well as PT/OT - If no response, consider ortho consult in AM Right foot pain and tenderness consistent with gout - Trial of colchicine - indomethacin 50 mg tid x 3 doses; no longer 2/2 warfarin Class II Obese - BMI of 35.9 - Advised LSM - Dietary consult for weight management 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 - INR of 1.68-->1.80 --> 2.8-->3.15-->2.1-->1.8 - He takes 5 mg po daily at home - Pharmacy to dose warfarin Resolved: S/p Lactic Acidosis - 2/2 Infection - Received 2L of NS in ED - Repeat LA S/p Accelerated/Malignant HTN - Carries a hx/o HTN - BP of 141/120 mmHg - He takes ARB/HCT combo for maintenance medications - Clonidine po x1 and PRN IV Hydralazine for BP > 150/90 mmHg - Losartan 25 mg po daily and Norvasc 5 mg po daily for inpatient maintenance medications Chronic: Cataract, Hx/o Blood Clot, HTN, Dextrocardia, GERD, BPH, Gout, Polycythemia, and Obesity Plan: Admit to [facility] Resume Home Meds except HCTZ due to Gout Routine AM Labs Regular Diet Dietary consult for Gout Diet and Weight Management Daily INR PT/OT eval Need urology eval after discharge SW/CM for d/c planning Code status: full Additional orders as above
[2018-12-26] MEDS: Silodosin 8 MG PO SCH (17:21)
[2018-12-26] MEDS ORDERED: Warfarin 7.5 MG Tab PO SCH (18:00)
[2018-12-26] MEDS: Finasteride 5 MG Tab PO SCH (20:21)
[2018-12-27] MEDS: Indomethacin 25 MG Cap PO SCH ×2 (06:05→11:17)
[2018-12-27] MEDS: ceFAZolin 2 GM in Premix Bag 1 BAG IV SCH ×3 (06:05→17:21)
[2018-12-27] MEDS: Pantoprazole 40 MG Tab.CR PO SCH (06:06)
[2018-12-27] MEDS: Magnesium Hydroxide 400 MG/5 ML Susp 30 ML Cup PO ONE ×2 (06:06→06:11)
--- NOTE | 2018-12-27 07:57 | PCM.PN ---
- General Info Date of Service: 12/27/18 Admission Dx/Problem (Free Text): Admission Diagnosis/Problem Admission Diagnosis/Problem Urinary tract infection Subjective Update: Pain in the lower abdomen and inner thighs has improved. he now complains of right lateral foot pain. He states it feels like a gouty flare. Pain is moderate at rest. It started this morning. Functional Status: Reports: Pain Controlled, Tolerating Diet, Ambulating, Urinating. Denies: New Symptoms - Patient Data Vitals - Most Recent: Last Vital Signs Temp 36.8 C 12/27/18 06:47 Pulse 64 12/27/18 06:47 Resp 14 12/27/18 06:47 BP 117/67 12/27/18 06:47 Pulse Ox 96 12/27/18 06:47 Weight - Most Recent: 103.374 kg I&O - Last 24 Hours: Intake & Output 12/26/18 12/27/18 12/27/18 22:59 06:59 14:59 Intake Total 350 800 Output Total 500 Balance -150 800 Lab Results Last 24 Hours: Laboratory Results - last 24 hr 12/26/18 12/26/18 12/27/18 Range/Units 04:55 04:55 07:10 WBC (4.23-9.07) K/mm3 RBC (4.63-6.08) M/mm3 Hgb (13.7-17.5) gm/L Hct (40.1-51.0) % MCV (79.0-92.2) fl MCH (25.7-32.2) pg MCHC (32.2-35.5) g/dl RDW Std Deviation (35.1-43.9) fL Plt Count (163-337) K/mm3 MPV (9.4-12.3) fl Neut % (Auto) (34.0-67.9) % Lymph % (Auto) (21.8-53.1) % [place] % (Auto) (5.3-12.2) % Eos % (Auto) (0.8-7.0) Baso % (Auto) (0.1-1.2) % Neut # (Auto) (1.78-5.38) K/mm3 Lymph # (Auto) (1.32-3.57) K/mm3 [place] # (Auto) (0.30-0.82) K/mm3 Eos # (Auto) (0.04-0.54) K/mm3 Baso # (Auto) (0.01-0.08) K/mm3 Manual Slide Review Abnormal smear PT 20.0 H (9.7-12.0) SECONDS INR 1.90 Sodium (136-145) mEq/L Potassium (3.5-5.1) mEq/L Chloride (98-107) mEq/L Carbon Dioxide (21-32) mEq/L Anion Gap (5-15) BUN (7-18) mg/dL Creatinine (0.7-1.3) mg/dL Est Cr Clr Drug Dosing mL/min Estimated GFR (MDRD) (>60) mL/min BUN/Creatinine Ratio (14-18) Glucose (80-115) mg/dL Uric Acid 4.2 (3.5-7.2) mg/dL Calcium (8.5-10.1) mg/dL Total Bilirubin (0.2-1.0) mg/dL AST (15-37) U/L ALT (16-63) U/L Alkaline Phosphatase (46-116) U/L C-Reactive Protein (<1.0) mg/dL Total Protein (6.4-8.2) g/dl Albumin (3.4-5.0) g/dl Globulin gm/dL Albumin/Globulin Ratio (1-2) 12/27/18 12/27/18 Range/Units 07:10 07:10 WBC 8.79 (4.23-9.07) K/mm3 RBC 5.74 (4.63-6.08) M/mm3 Hgb 14.6 (13.7-17.5) gm/L Hct 44.7 (40.1-51.0) % MCV 77.9 L (79.0-92.2) fl MCH 25.4 L (25.7-32.2) pg MCHC 32.7 (32.2-35.5) g/dl RDW Std Deviation 45.7 H (35.1-43.9) fL Plt Count 269 (163-337) K/mm3 MPV 11.7 (9.4-12.3) fl Neut % (Auto) 67.7 (34.0-67.9) % Lymph % (Auto) 14.9 L (21.8-53.1) % [place] % (Auto) 7.1 (5.3-12.2) % Eos % (Auto) 3.1 (0.8-7.0) Baso % (Auto) 0.9 (0.1-1.2) % Neut # (Auto) 5.96 H (1.78-5.38) K/mm3 Lymph # (Auto) 1.31 L (1.32-3.57) K/mm3 [place] # (Auto) 0.62 (0.30-0.82) K/mm3 Eos # (Auto) 0.27 (0.04-0.54) K/mm3 Baso # (Auto) 0.08 (0.01-0.08) K/mm3 Manual Slide Review Abnormal smear PT (9.7-12.0) SECONDS INR Sodium 141 (136-145) mEq/L Potassium 3.9 (3.5-5.1) mEq/L Chloride 105 (98-107) mEq/L Carbon Dioxide 31 (21-32) mEq/L Anion Gap 8.9 (5-15) BUN 22 H (7-18) mg/dL Creatinine 1.1 (0.7-1.3) mg/dL Est Cr Clr Drug Dosing 65.64 mL/min Estimated GFR (MDRD) > 60 (>60) mL/min BUN/Creatinine Ratio 20.0 H (14-18) Glucose 131 H (80-115) mg/dL Uric Acid (3.5-7.2) mg/dL Calcium 9.1 (8.5-10.1) mg/dL Total Bilirubin 0.5 (0.2-1.0) mg/dL AST 21 (15-37) U/L ALT 27 (16-63) U/L Alkaline Phosphatase 133 H (46-116) U/L C-Reactive Protein 17.9 H* (<1.0) mg/dL Total Protein 7.2 (6.4-8.2) g/dl Albumin 2.5 L (3.4-5.0) g/dl Globulin 4.7 gm/dL Albumin/Globulin Ratio 0.5 L (1-2) Jose Antonio Results Last 24 Hours: Microbiology 12/21/18 16:15 Aerobic Blood Culture - Preliminary Blood - Venous - Lab Draw Gram Negative Rods Anaerobic Blood Culture - Preliminary NO GROWTH AFTER 5 DAYS 12/21/18 16:00 Aerobic Blood Culture - Preliminary Blood - Venous NO GROWTH AFTER 5 DAYS Anaerobic Blood Culture - Preliminary NO GROWTH AFTER 5 DAYS 12/25/18 13:30 Aerobic Blood Culture - Preliminary Blood - Venous - Lab Draw NO GROWTH AFTER 1 DAY Anaerobic Blood Culture - Preliminary NO GROWTH AFTER 1 DAY 12/25/18 13:30 Aerobic Blood Culture - Preliminary Blood - Venous NO GROWTH AFTER 1 DAY Anaerobic Blood Culture - Preliminary NO GROWTH AFTER 1 DAY Med Orders - Current: Current Medications Acetaminophen (Tylenol) 650 mg PO Q4H PRN PRN Reason: Pain (Mild 1-3)/fever Hydrocodone Bitart/Acetaminophen (Gary 325-5 Mg) 1 tab PO Q4H PRN PRN Reason: Pain (moderate 4-6) Last Admin: 12/25/18 20:18 Dose: 1 tab Albuterol/Ipratropium (Duoneb 3.0-0.5 Mg/3 Ml) 3 ml NEB Q4H PRN PRN Reason: Shortness Of Breath/wheezing Allopurinol (Zyloprim) 300 mg PO DAILY [facility] Last Admin: 12/26/18 08:58 Dose: 300 mg Bisacodyl (Dulcolax) 5 mg PO DAILY PRN PRN Reason: Constipation Last Admin: 12/23/18 09:25 Dose: 5 mg Cholecalciferol (Vitamin D3) 5,000 unit PO DAILY [facility] Last Admin: 12/26/18 08:58 Dose: 5,000 unit Cyclobenzaprine HCl (Flexeril) 10 mg PO TID PRN PRN Reason: Muscle Spasm Last Admin: 12/26/18 20:21 Dose: 10 mg Docusate Sodium (Colace) 100 mg PO BID PRN PRN Reason: Constipation Last Admin: 12/22/18 22:37 Dose: 100 mg Finasteride (Proscar) 5 mg PO BEDTIME [facility] Last Admin: 12/26/18 20:21 Dose: 5 mg Hydralazine HCl (Apresoline) 20 mg IVPUSH Q4H PRN PRN Reason: Hypertension Hydromorphone HCl (Dilaudid) 1 mg IVPUSH Q2H PRN PRN Reason: Pain Promethazine HCl 6.25 mg/ (Sodium Chloride) 50.25 mls @ 100 mls/hr IV Q6H PRN PRN Reason: Nausea/Vomiting Cefazolin Sodium/Dextrose 2 gm (/ Premix) 50 mls @ 100 mls/hr IV Q8H [facility] Last Admin: 12/27/18 06:05 Dose: 100 mls/hr Indomethacin (Indocin) 50 mg PO TIDMEALS [facility] Stop: 12/27/18 13:01 Last Admin: 12/27/18 06:05 Dose: 50 mg Lorazepam (Ativan) 0.25 mg IV Q6H PRN PRN Reason: Anxiety Losartan Potassium (Cozaar) 25 mg PO DAILY [facility] Last Admin: 12/26/18 08:57 Dose: 25 mg Metoprolol Tartrate (Lopressor) 5 mg IVPUSH Q4H PRN PRN Reason: Tachycardia Ondansetron HCl (Zofran) 4 mg IV Q6H PRN PRN Reason: Nausea/Vomiting Oxycodone HCl (Oxycodone) 5 mg PO Q6H PRN PRN Reason: Pain Last Admin: 12/25/18 09:22 Dose: 5 mg Pantoprazole Sodium (Protonix) 40 mg PO ACBREAKFAST@0700 [facility] Last Admin: 12/27/18 06:06 Dose: 40 mg Silodosin 8 Mg 0 each PO DAILY@1800 [facility] Last Admin: 12/26/18 17:21 Dose: 1 each Polyethylene Glycol (Miralax) 17 gm PO DAILY PRN PRN Reason: Constipation Last Admin: 12/23/18 21:05 Dose: 17 gm Senna/Docusate Sodium (Senna Plus) 1 tab PO BID PRN PRN Reason: Constipation Sodium Chloride (Saline Flush) 10 ml FLUSH ASDIRECTED PRN PRN Reason: Keep Vein Open Last Admin: 12/21/18 16:05 Dose: 10 ml Temazepam (Restoril) 7.5 mg PO BEDTIME PRN PRN Reason: Sleep Last Admin: 12/26/18 20:21 Dose: 7.5 mg Warfarin Sodium (Pharmacy To Dose - Warfarin) 0 dose .XX ASDIRECTED PRN PRN Reason: RX TO DOSE WARFARIN Discontinued Medications Allopurinol (Zyloprim) 300 mg PO DAILY [facility] Last Admin: 12/22/18 09:25 Dose: 300 mg Amlodipine Besylate (Norvasc) 5 mg PO DAILY [facility] Last Admin: 12/24/18 09:07 Dose: 5 mg Belladonna Alkaloids/Opium (B & O Supprettes No. 15a) 1 supp RECTAL Q6H PRN PRN Reason: bladder spasm Bisacodyl (Dulcolax) 10 mg RECTAL ONETIME ONE Stop: 12/24/18 03:40 Last Admin: 12/24/18 04:47 Dose: 10 mg Clonidine HCl (Catapres) 0.1 mg PO ONETIME ONE Stop: 12/21/18 21:26 Last Admin: 12/21/18 22:53 Dose: 0.1 mg Colchicine (Colcrys) 0.6 mg PO QID PRN PRN Reason: Other Colchicine (Colcrys) 1.2 mg PO ONETIME ONE Stop: 12/26/18 12:12 Last Admin: 12/26/18 13:15 Dose: 1.2 mg Colchicine (Colcrys) 0.6 mg PO ONETIME ONE Stop: 12/26/18 13:31 Last Admin: 12/26/18 14:26 Dose: 0.6 mg Famotidine (Pepcid) 20 mg PO BID [facility] Last Admin: 12/24/18 09:07 Dose: 20 mg Finasteride (Proscar) 5 mg PO NOW STA Stop: 12/21/18 21:26 Last Admin: 12/21/18 22:55 Dose: 5 mg Furosemide (Lasix) 20 mg PO DAILY [facility] Last Admin: 12/22/18 09:30 Dose: Not Given Furosemide (Lasix) 20 mg PO DAILY [facility] Furosemide (Lasix) 40 mg PO ONETIME ONE Stop: 12/23/18 15:01 Last Admin: 12/23/18 15:33 Dose: 40 mg Gadobenate Dimeglumine (Multihance) 20 ml IVPUSH ONETIME ONE Stop: 12/23/18 11:57 Last Admin: 12/23/18 12:12 Dose: 20 ml Hydromorphone HCl (Dilaudid) 1 mg IVPUSH ONETIME ONE Stop: 12/21/18 15:50 Last Admin: 12/21/18 16:13 Dose: 1 mg Hydromorphone HCl (Dilaudid) 0.5 mg IVPUSH Q2H PRN PRN Reason: Pain (severe 7-10) Last Admin: 12/22/18 09:21 Dose: 0.5 mg Sodium Chloride (Normal Saline) 1,000 mls @ 999 mls/hr IV ONETIME ONE Stop: 12/21/18 16:49 Last Admin: 12/21/18 16:15 Dose: 999 mls/hr Sodium Chloride (Normal Saline) 1,000 mls @ 999 mls/hr IV ONETIME ONE Stop: 12/21/18 17:53 Last Admin: 12/21/18 17:15 Dose: 999 mls/hr Ceftriaxone Sodium 2 gm/ (Sodium Chloride) 100 mls @ 200 mls/hr IV NOW STA Stop: 12/21/18 17:53 Last Admin: 12/21/18 17:37 Dose: 200 mls/hr Ceftriaxone Sodium 1 gm/ (Sodium Chloride) 100 mls @ 200 mls/hr IV Q24H [facility] Last Admin: 12/22/18 09:10 Dose: Not Given Piperacillin Sod/Tazobactam (Sod 4.5 gm/ Sodium Chloride) 100 mls @ 200 mls/hr IV ONETIME ONE Stop: 12/22/18 09:44 Last Admin: 12/22/18 09:27 Dose: 200 mls/hr Piperacillin Sod/Tazobactam (Sod 4.5 gm/ Sodium Chloride) 100 mls @ 25 mls/hr IV Q8H [facility] Last Admin: 12/23/18 09:13 Dose: 25 mls/hr Sodium Chloride (Normal Saline) 500 mls @ 999 mls/hr IV .BOLUS ONE Stop: 12/22/18 14:04 Last Admin: 12/22/18 13:43 Dose: 999 mls/hr Sodium Chloride (Normal Saline) 100 mls @ 75 mls/hr IV ASDIRECTED HEATHER Stop: 12/22/18 16:00 Last Admin: 12/22/18 14:18 Dose: 75 mls/hr Cefazolin Sodium/Dextrose 1 gm (/ Premix) 50 mls @ 100 mls/hr IV Q8HR [facility] Last Admin: 12/26/18 05:10 Dose: 100 mls/hr Iopamidol (Isovue-370 (76%)) 100 ml IVPUSH ONETIME ONE Stop: 12/22/18 13:41 Last Admin: 12/22/18 14:18 Dose: 100 ml Ketorolac Tromethamine (Toradol) 30 mg IM ONETIME ONE Stop: 12/24/18 09:25 Last Admin: 12/24/18 12:03 Dose: Not Given Magnesium Hydroxide (Milk Of Magnesia) 30 ml PO ONETIME ONE Stop: 12/27/18 05:48 Last Admin: 12/27/18 06:11 Dose: Not Given Non-Formulary Medication (Telmisartan/Hydrochlorothiazid [Telmisartan-Hctz 80- 12.5 Mg Tb]) 1 tab PO DAILY [facility] Ondansetron HCl (Zofran) 4 mg IVPUSH ONETIME ONE Stop: 12/21/18 15:50 Last Admin: 12/21/18 16:11 Dose: 4 mg Silodosin 8 Mg 0 each PO DAILY [facility] Last Admin: 12/23/18 09:15 Dose: Not Given Potassium Chloride (Klor-Con M20) 40 meq PO ONETIME ONE Stop: 12/23/18 16:19 Last Admin: 12/23/18 16:28 Dose: 40 meq Sodium Chloride (Saline Flush) 10 ml FLUSH ONETIME PRN PRN Reason: IV FLUSH Stop: 12/22/18 16:00 Last Admin: 12/22/18 14:18 Dose: 10 ml Sodium Chloride (Saline Flush) 10 ml FLUSH ONETIME PRN PRN Reason: IV FLUSH Stop: 12/23/18 13:00 Last Admin: 12/23/18 12:12 Dose: 10 ml Warfarin Sodium (Coumadin) 5 mg PO DAILY@1800 [facility] Last Admin: 12/22/18 17:23 Dose: 5 mg Warfarin Sodium (Coumadin) 10 mg PO ONETIME ONE Stop: 12/21/18 21:18 Last Admin: 12/22/18 08:55 Dose: Not Given Warfarin Sodium (Coumadin) 5 mg PO ONETIME ONE Stop: 12/21/18 21:18 Last Admin: 12/21/18 22:51 Dose: 5 mg Warfarin Sodium (Coumadin Sliding Scale) 0 each PO QPM [facility] Stop: 12/23/18 18:01 Last Admin: 12/23/18 19:06 Dose: Not Given Warfarin Sodium (Coumadin Sliding Scale) 0 each PO QPM [facility] Stop: 12/24/18 18:01 Last Admin: 12/24/18 18:11 Dose: Not Given Warfarin Sodium (Coumadin) 7.5 mg PO QPM [facility] Stop: 12/25/18 18:01 Last Admin: 12/25/18 18:01 Dose: 7.5 mg Warfarin Sodium (Coumadin) 7.5 mg PO QPM [facility] Stop: 12/26/18 18:01 Last Admin: 12/26/18 17:21 Dose: 7.5 mg - Plan Plan:: Assessment: Acute: UTI/parostitis - pansensitive Escherichia coli - 2/2 recent indwelling catheter use - Has urinary retention from markedly enlarged prostate - UA shows hematuria and bacteruria--> GNR - Suprapubic pain with radiation to his left groin - Afebrile and with mild leukocytosis in ED - Increase Ancef 2 g every 8 hours - slight increase in white count to 9.75 with decreasing fevers and CRP 17.9 - Continue to monitor gram-negative abundio bacteremia - Repeat blood cultures - Continue IV antibiotics - Waiting for culture results - increase Ancef to 2 gm every 8 hours Urinary Retention - 2/2 Markedly Enlarged Prostate - Recently had guerrero catheter for it - He is able to void now per family - Bladder scan showed 46 ml of retained urine - He is on Silodosin for maintenance medication - Add 5-AR Inhibitor - Urology eval after discharge Abductor muscle strain bilaterally - MRI shows: 1. Diffuse edema within the abductor muscle groups on both sides , worse on the right side. Findings presumably due to previous trauma with partial muscle tearing. Infection is also a possibility, but seems unlikely without any more superficial edema being seen. 2. Markedly enlarged prostate gland. 3. Degenerative change is partially visualized within the lumbar spine. - MRI is consistent with patient's symptoms. Pain has worsened and we do not have physical therapy available. - Flexeril 10 mg tid prn Left Groin Pain with Generalized Weakness - No back pain, numbness or tingling to bilateral lower extremities - Reviewed Abdominal/Pelvis CT scan report: shows diffuse disc space narrowing and endplate osteophytes within the spine. Nothing acute is appreciated - U/S shows no blood clot - Uric Acid level is wnl - Originally ordered abdominal/pelvis/hip MRI but after discussing it with Dr. Cazares, he recommended Abdominal/Pelvis CTA - Abdominal/Pelvis CTA report: Slight atherosclerotic calcification within the common iliac arteries. No aorto-iliac dissection or occlusion. Branch vessels off the aorta also show no occlusion or focal stenosis. Degenerative change within the spine as well as vacuum phenomena within the sacroiliac joints - Lumbar x-ray done on 10/31/2018: Scoliosis as well as diffuse degenerative change - Pain with adduction, abduction, interna/external rotation, straight leg raise and flexion motion - Symptom may improve with weight loss - PRN pain medications, muscle relaxant, as well as PT/OT - If no response, consider ortho consult in AM Right foot pain and tenderness consistent with gout - Trial of colchicine - indomethacin 50 mg tid x 3 doses; no longer 2/2 warfarin Class II Obese - BMI of 35.9 - Advised LSM - Dietary consult for weight management 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 - INR of 1.68-->1.80 --> 2.8-->3.15-->2.1-->1.8 - He takes 5 mg po daily at home - Pharmacy to dose warfarin Resolved: S/p Lactic Acidosis - 2/2 Infection - Received 2L of NS in ED - Repeat LA S/p Accelerated/Malignant HTN - Carries a hx/o HTN - BP of 141/120 mmHg - He takes ARB/HCT combo for maintenance medications - Clonidine po x1 and PRN IV Hydralazine for BP > 150/90 mmHg - Losartan 25 mg po daily and Norvasc 5 mg po daily for inpatient maintenance medications Chronic: Cataract, Hx/o Blood Clot, HTN, Dextrocardia, GERD, BPH, Gout, Polycythemia, and Obesity Plan: Admit to [facility] Resume Home Meds except HCTZ due to Gout Routine AM Labs Regular Diet Dietary consult for Gout Diet and Weight Management Daily INR PT/OT eval Need urology eval after discharge SW/CM for d/c planning Code status: full Additional orders as above
[2018-12-27] MEDS: Cholecalciferol (Vitamin D3) 5,000 UNIT Tab PO SCH (08:54)
[2018-12-27] MEDS: Cyclobenzaprine 10 MG Tab PO PRN (08:54)
[2018-12-27] MEDS: Allopurinol 300 MG Tab PO SCH (08:54)
[2018-12-27] MEDS: Losartan 25 MG Tab PO SCH (08:57)
[2018-12-27] MEDS ORDERED: Levofloxacin 250 MG Tab PO ONE (13:51)
--- NOTE | 2018-12-27 15:22 | PCM.DCSUM1 ---
Discharge Summary - Hospital Course Brief History: This is a 63 yo Male with past medical hx/o Cataract, Hx /o Blood Clot, HTN, Dextrocardia, GERD, BPH, Gout, Polycythemia, and Obesity, who presents to ED with suprapubic pain with radiation into his groin. His symptom started Wednesday and was initially seen in ED for urinary retention. He was discharged with a guerrero catheter but came back in the evening due to leakage. His indwelling catheter was changed and he returned to ED this past Wednesday for removal. He did just fine up until yesterday. His daughter states that felt like he got a cold on Wednesday after he was rained on. His symptoms gradually worsen throughout the course of the day and yesterday he develops a subjective fever, chills, body aches, malaise, fatigue and too weak to walk. Patient carries a hx/o BPH on Silodosin. He has not seen a urologist since he moved here in [place] this past May. He has a new PCP (Radha Butt) but only seen her once unrelated to urinary retention. . His is initial workup in ED shows a CBC remarkable for WBC of 9.38, RBC of 6.14, MCV of 76.2, Platelet # of 116, MPV of 12.4, Neutrophils of 88%, and Lymphocytes of 4%. His coagulation studies show PT of 17.8 and INR of 1.68. His Chemistry is significant for Na of 133, BS of 161, LA of 2.3, Total Bilirubin of 1.6, CRP of 20.6 and Albumin of 3.1. His UA shows hematuria, many bacteria and adequate amount of WBC. His abdominal/pelvis CT scan report read as no renal calculi, ureteral dilatation or ureteral stone is seen. Markedly enlarged prostate gland. Nothing acute is appreciated on non-contrast CT study. Patient is primarily coming in for urinary tract infection secondary to recent guerrero catheter from urinary retention. Diagnosis: Stroke: No Modified [place] Scale: No Symptoms at All Modified [place] Scale Score: 0 - Discharge Data Discharge Date: 12/27/18 Discharge Disposition: Home, Self-Care 01 Condition: Good - Discharge Diagnosis/Problem(s) (1) Prostatitis, acute SNOMED Code(s): 33896462 ICD Code: N41.0 - ACUTE PROSTATITIS Status: Acute Problem Details: - 6 weeks of treatment (2) UTI (urinary tract infection) due to urinary indwelling catheter SNOMED Code(s): 433940124 ICD Code: T83.511A - I/I REACT D/T INDWELLING URETHRAL CATHETER, INIT; N39.0 - URINARY TRACT INFECTION, SITE NOT SPECIFIED Status: Acute Qualifiers: Indwelling urinary catheter type: indwelling urethral catheter Encounter type: initial encounter Qualified Code(s): T83.511A - Infection and inflammatory reaction due to indwelling urethral catheter, initial encounter; N39.0 - Urinary tract infection, site not specified (3) Bacteremia due to Escherichia coli SNOMED Code(s): 651249917439 ICD Code: R78.81 - BACTEREMIA Status: Resolved (4) Urinary retention due to benign prostatic hyperplasia SNOMED Code(s): 571141780, 941962533968546 ICD Code: N40.1 - BENIGN PROSTATIC HYPERPLASIA WITH LOWER URINARY TRACT SYMP ; R33.8 - OTHER RETENTION OF URINE Status: Chronic (5) Muscle tear SNOMED Code(s): 698928025 ICD Code: T14.8XXA - OTHER INJURY OF UNSPECIFIED BODY REGION, INITIAL ENCOUNTER Status: Acute (6) Left groin pain SNOMED Code(s): 28330167546498198 ICD Code: R10.32 - LEFT LOWER QUADRANT PAIN Status: Acute (7) Lactic acidosis SNOMED Code(s): 99762625 ICD Code: E87.2 - ACIDOSIS Status: Resolved (8) Malignant essential hypertension SNOMED Code(s): 98491931 ICD Code: I10 - ESSENTIAL (PRIMARY) HYPERTENSION Status: Resolved (9) Obesity (BMI 30.0-34.9) SNOMED Code(s): 783637125441618 ICD Code: E66.9 - OBESITY, UNSPECIFIED Status: Chronic - Patient Summary/Data Operative Procedure(s) Performed: None Complications: None Consults: Consultations 12/21/18 21:24 Consult to Dietary [Consult to Ground Support Equipment Mechanic] [CONS] Routine 12/21/18 21:43 Consult to Case Management/Director Of Strategic Sourcing [CONS] Routine OT Evaluation and Treatment [CONS] Routine PT Evaluation and Treatment [CONS] Routine Labs Pending at D/C: None Recommended Follow-up Testing/Procedures: Urology after discharge Planned Operative Procedure(s) after DC: None Hospital Course: Patient was primarily admitted for complicated catheter related urinary tract infection and acute prostatitis due to markedly enlarged prostate. He was initially seen in ED due to urinary retention but later on developed acute symptoms after it was removed. In fact, he developed bacteremia due to E. coli during his hospitalization. With intravenous IV antibiotic, he slowly improved on this regimen. His repeat blood cultures showed no organismal growth for 48hrs. His hospital course was complicated by findings of partial tear of the adductor muscles. But with pain medication, muscle relaxant, as well as PT/OT; he slowly improved and able to regain back his independence with the use of assistive device. Once medically stable, patient was then discharged with oral antibiotic to complete a 6 week course of treatment for his acute prostatitis. He was advised to comply with discharge instructions and follow up with family doctor after discharge. He was further advised to come back or seek immediate care should his symptoms persist or get worse. The patient and his family at bedside expressed understanding and in agreement with the plans as discussed above. All questions and concerns answered. - Patient Instructions Diet: Heart Healthy Diet, Usual Diet as Tolerated, Diabetic Diet, Weight Loss Diet Activity: As Tolerated Driving: Do Not Drive Showering/Bathing: May Shower Notify Provider of: Fever, Increased Pain, Swelling and Redness, Drainage, Nausea and/or Vomiting Other/Special Instructions: - Please take all new medications as directed. - Resume routine home medications and activity as tolerated. - Recommend repeat CBC, INR, BMP, Mg, and PSA level through your PCP's office after discharge. - Recommend urology eval outpatient after discharge. - Call or follow up with your doctor for any concerns or issues after discharge. - Follow up with your doctor in 1 week. - Come back or seek immediate care should your symptoms persist or get worse - Discharge Plan *PRESCRIPTION DRUG MONITORING PROGRAM REVIEWED*: No *COPY OF PRESCRIPTION DRUG MONITORING REPORT IN PATIENT YESSENIA: No Prescriptions/Med Rec: Acetaminophen/HYDROcodone [[place] 325-5 MG] 1 tab PO Q6H PRN #20 tablet PRN Reason: Pain (Moderate 4-6) Cholecalciferol (Vitamin D3) [Vitamin D3] 5,000 unit PO DAILY #30 tablet Cyclobenzaprine [Flexeril] 10 mg PO TID PRN #30 tablet PRN Reason: Muscle Spasm Docusate Sodium [Colace] 100 mg PO BID PRN #30 cap PRN Reason: Constipation Finasteride 5 mg PO BEDTIME #30 tablet Levofloxacin [Levaquin] 500 mg PO BEDTIME #35 tablet Saccharomyces Boulardii [Probiotic] 250 mg PO DAILY #35 capsule Home Medications: Home Meds Colchicine 0.6 mg PO QID PRN 08/04/18 [History] Pantoprazole Sodium [Protonix] 40 mg PO DAILY 08/04/18 [History] Silodosin 8 mg PO DAILY 08/04/18 [History] Telmisartan/Hydrochlorothiazid [Telmisartan-Hctz 80-12.5 mg Tb] 1 tab PO DAILY 08/04/18 [History] Warfarin [Coumadin] 5 mg PO DAILY 08/04/18 [History] Allopurinol [Zyloprim] 300 mg PO DAILY 11/28/18 [History] Ranitidine [Zantac] 150 mg PO BID 12/21/18 [History] Acetaminophen/HYDROcodone [[place] 325-5 MG] 1 tab PO Q6H PRN #20 tablet 12/27/18 [Rx] Cholecalciferol (Vitamin D3) [Vitamin D3] 5,000 unit PO DAILY #30 tablet [Rx] Cyclobenzaprine [Flexeril] 10 mg PO TID PRN #30 tablet 12/27/18 [Rx] Docusate Sodium [Colace] 100 mg PO BID PRN #30 cap 12/27/18 [Rx] Finasteride 5 mg PO BEDTIME #30 tablet 12/27/18 [Rx] Levofloxacin [Levaquin] 500 mg PO BEDTIME #35 tablet 12/27/18 [Rx] Saccharomyces Boulardii [Probiotic] 250 mg PO DAILY #35 capsule 12/27/18 [Rx] Oxygen Therapy Mode: Room Air Patient Handouts: Catheter-Associated Urinary Tract Infection FAQs - GABRIEL, Benign Prostatic Hyperplasia, Preventing Health Risks of Being Overweight, Hypertension, [id number], Metabolic Acidosis, Prostatitis, [id number], Acute Urinary Retention, Male, [id number], Bacteremia - Discharge Summary/Plan Comment DC Time >30 min.: No Discharge Summary/Plan Comment: Discharge to Home We went over discharge care plan with 2 daughters at bedside. Informed them the danger of taking muscle relaxant and narcotic +/- alcohol. Educated them about what he can and cannot do. And mostly importantly, stressed the importance of seeing a urologist after discharge. - General Info Date of Service: 12/27/18 Admission Dx/Problem (Free Text: Admission Diagnosis/Problem Admission Diagnosis/Problem Urinary tract infection Subjective Update: Follow Up Functional Status: Reports: Pain Controlled, Tolerating Diet, Ambulating, Urinating. Denies: New Symptoms - Review of Systems General: Denies: Fever, Weakness, Fatigue, Malaise, Chills HEENT: Reports: No Symptoms Pulmonary: Denies: Shortness of Breath Cardiovascular: Denies: Chest Pain, Dyspnea on Exertion, Lightheadedness Gastrointestinal: Denies: Abdominal Pain, Nausea, Vomiting Genitourinary: Reports: No Symptoms Musculoskeletal: Reports: Leg Pain Skin: Reports: No Symptoms Neurological: Reports: No Symptoms, Difficulty Walking, Weakness, Gait Disturbance. Denies: Confusion Psychiatric: Denies: Depression, Mood Lability, Anxiety, Agitation, Cravings, Hallucinations Systems Review Comment: No overnight or acute issues. He is doing relatively well and is ready to go home today. - Patient Data Vitals - Most Recent: Last Vital Signs Temp 36.5 C 12/27/18 08:43 Pulse 71 12/27/18 08:43 Resp 20 12/27/18 08:43 BP 126/89 12/27/18 08:57 Pulse Ox 97 12/27/18 08:43 Weight - Most Recent: 103.374 kg I&O - Last 24 hours: Intake & Output 12/27/18 12/27/18 12/27/18 06:59 14:59 22:59 Intake Total 800 240 Balance 800 240 Lab Results - Last 24 hrs: Laboratory Results - last 24 hr 12/27/18 12/27/18 12/27/18 Range/Units 07:10 07:10 07:10 WBC 8.79 (4.23-9.07) K/mm3 RBC 5.74 (4.63-6.08) M/mm3 Hgb 14.6 (13.7-17.5) gm/L Hct 44.7 (40.1-51.0) % MCV 77.9 L (79.0-92.2) fl MCH 25.4 L (25.7-32.2) pg MCHC 32.7 (32.2-35.5) g/dl RDW Std Deviation 45.7 H (35.1-43.9) fL Plt Count 269 (163-337) K/mm3 MPV 11.7 (9.4-12.3) fl Neut % (Auto) 67.7 (34.0-67.9) % Lymph % (Auto) 14.9 L (21.8-53.1) % [place] % (Auto) 7.1 (5.3-12.2) % Eos % (Auto) 3.1 (0.8-7.0) Baso % (Auto) 0.9 (0.1-1.2) % Neut # (Auto) 5.96 H (1.78-5.38) K/mm3 Lymph # (Auto) 1.31 L (1.32-3.57) K/mm3 [place] # (Auto) 0.62 (0.30-0.82) K/mm3 Eos # (Auto) 0.27 (0.04-0.54) K/mm3 Baso # (Auto) 0.08 (0.01-0.08) K/mm3 Manual Slide Review Abnormal smear PT 20.0 H (9.7-12.0) SECONDS INR 1.90 Sodium 141 (136-145) mEq/L Potassium 3.9 (3.5-5.1) mEq/L Chloride 105 (98-107) mEq/L Carbon Dioxide 31 (21-32) mEq/L Anion Gap 8.9 (5-15) BUN 22 H (7-18) mg/dL Creatinine 1.1 (0.7-1.3) mg/dL Est Cr Clr Drug Dosing 65.64 mL/min Estimated GFR (MDRD) > 60 (>60) mL/min BUN/Creatinine Ratio 20.0 H (14-18) Glucose 131 H (80-115) mg/dL Calcium 9.1 (8.5-10.1) mg/dL Total Bilirubin 0.5 (0.2-1.0) mg/dL AST 21 (15-37) U/L ALT 27 (16-63) U/L Alkaline Phosphatase 133 H (46-116) U/L C-Reactive Protein 17.9 H* (<1.0) mg/dL Total Protein 7.2 (6.4-8.2) g/dl Albumin 2.5 L (3.4-5.0) g/dl Globulin 4.7 gm/dL Albumin/Globulin Ratio 0.5 L (1-2) BÁRBARA Results - Last 24 hrs: Microbiology 12/25/18 13:30 Aerobic Blood Culture - Preliminary Blood - Venous - Lab Draw NO GROWTH AFTER 2 DAYS Anaerobic Blood Culture - Preliminary NO GROWTH AFTER 2 DAYS 12/25/18 13:30 Aerobic Blood Culture - Preliminary Blood - Venous NO GROWTH AFTER 2 DAYS Anaerobic Blood Culture - Preliminary NO GROWTH AFTER 2 DAYS 12/21/18 16:15 Aerobic Blood Culture - Preliminary Blood - Venous - Lab Draw Escherichia Coli Anaerobic Blood Culture - Preliminary NO GROWTH AFTER 5 DAYS 12/21/18 16:00 Aerobic Blood Culture - Preliminary Blood - Venous NO GROWTH AFTER 5 DAYS Anaerobic Blood Culture - Preliminary NO GROWTH AFTER 5 DAYS Med Orders - Current: Current Medications Acetaminophen (Tylenol) 650 mg PO Q4H PRN PRN Reason: Pain (Mild 1-3)/fever Hydrocodone Bitart/Acetaminophen ([place] 325-5 Mg) 1 tab PO Q4H PRN PRN Reason: Pain (moderate 4-6) Last Admin: 12/25/18 20:18 Dose: 1 tab Albuterol/Ipratropium (Duoneb 3.0-0.5 Mg/3 Ml) 3 ml NEB Q4H PRN PRN Reason: Shortness Of Breath/wheezing Allopurinol (Zyloprim) 300 mg PO DAILY [facility] Last Admin: 12/27/18 08:54 Dose: 300 mg Bisacodyl (Dulcolax) 5 mg PO DAILY PRN PRN Reason: Constipation Last Admin: 12/23/18 09:25 Dose: 5 mg Cholecalciferol (Vitamin D3) 5,000 unit PO DAILY [facility] Last Admin: 12/27/18 08:54 Dose: 5,000 unit Cyclobenzaprine HCl (Flexeril) 10 mg PO TID PRN PRN Reason: Muscle Spasm Last Admin: 12/27/18 08:54 Dose: 10 mg Docusate Sodium (Colace) 100 mg PO BID PRN PRN Reason: Constipation Last Admin: 12/22/18 22:37 Dose: 100 mg Finasteride (Proscar) 5 mg PO BEDTIME [facility] Last Admin: 12/26/18 20:21 Dose: 5 mg Hydralazine HCl (Apresoline) 20 mg IVPUSH Q4H PRN PRN Reason: Hypertension Hydromorphone HCl (Dilaudid) 1 mg IVPUSH Q2H PRN PRN Reason: Pain Promethazine HCl 6.25 mg/ (Sodium Chloride) 50.25 mls @ 100 mls/hr IV Q6H PRN PRN Reason: Nausea/Vomiting Cefazolin Sodium/Dextrose 2 gm (/ Premix) 50 mls @ 100 mls/hr IV Q8H [facility] Last Admin: 12/27/18 12:28 Dose: 100 mls/hr Lorazepam (Ativan) 0.25 mg IV Q6H PRN PRN Reason: Anxiety Losartan Potassium (Cozaar) 25 mg PO DAILY [facility] Last Admin: 12/27/18 08:57 Dose: 25 mg Metoprolol Tartrate (Lopressor) 5 mg IVPUSH Q4H PRN PRN Reason: Tachycardia Ondansetron HCl (Zofran) 4 mg IV Q6H PRN PRN Reason: Nausea/Vomiting Oxycodone HCl (Oxycodone) 5 mg PO Q6H PRN PRN Reason: Pain Last Admin: 12/25/18 09:22 Dose: 5 mg Pantoprazole Sodium (Protonix) 40 mg PO ACBREAKFAST@0700 [facility] Last Admin: 12/27/18 06:06 Dose: 40 mg Silodosin 8 Mg 0 each PO DAILY@1800 [facility] Last Admin: 12/26/18 17:21 Dose: 1 each Polyethylene Glycol (Miralax) 17 gm PO DAILY PRN PRN Reason: Constipation Last Admin: 12/23/18 21:05 Dose: 17 gm Senna/Docusate Sodium (Senna Plus) 1 tab PO BID PRN PRN Reason: Constipation Sodium Chloride (Saline Flush) 10 ml FLUSH ASDIRECTED PRN PRN Reason: Keep Vein Open Last Admin: 12/21/18 16:05 Dose: 10 ml Temazepam (Restoril) 7.5 mg PO BEDTIME PRN PRN Reason: Sleep Last Admin: 12/26/18 20:21 Dose: 7.5 mg Warfarin Sodium (Pharmacy To Dose - Warfarin) 0 dose .XX ASDIRECTED PRN PRN Reason: RX TO DOSE WARFARIN Warfarin Sodium (Coumadin) 7.5 mg PO QPM [facility] Stop: 12/27/18 18:01 Discontinued Medications Allopurinol (Zyloprim) 300 mg PO DAILY [facility] Last Admin: 12/22/18 09:25 Dose: 300 mg Amlodipine Besylate (Norvasc) 5 mg PO DAILY [facility] Last Admin: 12/24/18 09:07 Dose: 5 mg Belladonna Alkaloids/Opium (B & O Supprettes No. 15a) 1 supp RECTAL Q6H PRN PRN Reason: bladder spasm Bisacodyl (Dulcolax) 10 mg RECTAL ONETIME ONE Stop: 12/24/18 03:40 Last Admin: 12/24/18 04:47 Dose: 10 mg Clonidine HCl (Catapres) 0.1 mg PO ONETIME ONE Stop: 12/21/18 21:26 Last Admin: 12/21/18 22:53 Dose: 0.1 mg Colchicine (Colcrys) 0.6 mg PO QID PRN PRN Reason: Other Colchicine (Colcrys) 1.2 mg PO ONETIME ONE Stop: 12/26/18 12:12 Last Admin: 12/26/18 13:15 Dose: 1.2 mg Colchicine (Colcrys) 0.6 mg PO ONETIME ONE Stop: 12/26/18 13:31 Last Admin: 12/26/18 14:26 Dose: 0.6 mg Famotidine (Pepcid) 20 mg PO BID [facility] Last Admin: 12/24/18 09:07 Dose: 20 mg Finasteride (Proscar) 5 mg PO NOW STA Stop: 12/21/18 21:26 Last Admin: 12/21/18 22:55 Dose: 5 mg Furosemide (Lasix) 20 mg PO DAILY [facility] Last Admin: 12/22/18 09:30 Dose: Not Given Furosemide (Lasix) 20 mg PO DAILY [facility] Furosemide (Lasix) 40 mg PO ONETIME ONE Stop: 12/23/18 15:01 Last Admin: 12/23/18 15:33 Dose: 40 mg Gadobenate Dimeglumine (Multihance) 20 ml IVPUSH ONETIME ONE Stop: 12/23/18 11:57 Last Admin: 12/23/18 12:12 Dose: 20 ml Hydromorphone HCl (Dilaudid) 1 mg IVPUSH ONETIME ONE Stop: 12/21/18 15:50 Last Admin: 12/21/18 16:13 Dose: 1 mg Hydromorphone HCl (Dilaudid) 0.5 mg IVPUSH Q2H PRN PRN Reason: Pain (severe 7-10) Last Admin: 12/22/18 09:21 Dose: 0.5 mg Sodium Chloride (Normal Saline) 1,000 mls @ 999 mls/hr IV ONETIME ONE Stop: 12/21/18 16:49 Last Admin: 12/21/18 16:15 Dose: 999 mls/hr Sodium Chloride (Normal Saline) 1,000 mls @ 999 mls/hr IV ONETIME ONE Stop: 12/21/18 17:53 Last Admin: 12/21/18 17:15 Dose: 999 mls/hr Ceftriaxone Sodium 2 gm/ (Sodium Chloride) 100 mls @ 200 mls/hr IV NOW STA Stop: 12/21/18 17:53 Last Admin: 12/21/18 17:37 Dose: 200 mls/hr Ceftriaxone Sodium 1 gm/ (Sodium Chloride) 100 mls @ 200 mls/hr IV Q24H [facility] Last Admin: 12/22/18 09:10 Dose: Not Given Piperacillin Sod/Tazobactam (Sod 4.5 gm/ Sodium Chloride) 100 mls @ 200 mls/hr IV ONETIME ONE Stop: 12/22/18 09:44 Last Admin: 12/22/18 09:27 Dose: 200 mls/hr Piperacillin Sod/Tazobactam (Sod 4.5 gm/ Sodium Chloride) 100 mls @ 25 mls/hr IV Q8H [facility] Last Admin: 12/23/18 09:13 Dose: 25 mls/hr Sodium Chloride (Normal Saline) 500 mls @ 999 mls/hr IV .BOLUS ONE Stop: 12/22/18 14:04 Last Admin: 12/22/18 13:43 Dose: 999 mls/hr Sodium Chloride (Normal Saline) 100 mls @ 75 mls/hr IV ASDIRECTED [facility] Stop: 12/22/18 16:00 Last Admin: 12/22/18 14:18 Dose: 75 mls/hr Cefazolin Sodium/Dextrose 1 gm (/ Premix) 50 mls @ 100 mls/hr IV Q8HR [facility] Last Admin: 12/26/18 05:10 Dose: 100 mls/hr Indomethacin (Indocin) 50 mg PO TIDMEALS [facility] Stop: 12/27/18 13:01 Last Admin: 12/27/18 11:17 Dose: 50 mg Iopamidol (Isovue-370 (76%)) 100 ml IVPUSH ONETIME ONE Stop: 12/22/18 13:41 Last Admin: 12/22/18 14:18 Dose: 100 ml Ketorolac Tromethamine (Toradol) 30 mg IM ONETIME ONE Stop: 12/24/18 09:25 Last Admin: 12/24/18 12:03 Dose: Not Given Levofloxacin (Levaquin) 250 mg PO ONETIME ONE Stop: 12/27/18 13:52 Magnesium Hydroxide (Milk Of Magnesia) 30 ml PO ONETIME ONE Stop: 12/27/18 05:48 Last Admin: 12/27/18 06:11 Dose: Not Given Non-Formulary Medication (Telmisartan/Hydrochlorothiazid [Telmisartan-Hctz 80- 12.5 Mg Tb]) 1 tab PO DAILY [facility] Ondansetron HCl (Zofran) 4 mg IVPUSH ONETIME ONE Stop: 12/21/18 15:50 Last Admin: 12/21/18 16:11 Dose: 4 mg Silodosin 8 Mg 0 each PO DAILY [facility] Last Admin: 12/23/18 09:15 Dose: Not Given Potassium Chloride (Klor-Con M20) 40 meq PO ONETIME ONE Stop: 12/23/18 16:19 Last Admin: 12/23/18 16:28 Dose: 40 meq Sodium Chloride (Saline Flush) 10 ml FLUSH ONETIME PRN PRN Reason: IV FLUSH Stop: 12/22/18 16:00 Last Admin: 12/22/18 14:18 Dose: 10 ml Sodium Chloride (Saline Flush) 10 ml FLUSH ONETIME PRN PRN Reason: IV FLUSH Stop: 12/23/18 13:00 Last Admin: 12/23/18 12:12 Dose: 10 ml Warfarin Sodium (Coumadin) 5 mg PO DAILY@1800 [facility] Last Admin: 12/22/18 17:23 Dose: 5 mg Warfarin Sodium (Coumadin) 10 mg PO ONETIME ONE Stop: 12/21/18 21:18 Last Admin: 12/22/18 08:55 Dose: Not Given Warfarin Sodium (Coumadin) 5 mg PO ONETIME ONE Stop: 12/21/18 21:18 Last Admin: 12/21/18 22:51 Dose: 5 mg Warfarin Sodium (Coumadin Sliding Scale) 0 each PO QPM [facility] Stop: 12/23/18 18:01 Last Admin: 12/23/18 19:06 Dose: Not Given Warfarin Sodium (Coumadin Sliding Scale) 0 each PO QPM [facility] Stop: 12/24/18 18:01 Last Admin: 12/24/18 18:11 Dose: Not Given Warfarin Sodium (Coumadin) 7.5 mg PO QPM [facility] Stop: 12/25/18 18:01 Last Admin: 12/25/18 18:01 Dose: 7.5 mg Warfarin Sodium (Coumadin) 7.5 mg PO QPM [facility] Stop: 12/26/18 18:01 Last Admin: 12/26/18 17:21 Dose: 7.5 mg - Exam General: Reports: Alert, Oriented, Cooperative, No Acute Distress HEENT: Reports: Pupils Equal, Pupils Reactive, EOMI, Mucous Membr. Moist/[place] Neck: Reports: Supple Lungs: Reports: Clear to Auscultation, Normal Respiratory Effort Cardiovascular: Reports: Regular Rate, Regular Rhythm GI/Abdominal Exam: Normal Bowel Sounds, Soft, Non-Tender, No Organomegaly, No Distention, No Abnormal Bruit, No Mass (Male) Exam: Deferred Rectal (Males) Exam: Deferred Back Exam: Reports: Normal Inspection, Decreased Range of Motion Extremities: Normal Inspection, Normal Range of Motion, Non-Tender, No Pedal Edema, Normal Capillary Refill Skin: Reports: Warm, Dry, Intact Neurological: Reports: No New Focal Deficit, Sensation Intact, Other (some weakness on bilateral lower extremity but able to ambulate with a walker). Denies: Normal Gait Psy/Mental Status: Reports: Alert, Normal Affect, Normal Mood Physical Findings Comments:: His pain is well controlled
[2018-12-27] MEDS ORDERED: Warfarin 7.5 MG Tab PO SCH (18:00)
== END 2018-12-27 16:30 | disposition home or self-care (01) | DRG 699 ==
LOC: JD.ED 13:40 → JD.MS 19:19
PROVIDERS: ADMIT Internal Medicine; ATTEND Internal Medicine
DX: T83.511A Infection and inflammatory reaction due to indwelling urethral catheter, initial encounter (principal); N12 Tubulo-interstitial nephritis, not specified as acute or chronic; Z86.718 Personal history of other venous thrombosis and embolism; N41.0 Acute prostatitis; E87.2 Acidosis; Q24.0 Dextrocardia; N40.0 Benign prostatic hyperplasia without lower urinary tract symptoms; S56.312A Strain of extensor or abductor muscles, fascia and tendons of left thumb at forearm level, initial encounter; S56.311A Strain of extensor or abductor muscles, fascia and tendons of right thumb at forearm level, initial encounter; Z68.30 Body mass index [BMI] 30.0-30.9, adult; D75.1 Secondary polycythemia; I10 Essential (primary) hypertension; M16.12 Unilateral primary osteoarthritis, left hip; K21.9 Gastro-esophageal reflux disease without esophagitis; M10.9 Gout, unspecified; Y84.6 Urinary catheterization as the cause of abnormal reaction of the patient, or of later complication, without mention of misadventure at the time of the procedure; E66.9 Obesity, unspecified; R79.1 Abnormal coagulation profile; R33.8 Other retention of urine; N40.1 Benign prostatic hyperplasia with lower urinary tract symptoms; X58.XXXA Exposure to other specified factors, initial encounter; B96.20 Unspecified Escherichia coli [E. coli] as the cause of diseases classified elsewhere; Z68.35 Body mass index [BMI] 35.0-35.9, adult; Z98.49 Cataract extraction status, unspecified eye; Z99.81 Dependence on supplemental oxygen; Z79.899 Other long term (current) drug therapy; Z90.89 Acquired absence of other organs; Z79.2 Long term (current) use of antibiotics; Y93.89 Activity, other specified; Y92.89 Other specified places as the place of occurrence of the external cause; Z79.01 Long term (current) use of anticoagulants
CPT/HCPCS: 36415; 74176; 80053; 81001; 83036; 83605; 85007; 85027; 85610; 86140; 87040 ×2; 87077; 87086; 87088; 87186 ×2; 96361; 96365; 96375; 99285; J0696; J1170; J2405; J7030; J7040 ×2; 51798; 72197; 72197-26; 74177; 74177-26; 80048; 82306; 82550; 83735; 84550; 85025; 85379; 93970; 93970-26; 97110-GO; 97116-GP; 97162-GP; 97167-GO; 97530-GO; 97530-GP; 99282; A9270-GY; A9577; J0690; J2543; Q9967